=== PATIENT | female | born 1965 | race Caucasian/White ===

== ENCOUNTER 2017-06-07 14:49 | Emergency (ER) | payer OTHER ==
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
[2017-06-07 16:38] VITALS: BP 152/79; PULSE 86; RESP 17; TEMP 97.2
== END 2017-06-07 17:21 | disposition home or self-care (01) ==
LOC: EC 14:49
DX: S22.079A Unspecified fracture of T9-T10 vertebra, initial encounter for closed fracture (principal); S93.402A Sprain of unspecified ligament of left ankle, initial encounter; S80.01XA Contusion of right knee, initial encounter; Z98.890 Other specified postprocedural states; Z87.891 Personal history of nicotine dependence; Z79.899 Other long term (current) drug therapy; Z91.018 Allergy to other foods; Z91.040 Latex allergy status; Z91.013 Allergy to seafood; Z91.011 Allergy to milk products; V89.2XXA Person injured in unspecified motor-vehicle accident, traffic, initial encounter; Y92.410 Unspecified street and highway as the place of occurrence of the external cause
CPT/HCPCS: 71020; 72072; 99284

== ENCOUNTER 2017-06-10 07:52 | Emergency (ER) | payer OTHER ==
[2017-06-10 08:01] VITALS: RESP 18
[2017-06-10] MEDS ORDERED: MELOXICAM 7.5 MG TAB PO STA (08:24)
--- NOTE | 2017-06-10 09:02 | XR ---
Cervical spine HISTORY: Trauma and pain 5 views of the cervical spine submitted on 7 images There is spondylosis, loss of disc height at C5-6. Cervical vertebral bodies show preserved height an d alignment. Prevertebral soft tissues are normal. Bone mineralization within normal limits. No signi ficant foraminal encroachment. IMPRESSION: Degenerative disc disease. No acute fracture or subluxation.
--- NOTE | 2017-06-10 09:08 | XR ---
Left shoulder HISTORY: Left shoulder pain 3 views of the left shoulder There is hypertrophic change of the acromioclavicular joint. Calcifications in the greater tuberosity could be indicative of calcific tendinitis. Bone mineralization is mildly reduced, I question permea tive pattern, lucency following the left humerus proximally. Alignment is maintained. Left lung apex as visualized is normal. No acute fracture or dislocation evident. IMPRESSION: No acute fracture. Lucent appearance of the humerus is indeterminate, consider bone scan, shoulder MRI, metastatic disease, myeloma not excluded. Report relayed to Chinyere telephonically at the time of interpretation.
--- NOTE | 2017-06-10 09:12 | XR ---
AP pelvis HISTORY: Trauma and pain Single frontal view pelvis, no comparisons There are punched-out lucent appearing foci within the proximal lower extremities, pelvis. Alignment and joint spaces maintained. IMPRESSION: No acute fracture or dislocation. Correlate for possible metastatic disease, multiple mye katy.
[2017-06-10 10:14] LABS: Basophils # (A) 0.1 k/uL (0-0.2); Basophils % (A) 1 %; CH 29.8; CHCM 33.5; Eosinophils # (A) 0.1 k/uL (0-0.7); Eosinophils % (A) 1 %; HCT 43.8 % (34.0-46.0); HDW 2.38; HGB 14.3 gm/dL (11.4-16.0); Luc % (Auto) 1; Lymphocytes # (A) 2.2 k/uL (1.0-4.8); Lymphocytes % (A) 20 %; MCH 29.2 pg (25.0-35.0); MCHC 32.7 g/dL (31.0-37.0); MCV 89.3 fL (80.0-100.0); Monocytes # (A) 0.6 k/uL (0-1.0); Monocytes % (A) 5 %; Neutrophils # (A) 8.3 k/uL (1.3-7.7); Neutrophils % (A) 73 %; RDW 14.5 % (11.5-15.5); WBC 11.4 k/uL (3.8-10.6); WBC (Perox) 11.37
[2017-06-10 10:27] LABS: Prothrombin Time 10.2 sec (9.0-12.0)
[2017-06-10 10:29] LABS: ALT 36 U/L (9-52); AST 35 U/L (14-36); Alkaline Phosphatase 234 U/L (38-126); Anion Gap 13 mmol/L; Blood Urea Nitrogen 18 mg/dL (7-17); Calcium 10.6 mg/dL (8.4-10.2); Carbon Dioxide 24 mmol/L (22-30); Chloride 103 mmol/L (98-107); Glucose 94 mg/dL (74-99); Non-African American GFR(MDRD) >60 (>60 ml/min/1.73 sqM); Phosphorus 5.1 mg/dL (2.5-4.5); Sodium 140 mmol/L (137-145); Total Bilirubin 0.6 mg/dL (0.2-1.3); Total Protein 7.2 g/dL (6.3-8.2)
[2017-06-10 10:33] LABS: Partial Thromboplastin Time 22.4 sec (22.0-30.0)
[2017-06-10 10:40] LABS: Potassium 4.2 mmol/L (3.5-5.1)
[2017-06-10] MEDS ORDERED: ACET/COD 300 MG/30 MG STARTER PACK 6 TAB BTL PO STA (11:09)
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
[2017-06-10 11:30] VITALS: BP 134/70; PULSE 83; TEMP 97
== END 2017-06-10 11:30 | disposition home or self-care (01) ==
LOC: EC 07:52
DX: S40.012A Contusion of left shoulder, initial encounter (principal); M89.8X8 Other specified disorders of bone, other site; R74.8 Abnormal levels of other serum enzymes; R79.89 Other specified abnormal findings of blood chemistry; M54.2 Cervicalgia; M25.551 Pain in right hip; M25.552 Pain in left hip; Z87.891 Personal history of nicotine dependence; Z79.899 Other long term (current) drug therapy; Z91.011 Allergy to milk products; Z91.013 Allergy to seafood; Z91.018 Allergy to other foods; Z91.040 Latex allergy status; V43.53XA Car driver injured in collision with pick-up truck in traffic accident, initial encounter; Y92.410 Unspecified street and highway as the place of occurrence of the external cause
CPT/HCPCS: 36415; 72050; 72170; 80053; 83605; 84100; 85025; 85610; 85730; 99284

== ENCOUNTER → 2017-06-21 | Outpatient (CLI) | payer OTHER ==
--- NOTE | 2017-06-21 13:25 | MM ---
Reason for exam: clinical finding. Last mammogram was performed 10 years and 1 month ago. Physical Findings: Nurse Summary: 3cm nodule in the right breast at 12 o'clock (nurses mj). [facility] Diagnostic Mammo w CAD FAHEEM Bilateral CC and MLO view(s) were taken. ML, spot compression CC, and spot compression MLO view(s) were taken of the left breast. Prior study comparison: May 18, 2007, bilateral [place] screening mammogram, performed at [facility]. The breast tissue is heterogeneously dense. This may lower the sensitivity of mammography. Spiculated mass 3.8 x 3.3 x 3.7cm with pleomorphic calcifications in the right breast at 12 o'clock. Additional spiculated mass in the right axilla measures 2 x 1.5cm. Asymmetric density upper outer quadrant left breast improves with spot imaging. Ultrasound recommended. These results were verbally communicated with the patient and result sheet given to the patient on 06/21/17. ASSESSMENT: Incomplete: need additional imaging evaluation, BI-RAD 0 RECOMMENDATION: Ultrasound of both breasts.
--- NOTE | 2017-06-21 13:36 | USB ---
Reason for exam: additional evaluation requested from abnormal screening. US Breast Limited BILAT Technologist: Denisse Noriega Right breast ultrasound includes all four quadrants, the retroareolar region and axilla. Finding demonstrates a 2.9 x 3.1 x 2.5cm oval, irregular, hypoechoic lesion at 12 o'clock for which a biopsy is recommended, a 1.9 x 1.1 x 1.7cm irregular, taller than wide, hypoechoic, vascular lesion at the axillary tail for which a biopsy is recommended and a 0.8 x 0.5 x 0.4cm questionable lymph node at the axillary tail. Left breast ultrasound demonstrates so solid or cystic masses in the upper outer quadrant. These results were verbally communicated with the patient and result sheet given to the patient on 06/21/17. ASSESSMENT: Highly suggestive of malignancy, BI-RAD 5 - Right RECOMMENDATION: Ultrasound core biopsy of the right breast. (right breast x 2) Manage patient on a clinical basis. Called Dr. Hope with mammographic findings. Biopsy scheduled for 06/24/17 at 11:30. PRELIMINARY REPORT CALLED AND FAXED TO DR. HOPE ON 06/21/17. Follow-up diagnostic mammogram of the left breast in 6 months.
== END | disposition home or self-care (01) ==
LOC: RADMAMWWP 09:58
PROVIDERS: ATTEND Internal Medicine Hematology & Oncology
DX: R92.8 Other abnormal and inconclusive findings on diagnostic imaging of breast (principal); N63.0 Unspecified lump in unspecified breast
CPT/HCPCS: 76642; G0204

== ENCOUNTER → 2017-06-22 | Outpatient (CLI) | payer OTHER ==
--- NOTE | 2017-06-22 23:23 | MR ---
EXAMINATION TYPE: MR thoracic spine wo/w con DATE OF EXAM: 06/22/2017 COMPARISON: NONE HISTORY: Back Pain / Cancer of Unknown Primary CONTRAST: Standard multiplanar, multisequence MRI departmental protocol utilizing 7.5 mL intravenous Gadavist g adolinium contrast. FINDINGS: On the T1-weighted images there is decreased signal in numerous thoracic vertebral bodies i n a patchy distribution. There is a 25% compression deformity of T10. Abnormal decreased signal also extends into the pedicles of T10 and T11. There is T7 low signal extending into the pedicles. There i s slight decreased signal in T4 vertebra and a small area of T5. The other vertebra show smaller patc hy areas of abnormal decreased signal. The contrast images show numerous areas of pathologic enhancement. This extends into the pedicles. Th is is most notable at T10 T11 T7 T-3. There is no spinal stenosis. Thoracic spinal cord has normal signal pattern. There is no paraspinal m ass. IMPRESSION: Mild compression fracture of T10. Patchy abnormal decreased signal in multiple vertebral bodies with pathologic enhancement pattern including the pedicles that is consistent with malignancy.
== END | disposition home or self-care (01) ==
LOC: RADMRIMAIN 07:30
PROVIDERS: ATTEND Internal Medicine Hematology & Oncology
DX: S22.079A Unspecified fracture of T9-T10 vertebra, initial encounter for closed fracture (principal); C80.0 Disseminated malignant neoplasm, unspecified
CPT/HCPCS: 72157; A9581

== ENCOUNTER → 2017-07-12 | Outpatient (CLI) | payer OTHER | END | disposition home or self-care (01) | LOC: LABWHC1 13:31 | PROVIDERS: ATTEND Radiology Radiation Oncology | DX: O02.81 Inappropriate change in quantitative human chorionic gonadotropin (hCG) in early pregnancy (principal); Z3A.00 Weeks of gestation of pregnancy not specified | CPT/HCPCS: 36415; 84702 ==

== ENCOUNTER 2017-07-23 11:35 | Inpatient (IN) | payer OTHER ==
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
[2017-07-23] MEDS ORDERED: ONDANSETRON 4 MG/2 ML VIAL IVP STA (13:55)
[2017-07-23] MEDS ORDERED: HYDROmorphone 1 MG/ML 1 ML SYRINGE IVP STA (13:55)
--- NOTE | 2017-07-23 14:02 | XR ---
EXAMINATION TYPE: XR Hip RT and AP Pelvis DATE OF EXAM: 07/23/2017 COMPARISON: 06/10/2017 HISTORY: Hip pain TECHNIQUE: A single AP view of the pelvis is obtained. Two views of the right hip are obtained. FINDINGS: There is an acute fracture of the right femoral neck with significant impaction. There is no dislocation. Pelvic ring is intact. CONCLUSION: Acute fracture right femoral neck.
--- NOTE | 2017-07-23 14:03 | XR ---
EXAMINATION TYPE: XR knee limited RT DATE OF EXAM: 07/23/2017 COMPARISON: NONE HISTORY: Pain TECHNIQUE: 2 views FINDINGS: I see no fracture nor dislocation. There is probably subcutaneous edema. There is narrowing of the lateral joint space. IMPRESSION: Osteoarthritis in the lateral joint space. No fracture seen.
--- NOTE | 2017-07-23 14:07 | XR ---
EXAMINATION TYPE: XR lumbar spine 2 or 3V DATE OF EXAM: 07/23/2017 COMPARISON: 07/16/2017 HISTORY: Pain TECHNIQUE: 4 views FINDINGS: The vertebra have fairly normal alignment. There is slight narrowing of disc spaces. There is loss of height of L5 L3 L1 T10 related to multiple pathologic compression fractures. IMPRESSION: Multiple mild compression fractures without change compared to CT scan of 07/16/2017. Mot tled lucency in the bony structures consistent with metastatic disease.
--- NOTE | 2017-07-23 14:08 | XR ---
EXAMINATION TYPE: XR ankle limited RT DATE OF EXAM: 07/23/2017 COMPARISON: NONE HISTORY: Pain TECHNIQUE: 2 views FINDINGS: There are large plantar and Achilles calcaneal spurs. Ankle mortise is anatomic. I see no f racture nor dislocation. There is soft tissue swelling of the forefoot. IMPRESSION: Calcaneal spurring. No fracture seen.
--- NOTE | 2017-07-23 14:10 | XR ---
EXAMINATION TYPE: XR chest 1V DATE OF EXAM: 07/23/2017 COMPARISON: 06/07/2017 HISTORY: Hip pain TECHNIQUE: Single frontal view of the chest is obtained. FINDINGS: There is no heart failure nor confluent pneumonic infiltrate. Costophrenic angles are judith r. IMPRESSION: No active cardiopulmonary disease. No adverse change compared to old exam.
[2017-07-23] MEDS ORDERED: NALOXONE 0.4 MG/ML 1 ML VIAL IV PRN (14:34)
[2017-07-23 14:36] LABS: Anisocytosis Slight; Basophils % (A) 0 %; Eosinophils # (A) 0.2 k/uL (0-0.7); Eosinophils % (A) 1 %; HCT 36.1 % (34.0-46.0); HGB 11.4 gm/dL (11.4-16.0); Lymphocytes # (A) 1.7 k/uL (1.0-4.8); Lymphocytes % (A) 14 %; MCH 28.8 pg (25.0-35.0); MCHC 31.5 g/dL (31.0-37.0); MCV 91.4 fL (80.0-100.0); Monocytes # (A) 0.6 k/uL (0-1.0); Monocytes % (A) 5 %; Neutrophils # (A) 9.4 k/uL (1.3-7.7); Neutrophils % (A) 78 %; Platelet Count 433 k/uL (150-450); RBC 3.95 m/uL (3.80-5.40); RDW 16.5 % (11.5-15.5); WBC 12.1 k/uL (3.8-10.6)
[2017-07-23 14:44] LABS: ALT 59 U/L (9-52); AST 33 U/L (14-36); Albumin 3.1 g/dL (3.5-5.0); Alkaline Phosphatase 329 U/L (38-126); Anion Gap 3 mmol/L; Blood Urea Nitrogen 14 mg/dL (7-17); Calcium 8.4 mg/dL (8.4-10.2); Carbon Dioxide 27 mmol/L (22-30); Chloride 109 mmol/L (98-107); Glucose 96 mg/dL (74-99); Potassium 4.3 mmol/L (3.5-5.1); Sodium 139 mmol/L (137-145); Total Bilirubin 0.8 mg/dL (0.2-1.3); Total Protein 5.5 g/dL (6.3-8.2)
[2017-07-23 15:00] LABS: Partial Thromboplastin Time 20.6 sec (22.0-30.0)
--- NOTE | 2017-07-23 15:00 | XR ---
EXAMINATION TYPE: XR femur RT DATE OF EXAM: 07/23/2017 COMPARISON: NONE HISTORY: Pain TECHNIQUE: 4 views FINDINGS: There is impacted subcutaneous fracture of the right femoral neck. There is no dislocation. Mid and distal femur are intact. There is some relative lucency of the femoral neck consistent with pathologic fracture. IMPRESSION: Acute fracture of femoral neck.
[2017-07-23] MEDS: HYDROmorphone 1 MG/ML 1 ML SYRINGE IVP PRN ×2 (16:53→20:28)
[2017-07-23 17:25] VITALS: BMI 27.5
[2017-07-23] MEDS ORDERED: HYDROcodone/APAP 5-325MG 1 EACH TAB PO PRN (18:59)
[2017-07-23] MEDS ORDERED: ALPRAZolam 0.25 MG TAB PO PRN (18:59)
[2017-07-23] MEDS ORDERED: ONDANSETRON 4 MG TAB PO PRN (19:00)
[2017-07-23] MEDS ORDERED: LORATADINE 10 MG TAB PO PRN (19:00)
[2017-07-23] MEDS ORDERED: SUMATRIPTAN NASAL PRN (19:00)
[2017-07-23] MEDS ORDERED: Acetaminophen-Codeine 300-30mg TAB PO PRN (19:00)
[2017-07-23] MEDS ORDERED: METHOCARBAMOL 500 MG TAB PO PRN (19:00)
[2017-07-23] MEDS ORDERED: TEMAZEPAM 15 MG CAP PO PRN (21:00)
[2017-07-23] MEDS: SENNOSIDES 8.6 MG TAB PO SCH (21:36)
[2017-07-23] MEDS: MORPHINE SULFATE ER 15 MG TABLET PO SCH (21:39)
[2017-07-23] MEDS: HEPARIN SODIUM,PORCINE 5,000 UNIT/ML 1 ML VIAL SQ SCH (21:39)
[2017-07-23] MEDS: DEXAMETHASONE 4 MG TAB PO SCH (21:39)
[2017-07-23] MEDS: CYCLOBENZAPRINE 5 MG TAB PO PRN (23:35)
[2017-07-23 23:53] LABS: Appearance,Urine Clear (Clear); Bacteria,Urine Rare /hpf; Bilirubin,Urine Negative (Negative); Blood,Urine Small (Negative); Color,Urine Light Yellow; Glucose,Urine (UA) Negative (Negative); Ketones,Urine Negative (Negative); Leukocyte Esterase,Urine Small (Negative); Mucus,Urine Moderate /hpf; Nitrite,Urine Negative (Negative); PH, Urine 6.5 (5.0-8.0); Protein,Urine Negative (Negative); RBC,Urine 13 /hpf (0-5); Squamous Epithelial Cell,Urine <1 /hpf (0-4); Urobilinogen,Urine <2.0 mg/dL (<2.0); WBC,Urine 11 /hpf (0-5)
[2017-07-24] MEDS: HYDROmorphone 1 MG/ML 1 ML SYRINGE IVP PRN ×5 (02:17→17:25)
[2017-07-24] MEDS: ONDANSETRON 4 MG/2 ML VIAL IVP PRN ×2 (05:48→14:23)
[2017-07-24 07:18] LABS: Basophils % (A) 0 %; Eosinophils % (A) 0 %; HCT 36.7 % (34.0-46.0); HGB 11.4 gm/dL (11.4-16.0); Lymphocytes # (A) 0.8 k/uL (1.0-4.8); Lymphocytes % (A) 8 %; MCHC 31.1 g/dL (31.0-37.0); MCV 93.2 fL (80.0-100.0); Mean Platelet Volume 6.7; Monocytes # (A) 0.3 k/uL (0-1.0); Monocytes % (A) 3 %; Neutrophils # (A) 9.4 k/uL (1.3-7.7); Neutrophils % (A) 89 %; Platelet Count 490 k/uL (150-450); RBC 3.94 m/uL (3.80-5.40); RDW 15.4 % (11.5-15.5); WBC 10.5 k/uL (3.8-10.6)
[2017-07-24] MEDS: MORPHINE SULFATE ER 15 MG TABLET PO SCH ×2 (07:20→20:36)
[2017-07-24] MEDS: TAMOXIFEN 10 MG TAB PO SCH (07:22)
[2017-07-24] MEDS: SENNOSIDES 8.6 MG TAB PO SCH ×2 (07:23→20:37)
[2017-07-24] MEDS: PANTOPRAZOLE 40 MG TABLET PO SCH (07:23)
[2017-07-24] MEDS: HEPARIN SODIUM,PORCINE 5,000 UNIT/ML 1 ML VIAL SQ SCH ×2 (07:23→20:37)
[2017-07-24] MEDS: MELOXICAM 7.5 MG TAB PO SCH (07:23)
[2017-07-24] MEDS: MAGNESIUM OXIDE 400 MG TAB PO SCH (07:23)
[2017-07-24] MEDS: MULTIVITAMINS, THERA 1 EACH TAB PO SCH (07:23)
[2017-07-24] MEDS: POTASSIUM CHLORIDE ORAL LIQUID 40 MEQ/30 ML CUP PO SCH (07:24)
[2017-07-24 07:31] LABS: ALT 50 U/L (9-52); AST 23 U/L (14-36); Albumin 3.1 g/dL (3.5-5.0); Alkaline Phosphatase 312 U/L (38-126); Anion Gap 6 mmol/L; Blood Urea Nitrogen 10 mg/dL (7-17); Calcium 8.7 mg/dL (8.4-10.2); Carbon Dioxide 27 mmol/L (22-30); Chloride 107 mmol/L (98-107); Glucose 131 mg/dL (74-99); Potassium 4.7 mmol/L (3.5-5.1); Sodium 140 mmol/L (137-145); Total Bilirubin 0.7 mg/dL (0.2-1.3); Total Protein 5.6 g/dL (6.3-8.2)
--- NOTE | 2017-07-24 07:50 | HP ---
HISTORY AND PHYSICAL DATE OF VISIT: 07/23/2017. REASON FOR ADMISSION: Right femoral neck fracture. HISTORY: Swati is a very pleasant, 51-year-old female, who carries a recent diagnosis of stage IV metastatic breast cancer with extensive metastasis to her to her spine. She had just as recently as 2 days ago been admitted to [facility] in [place] for treatment for her back. She is in currently being worked up for her metastatic breast cancer by Dr. Hope. There was also mention of a possibility for . This was as per Swati. She was scheduled to meet with [facility] specialist with regards to elevated levels that were concerning for potential . Earlier today, she felt as if her right leg gave out. She fell onto her right side and had immediate pain in her right hip. She was brought to [facility] via ambulance. Workup including x-rays revealed a displaced femoral neck fracture. She was admitted to my service. Swati has no complaints of pain other than right hip. MEDICAL HISTORY: Breast cancer with metastasis to the bone. SURGICAL HISTORY: Cholecystectomy. MEDICATIONS: Include potassium, dexamethasone, tamoxifen, [place] 10 mg and Ms Contin 15 mg. ALLERGIES: AVOCADO, IODINATED CONTRAST, LATEX, SHELLFISH, WHEAT, COCONUT AND LACTOSE. SOCIAL HISTORY: She is a former smoker. EXAM: Her T-max is 98.4, blood pressure 149/75, heart rate is 107, O2 saturation is 99% on room air. On physical exam, her right hip is flexed and externally rotated. She has no pain with palpation of the distal femur, knee, tibia, fibula, ankle or foot. She has intact flexion-extension, inversion, eversion of the right foot. She has intact flexion extension of all of her toes and she has intact lateral, medial, plantar and first dorsal web space sensation in the right foot. She has 2+ palpable posterior tibial pulse and brisk capillary refill in all of her toes. She has no pain with palpation and range of motion of all other long bones and joints with the exception of the right hip. X-RAYS: Views of the AP pelvis, right hip, as well as right femur reveals a significantly displaced femoral neck fracture. There is no evidence of any bony metastasis about the hip or right femur. LABORATORIES: White count 12.1, hemoglobin 11.4, platelets are 433, INR is 1.0. IMPRESSION: 1. Right femoral neck fracture. 2. History of stage IV metastatic breast cancer with metastasis to bone. RECOMMENDATIONS: I discussed the fracture as well as plan for care with Swati at the bedside today. All of this diagnosis has come rather quickly for a Swati. She has only recently been diagnosed with breast cancer with metastasis to the bone. According to Swati, she has very extensive metastasis to her spine. She has noted that she was recently admitted to [facility] 2 days ago. There is also this vague history of elevated levels and there was some concern for an active . Swati is very skeptical of that as she feels as if that is not possible; however, she was being worked up for that and had an upcoming appointment with [facility]. Given her metastatic breast cancer as well as the fact she is on dexamethasone, I feel that it would be more reasonable course to proceed with right hip hemiarthroplasty instead of attempting an open reduction internal fixation of her right hip. I did discuss this decision-making process with Swati. This will allow her to mobilize much quicker. I do feel given the significant displacement of the fracture as well as her medical comorbidities the ability to successfully heal a femoral neck fracture will be very low. My thought processes is that we can mobilize Swati much quicker and avoid any further comorbidities as much as possible with hemiarthroplasty. This will allow for earlier mobilization as well. The risks of the procedure were discussed with Swati in detail. I do believe that she will need workup tomorrow by the medical service and possibly the oncology service prior to surgery. She will need to be cleared for surgery by those services. I did discuss that she is at increased risk for DVT and possible pulmonary embolism and possible fatal pulmonary embolus as a result of her cancer diagnosis. She is also at a slightly increased risk of infection given that she is currently on dexamethasone as well. Further risks include risk of bleeding, infection, damage to blood vessels or nerves, and periprosthetic fracture. There is also a potential risk for instability in the hip in the future which could require revision operation. All of Swati's questions with regards to the risks of procedure were answered to her satisfaction. She does understand the postoperative recovery as well. All of her questions were answered to her satisfaction. We will tentatively plan to proceed with right hip hemiarthroplasty when she is cleared by the medical and service. Likely this will take place the day after tomorrow on July 25 first thing in the morning. MMODL / IJN: [id number] /
--- NOTE | 2017-07-24 09:43 | P.PN ---
Subjective Progress Note Date: 07/24/17 Principal diagnosis: Right hip fracture Patient was admitted yesterday after a fall resulted in a right displaced femoral neck fracture. Dr. Crawford has seen the patient and is recommended proceeding with a right hip hemiarthroplasty. The patient also has multiple medical issues including history of breast cancer and metastasis to his spine. She is currently undergoing treatment. Dr. Hope and Dr. Cline have been consulted for preoperative clearance. She also states that she had a history of elevated hCG where repeat labs of the urine and blood were performed as well as a transvaginal ultrasound. The transvaginal ultrasound was done June 2017 and appeared to be negative for . She also states that last time she had intercourse was in February 2017 and had a menstrual cycle in April 2017. She has right hip pain this morning as expected but denies any other new complaints. She denies calf pain, fever, chills, chest pain or shortness of breath.. Objective - Vital Signs Vital signs: Vital Signs Temp 98.2 F 07/24/17 07:00 Pulse 122 H 07/24/17 07:00 Resp 16 07/24/17 07:00 BP 144/93 07/24/17 07:00 Pulse Ox 97 07/24/17 07:00 Intake & Output 07/23/17 07/24/17 07/24/17 18:59 06:59 18:59 Intake Total 610 Output Total 700 1900 Balance -700 -1290 Weight 75 kg Intake: IV 10 saline flush 10 Oral 600 Output: Urine 700 1900 Uretheral (Arias) 700 Other: Voiding Method Indwelling Catheter Indwelling Catheter # Bowel Movements 3 - Exam Inspection of the right lower extremity shows a shortened externally rotated leg. There is some ecchymoses at the right knee. There is no wounds or open lacerations. There is no erythema. Motor status is grossly intact as well as sensation to light touch throughout the right lower extremity. Calf is soft and nontender. 2+ dorsalis pedis pulse and less than 2 second capillary refill is present. - Constitutional General appearance: Present: no acute distress - Psychiatric Psychiatric: Present: A&O x's 3, appropriate affect, intact judgment & insight - Labs CBC & Chem 7: 07/24/17 06:19 07/24/17 06:19 Labs: Abnormal Lab Results - Last 24 Hours (Table) 07/23/17 07/23/17 07/23/17 Range/Units 14:25 14:25 14:25 WBC 12.1 H (3.8-10.6) k/uL RDW 16.5 H (11.5-15.5) % Plt Count (150-450) k/uL Neutrophils # 9.4 H (1.3-7.7) k/uL Lymphocytes # (1.0-4.8) k/uL APTT 20.6 L (22.0-30.0) sec Chloride 109 H (98-107) mmol/L Glucose (74-99) mg/dL ALT 59 H (9-52) U/L Alkaline Phosphatase 329 H (38-126) U/L Total Protein 5.5 L (6.3-8.2) g/dL Albumin 3.1 L (3.5-5.0) g/dL Urine Blood (Negative) Ur Leukocyte Esterase (Negative) Urine RBC (0-5) /hpf Urine WBC (0-5) /hpf Urine WBC Clumps (None) /hpf Urine Bacteria (None) /hpf Urine Mucus (None) /hpf 07/23/17 07/24/17 07/24/17 Range/Units 23:40 06:19 06:19 WBC (3.8-10.6) k/uL RDW (11.5-15.5) % Plt Count 490 H (150-450) k/uL Neutrophils # 9.4 H (1.3-7.7) k/uL Lymphocytes # 0.8 L (1.0-4.8) k/uL APTT (22.0-30.0) sec Chloride (98-107) mmol/L Glucose 131 H (74-99) mg/dL ALT (9-52) U/L Alkaline Phosphatase 312 H (38-126) U/L Total Protein 5.6 L (6.3-8.2) g/dL Albumin 3.1 L (3.5-5.0) g/dL Urine Blood Small H (Negative) Ur Leukocyte Esterase Small H (Negative) Urine RBC 13 H (0-5) /hpf Urine WBC 11 H (0-5) /hpf Urine WBC Clumps Rare H (None) /hpf Urine Bacteria Rare H (None) /hpf Urine Mucus Moderate H (None) /hpf Assessment and Plan (1) Closed right hip fracture Narrative/Plan: She has been placed nothing by mouth after midnight. Procedure and consent for right hip hemiarthroplasty has been ordered with plans for tentatively proceeding tomorrow 07/25/2017. I also ordered IV antibiotics due to urinary tract infection findings on her UA. Preoperative clearance is pending per Dr. Cline and Dr. Hope. Continue with pain management, DVT prophylaxis and medical management in the interim. Current Visit: Yes Status: Acute Priority: Medium Code(s): S72.001A - FRACTURE OF UNSP PART OF NECK OF RIGHT FEMUR, INIT SNOMED Code(s): 025715922 Time with Patient: Less than 30
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
[2017-07-24] MEDS: CYCLOBENZAPRINE 5 MG TAB PO PRN (10:58)
[2017-07-24] MEDS: cefTRIAXone IN SWFI 1,000 MG/10 ML SYRINGE IVP SCH (10:59)
[2017-07-24] MEDS ORDERED: FUROSEMIDE 10 MG/ML 2 ML VIAL IV ONE (12:00)
[2017-07-24] MEDS: DEXAMETHASONE 4 MG TAB PO SCH (20:36)
[2017-07-25] MEDS: HYDROmorphone 1 MG/ML 1 ML SYRINGE IVP PRN ×4 (00:17→17:30)
[2017-07-25 06:36] LABS: Anisocytosis Slight; Basophils % (A) 0 %; Eosinophils % (A) 0 %; HCT 34.3 % (34.0-46.0); HGB 10.7 gm/dL (11.4-16.0); Lymphocytes % (A) 11 %; MCH 29.6 pg (25.0-35.0); MCHC 31.1 g/dL (31.0-37.0); MCV 95.1 fL (80.0-100.0); Mean Platelet Volume 7.2; Monocytes # (A) 0.3 k/uL (0-1.0); Monocytes % (A) 3 %; Neutrophils # (A) 7.8 k/uL (1.3-7.7); Neutrophils % (A) 85 %; Platelet Count 429 k/uL (150-450); RBC 3.61 m/uL (3.80-5.40); RDW 16.6 % (11.5-15.5); WBC 9.2 k/uL (3.8-10.6)
[2017-07-25 06:50] LABS: Anion Gap 5 mmol/L; Blood Urea Nitrogen 12 mg/dL (7-17); Calcium 8.8 mg/dL (8.4-10.2); Carbon Dioxide 25 mmol/L (22-30); Chloride 107 mmol/L (98-107); Glucose 123 mg/dL (74-99); Potassium 4.9 mmol/L (3.5-5.1); Sodium 137 mmol/L (137-145)
[2017-07-25] MEDS: MELOXICAM 7.5 MG TAB PO SCH (07:40)
[2017-07-25] MEDS: HEPARIN SODIUM,PORCINE 5,000 UNIT/ML 1 ML VIAL SQ SCH ×3 (07:40→23:21)
[2017-07-25] MEDS: POTASSIUM CHLORIDE ORAL LIQUID 40 MEQ/30 ML CUP PO SCH (07:40)
[2017-07-25] MEDS: PANTOPRAZOLE 40 MG TABLET PO SCH (07:41)
[2017-07-25] MEDS: MORPHINE SULFATE ER 15 MG TABLET PO SCH ×2 (07:41→20:59)
[2017-07-25] MEDS: TAMOXIFEN 10 MG TAB PO SCH (07:42)
[2017-07-25] MEDS: MAGNESIUM OXIDE 400 MG TAB PO SCH (07:42)
[2017-07-25] MEDS: SENNOSIDES 8.6 MG TAB PO SCH ×4 (07:42→21:00)
[2017-07-25] MEDS: cefTRIAXone IN SWFI 1,000 MG/10 ML SYRINGE IVP SCH (07:42)
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
--- NOTE | 2017-07-25 10:39 | P.PN ---
Subjective Progress Note Date: 07/25/17 Principal diagnosis: Right hip fracture Patient was admitted after a fall resulted in a right displaced femoral neck fracture. Dr. Crawford has seen the patient and has recommended proceeding with a right hip hemiarthroplasty. The patient also has multiple medical issues including history of breast cancer and metastasis to her spine. She is currently undergoing treatment. Dr. Hope and Dr. Cline have been consulted for preoperative clearance. She also states that she had a history of elevated hCG where repeat labs of the urine and blood were performed as well as a transvaginal ultrasound. The transvaginal ultrasound was done June 2017 and appeared to be negative for . She also states that last time she had intercourse was in February 2017 and had a menstrual cycle in April 2017. Additionally there was concern for cord compression syndrome where she had an MRI performed at [facility] recently on her cervical, thoracic and lumbar spine. There were all negative for cord compression or significant canal stenosis. Surgery that was plan for this morning has been postponed due to elevated cardiac enzymes yesterday. She is awaiting cardiology clearance. Tentatively plan to proceed with surgical intervention, Tuesday, 07/26. She has right hip pain this morning as expected but denies any other new complaints. She denies any loss of bowel or bladder control. She denies saddle anesthesia. She denies any new or worsening radicular symptoms of the upper or lower extremities. She denies calf pain, fever, chills, chest pain or shortness of breath.. Objective - Vital Signs Vital signs: Vital Signs Temp 98.1 F 07/25/17 07:00 Pulse 86 07/25/17 07:00 Resp 20 07/25/17 07:00 BP 131/79 07/25/17 07:00 Pulse Ox 97 07/25/17 07:00 Intake & Output 07/24/17 07/25/17 07/25/17 18:59 06:59 18:59 Intake Total 30 250 Output Total 1950 Balance 30 -1700 Weight 75 kg Intake: IV 30 10 saline flush 30 10 Oral 240 Output: Urine 1950 Uretheral (Arias) 1950 Other: Voiding Method Indwelling Catheter Indwelling Catheter - Exam Inspection of the right lower extremity shows a shortened externally rotated leg. There is some ecchymoses at the right knee. There is no wounds or open lacerations. There is no erythema. Motor status is grossly intact as well as sensation to light touch throughout the right lower extremity. Calf is soft and nontender. 2+ dorsalis pedis pulse and less than 2 second capillary refill is present. Bilateral lower extremities are neurologically intact with motor and sensation L2 through S1 equal bilaterally. There is no clonus. There is negative Babinski. There is no hyperreflexia. - Constitutional General appearance: Present: no acute distress - Psychiatric Psychiatric: Present: A&O x's 3, appropriate affect, intact judgment & insight - Labs CBC & Chem 7: 07/25/17 06:00 07/25/17 06:00 Labs: Abnormal Lab Results - Last 24 Hours (Table) 07/24/17 07/24/17 07/25/17 Range/Units 12:53 18:33 06:00 RBC 3.61 L (3.80-5.40) m/uL Hgb 10.7 L (11.4-16.0) gm/dL RDW 16.6 H (11.5-15.5) % Neutrophils # 7.8 H (1.3-7.7) k/uL Creatinine (0.52-1.04) mg/dL Glucose (74-99) mg/dL Troponin I 0.086 H* 0.089 H* (0.000-0.034) ng/mL 07/25/17 07/25/17 Range/Units 06:00 06:00 RBC (3.80-5.40) m/uL Hgb (11.4-16.0) gm/dL RDW (11.5-15.5) % Neutrophils # (1.3-7.7) k/uL Creatinine 0.51 L (0.52-1.04) mg/dL Glucose 123 H (74-99) mg/dL Troponin I 0.066 H* (0.000-0.034) ng/mL Assessment and Plan (1) Closed right hip fracture Narrative/Plan: Surgery was postponed this morning due to elevated cardiac enzymes yesterday. She is awaiting now cardiology clearance. She has been placed nothing by mouth after midnight tonight. Procedure and consent for right hip hemiarthroplasty has been ordered with plans for tentatively proceeding tomorrow afternoon, 07/26. Continue with pain management, DVT prophylaxis and medical management in the interim. Current Visit: Yes Status: Acute Priority: Medium Code(s): S72.001A - FRACTURE OF UNSP PART OF NECK OF RIGHT FEMUR, INIT SNOMED Code(s): 460807177 Time with Patient: Less than 30
--- NOTE | 2017-07-25 10:57 | PN ---
PROGRESS NOTE DATE OF SERVICE: 07/24/2017. INTERVAL HISTORY: This 51-year-old woman who was admitted after right hip fracture also had extensive metastatic malignancy. The patient also had apparent high HCG previously, but has been ruled out by negative ultrasound recently in the outpatient setting. The patient also had a indeterminate troponin. No chest pain. No palpitations. No fever. EXAM: Alert, oriented x3. Pulse 121, blood pressure 130/60, respirations 16, temperature 98.1, pulse ox 94% on room air. HEENT: Conjunctivae normal. NECK: No jugular venous distention. CARDIOVASCULAR: S1, S2. RESPIRATORY: Breath sounds diminished in the bases. A few scattered rhonchi. No crackles. ABDOMEN: Soft, nontender. LEGS: Status post right hip fracture. NERVOUS SYSTEM: No focal deficits. LABS: WBC 10.5, hemoglobin 11.4, troponin 0.86 and 0.89. Alk phos is 312. ASSESSMENT: 1. Acute right hip fracture, possibly pathologic fracture. 2. Breast cancer with metastasis. 3. History of migraine. 4. Chronic pain syndrome. 5. History of cholecystectomy. 6. Troponin 0.086 indeterminate. 7. Sinus tachycardia in EKG. 8. Increased WBC, improved. RECOMMENDATIONS AND DISCUSSION: This 51-year-old woman who presented with multiple complex medical issues, the patient currently medically stable. She will be cleared for surgery with some extra risk , but however, I would also recommend Cardiology evaluation also because of the abnormal EKG and indeterminate troponins also. Otherwise, await Dr. Hope's opinion as well. Prognosis guarded. Further recommendations to follow. MMODL / IJN: [id number] / KEYONNA
--- NOTE | 2017-07-25 11:57 | CONS ---
CONSULTATION Mrs. Valera is a 51-year-old female, who is seen for cardiac evaluation. This patient's medical records reviewed. We are requested to see the patient in consultation because of the mild rise in the troponin. This patient has a history of metastatic breast carcinoma and has been thoroughly investigated. The patient has a multiple metastasis to the bone. This patient had a fall and sustained a hip fracture. The patient did not pass out completely. The patient denies any prior cardiac history. The patient denies any history of angina or chest pain. There is no history of diabetes or hypertension. PAST MEDICAL HISTORY: Includes history of cholecystectomy, arthroscopic surgery, right knee and elbow surgery. SOCIAL HISTORY: Patient used to smoke, she quit in 2001. MEDICATIONS: The patient's current medications includes: 1. Rosewood. 2. Heparin. 3. Robaxin. 4. Restoril. 5. Protonix. 6. Xanax. 7. Rocephin. PHYSICAL EXAMINATION: At present reveals a 51-year-old female, who does not appear to be in any acute distress. The patient is he is afebrile. Blood pressure is 131/79 mmHg. The patient's heart rate varies between 90-120 per minute. HEENT examination is negative. NECK: Supple. There is no increase in jugular venous pressure. Both the carotid pulses are felt. There is no bruit. Chest is symmetrical. Heart the PMI is not felt. First and second heart sounds are normal. There is no evidence of any murmur. Lungs are clinically clear to auscultation and percussion. ABDOMEN: Soft. Liver and spleen are not enlarged. Bowel sounds are heard. Extremities peripheral pulses are 2+. EKG shows evidence of sinus tachycardia. Electrolytes are normal. Hemoglobin is 10.1, initial troponin was 0.089. Second troponin was 0.086 and the 3rd troponin is 0.066. FINAL IMPRESSION: 1. This patient is admitted with a right hip fracture. Patient has a known history of breast carcinoma with bone metastasis. 2. The patient has a mild rise in the troponin without any symptoms suggestive of angina. EKG does not show any ischemic changes. We will repeat the EKG and echocardiogram to rule out any wall motion abnormality. Overall picture is not suggestive of acute coronary syndrome. The rise in the troponin does not show any typical rise and fall and it is not suggestive of acute coronary syndrome. It could be secondary to supply and demand mismatch. 3. We will start the patient on a small dose of Lopressor 25 mg q.12h hourly in view of the bradycardia. If echocardiogram does not show any significant wall motion abnormality, one can proceed with the surgery. The patient does carry the risk of surgery. This was discussed with the patient and she wants to proceed with it. Thank you for the consultation. DENIA / SERAN: [id number] /
[2017-07-25] MEDS: MULTIVITAMINS, THERA 1 EACH TAB PO SCH (13:24)
[2017-07-25] MEDS: DEXAMETHASONE 4 MG TAB PO SCH (21:00)
[2017-07-25] MEDS: METOPROLOL TARTRATE 25 MG TAB PO SCH (21:24)
--- NOTE | 2017-07-26 06:46 | PN ---
PROGRESS NOTE DATE OF SERVICE: 07/25/2017 This 51-year-old woman who was admitted with right hip fracture also had significant history of metastatic malignancy also. Multiple consultants are following the patient closely including Dr. Hope, Orthopedic Surgery and Cardiology. Troponins were found to be indeterminate. The elevated level has been addressed by Dr. Hope. No chest pain or palpitation. No fever. PHYSICAL EXAM: On exam, alert and oriented x3. Pulse 109, blood pressure 146/93, respirations 20, temperature 98.2, pulse ox 98% on room air. HEENT: Conjunctivae normal. Neck: No jugular venous distention. CARDIOVASCULAR: S1 and S2 muffled. RESPIRATORY: Breath sounds diminished at the bases. A few scattered rhonchi. No crackles. ABDOMEN: Soft, nontender. No mass palpable. LEGS: Status post right hip fracture. NERVOUS SYSTEM: No focal deficits. LABS: WBC 9.2, hemoglobin 10.7. Troponin 0.0666. ASSESSMENT: 1. Acute right hip fracture, possibly pathologic fracture. 2. Breast cancer with metastasis. 3. History of migraine. 4. Chronic pain syndrome. 5. History of cholecystectomy. 6. Troponin 0.86 indeterminate. 7. Sinus tachycardia on EKG. 8. Increased WBC, improved. RECOMMENDATIONS AND DISCUSSION: Recommend to continue current medications. Continue symptomatic treatment. Otherwise, the patient is cleared for surgery with some extra risks. Otherwise, the patient is stable. As mentioned earlier, very unlikely as addressed by Dr. Hope. Continue to monitor. Prognosis guarded. Further recommendations to follow. MMODL / IJN: [id number] / MTDD
[2017-07-26 07:36] LABS: Anisocytosis Slight; Basophils % (A) 0 %; Eosinophils % (A) 0 %; HCT 36.5 % (34.0-46.0); HGB 11.2 gm/dL (11.4-16.0); Lymphocytes # (A) 1.2 k/uL (1.0-4.8); Lymphocytes % (A) 11 %; MCH 29.3 pg (25.0-35.0); MCHC 30.7 g/dL (31.0-37.0); MCV 95.3 fL (80.0-100.0); Mean Platelet Volume 7.1; Monocytes # (A) 0.3 k/uL (0-1.0); Monocytes % (A) 3 %; Neutrophils # (A) 8.7 k/uL (1.3-7.7); Neutrophils % (A) 84 %; Platelet Count 445 k/uL (150-450); RBC 3.83 m/uL (3.80-5.40); RDW 16.8 % (11.5-15.5); WBC 10.3 k/uL (3.8-10.6)
[2017-07-26 07:47] LABS: Anion Gap 7 mmol/L; Blood Urea Nitrogen 16 mg/dL (7-17); Calcium 8.6 mg/dL (8.4-10.2); Carbon Dioxide 26 mmol/L (22-30); Chloride 108 mmol/L (98-107); Glucose 133 mg/dL (74-99); Potassium 4.8 mmol/L (3.5-5.1); Sodium 141 mmol/L (137-145)
[2017-07-26] MEDS: HEPARIN SODIUM,PORCINE 5,000 UNIT/ML 1 ML VIAL SQ SCH ×2 (08:00→17:37)
[2017-07-26] MEDS: MAGNESIUM OXIDE 400 MG TAB PO SCH (08:55)
[2017-07-26] MEDS: SENNOSIDES 8.6 MG TAB PO SCH ×2 (08:55→21:14)
[2017-07-26] MEDS: PANTOPRAZOLE 40 MG TABLET PO SCH (08:55)
[2017-07-26] MEDS: POTASSIUM CHLORIDE ORAL LIQUID 40 MEQ/30 ML CUP PO SCH (08:55)
[2017-07-26] MEDS: MORPHINE SULFATE ER 15 MG TABLET PO SCH ×2 (09:06→21:10)
[2017-07-26] MEDS: cefTRIAXone IN SWFI 1,000 MG/10 ML SYRINGE IVP SCH (09:06)
[2017-07-26] MEDS: TAMOXIFEN 10 MG TAB PO SCH (09:08)
[2017-07-26] MEDS: METOPROLOL TARTRATE 25 MG TAB PO SCH ×2 (09:08→21:14)
[2017-07-26] MEDS: MELOXICAM 7.5 MG TAB PO SCH (09:08)
[2017-07-26] MEDS: MULTIVITAMINS, THERA 1 EACH TAB PO SCH (10:54)
[2017-07-26] MEDS ORDERED: LACTATED RINGERS 1,000 ML IV ONE (12:55)
[2017-07-26] MEDS: ONDANSETRON 4 MG/2 ML VIAL IVP PRN (13:09)
--- NOTE | 2017-07-26 13:16 | ECHOF ---
Referral Reason:Critical Troponins MEASUREMENTS -------- HEIGHT: 165.1 cm WEIGHT: 29.5 kg BP: 144/3 RVIDd: 2.7 cm (< 3.3) IVSd: 0.8 cm (0.6 - 1.1) LVIDd: 4.4 cm (3.9 - 5.3) LVPWd: 0.8 cm (0.6 - 1.1) IVSs: 1.1 cm LVIDs: 3.8 cm LVPWs: 0.7 cm Ao Diam: 3.4 cm (2.0 - 3.7) AV Cusp: 1.9 cm (1.5 - 2.6) LA Diam: 3.9 cm (2.7 - 3.8) MV EXCURSION: 20.130 mm (> 18.000) MV EF SLOPE: 135 mm/s (70 - 150) EPSS: 0.8 cm MV E Joey: 0.68 m/s MV DecT: 217 ms MV A Joey: 0.93 m/s MV E/A Ratio: 0.74 RAP: 5.00 mmHg RVSP: 23.43 mmHg FINDINGS -------- Sinus rhythm. This was a technically adequate study. LV size, wall thickness and systolic function are normal, with an EF greater than 55%. The left sapna tricular size is normal. The right ventricle is normal in size. The left atrial size is normal. The right atrial size is normal. The aortic valve is trileaflet, and appears structurally normal. No aortic stenosis or regurgitation. No mitral regurgitation. Mild tricuspid regurgitation present. There is no evidence of pulmonary hypertension. The right v entricular systolic pressure, as measured by Doppler, is 23.43mmHg. The aortic root size is normal. Echo free space represents a pericardial fat pad. CONCLUSIONS -------- 1. LV size, wall thickness and systolic function are normal, with an EF greater than 55%. 2. The left ventricular size is normal. 3. The aortic valve is trileaflet, and appears structurally normal. No aortic stenosis or regurgitati on. 4. No mitral regurgitation. 5. Mild tricuspid regurgitation present. 6. There is no evidence of pulmonary hypertension. 7. The right ventricular systolic pressure, as measured by Doppler, is 23.43mmHg. 8. The aortic root size is normal. 9. Echo free space represents a pericardial fat pad. NATURAL HISTORY COLLECTIONS CURATOR: Shiela Welch RDCS
[2017-07-26] MEDS: HYDROmorphone 0.5 MG/0.5 ML SYRINGE IVP ONE ×2 (14:15→16:21)
[2017-07-26] MEDS ORDERED: PROPOFOL 10 MG/ML 20 ML VIAL IV ONE (14:20)
[2017-07-26] MEDS ORDERED: HYDROmorphone (PF) 1 MG/ML ONE (14:20)
[2017-07-26] MEDS ORDERED: LIDOCAINE 1% INJ 10MG/ML (20 ML MDV) ONE (14:20)
[2017-07-26] MEDS ORDERED: ROCURONIUM BROMIDE 10 MG/ML 10 ML VIAL IV ONE (14:20)
[2017-07-26] MEDS ORDERED: SUCCINYLCHOLINE CHLORIDE 100 MG/5 ML SYR IV ONE (14:20)
[2017-07-26] MEDS ORDERED: fentaNYL (PF) 50 MCG/ML 2 ML AMP ONE (14:20)
[2017-07-26] MEDS ORDERED: SODIUM CHLORIDE 0.9% 100 ML with ceFAZolin 2,000 MG IV ONE ×2 (14:43)
[2017-07-26] MEDS ORDERED: ceFAZolin 1,000 MG in SODIUM CHLORIDE 0.9% 1,000 ML IRRIGATION ONE ×4 (14:56)
[2017-07-26] MEDS ORDERED: MAGNESIUM HYDROXIDE 2,400 MG/10 ML CUP PO PRN (16:05)
[2017-07-26] MEDS ORDERED: HYDROmorphone 1 MG/ML 1 ML SYRINGE IVP PRN ×3 (16:05)
[2017-07-26] MEDS ORDERED: HYDROmorphone 0.5 MG/0.5 ML SYRINGE IVP ONE ×2 (16:26→16:31)
--- NOTE | 2017-07-26 16:31 | PN ---
PROGRESS NOTE DATE OF SERVICE: 07/26/2017 This 51-year-old woman was admitted with right hip fracture is being slated for surgery today. No chest pain. No palpitations. No fever. A 2D echo with Doppler was done today which showed ejection fraction about 50 to 55%. No chest pain, no palpitation. EXAM: Alert and oriented x3. Pulse 68, blood pressure 130/81, respiration 18, temperature 98.4, pulse ox 97% on room air. HEENT: Conjunctivae normal. NECK: No jugular venous distention. CARDIOVASCULAR: S1, S2. RESPIRATORY: Breath sounds diminished in the bases. No rhonchi. ABDOMEN: Soft. LEGS: Status post fracture. NERVOUS SYSTEM: No focal deficits. LABS: WBC 10.2, hemoglobin 11.2. Troponins are noted. ASSESSMENT: 1. Acute right hip fracture. 2. Discuss with metastasis. 3. History of migraine. 4. Chronic pain syndrome. 5. History of cholecystectomy. 6. Troponin 0.86 indeterminate. 7. Sinus tachycardia on EKG. 8. Increased WBC, improved. RECOMMENDATIONS AND DISCUSSION: This 51-year-old woman who presented with multiple complex medical issues, will monitor the patient closely. Continue the current management and symptomatic treatment. Otherwise at this time we will closely monitor. Patient cleared for surgery with some extra risk. Continue to monitor. Further recommendations to follow. MMODL / IJN: [id number] /
--- NOTE | 2017-07-26 16:34 | XR ---
EXAMINATION TYPE: XR Hip Limited RT DATE OF EXAM: 07/26/2017 CLINICAL HISTORY: Postoperative evaluation TECHNIQUE: Single portable view of the right hip was submitted. FINDINGS: Noted are changes of total hip arthroplasty with femoral and acetabular components appearin g well seated. Alignment is anatomic. Postsurgical soft tissue changes are evident. IMPRESSION: Satisfactory postoperative alignment
[2017-07-26] MEDS: HYDROmorphone 1 MG/ML 1 ML SYRINGE IVP PRN (19:32)
[2017-07-26] MEDS: SENNOSIDES-DOCUSATE SODIUM 1 EACH TAB PO SCH (21:11)
[2017-07-26] MEDS: DEXAMETHASONE 4 MG TAB PO SCH (21:14)
[2017-07-26] MEDS: ceFAZolin IN SWFI 2 GM/20 ML SYRINGE IVP SCH (21:36)
[2017-07-27] MEDS: HEPARIN SODIUM,PORCINE 5,000 UNIT/ML 1 ML VIAL SQ SCH ×3 (00:20→17:29)
[2017-07-27] MEDS: HYDROmorphone 1 MG/ML 1 ML SYRINGE IVP PRN ×5 (01:33→21:00)
--- NOTE | 2017-07-27 07:16 | OP ---
OPERATIVE REPORT DATE OF PROCEDURE: 07/26/2017 PREOPERATIVE DIAGNOSIS: Right hip displaced femoral neck fracture. POSTOPERATIVE DIAGNOSIS: Right hip displaced femoral neck fracture. PROCEDURE: Right hip hemiarthroplasty. SURGEON: Gideon Crawford MD. WEAVER AXMINSTER: CRYSTAL Rodriguez. ANESTHESIA: General endotracheal. ESTIMATED BLOOD LOSS: 100 mL. DRAINS: None. COMPLICATIONS: None apparent. DISPOSITION: Postanesthesia care unit. INDICATIONS: Swati is a very pleasant, 51-year-old female. She has been recently diagnosed with stage IV metastatic breast cancer. She has significant metastasis to her spine. She initially presented to the hospital July 23, 2017. She did require a fairly extensive preoperative workup. She did have increased troponins. Cardiac clearance was obtained by Cardiology Service as well as preoperative clearance by the Medical Service. She has been cleared for surgery finally today and Swati would like to proceed. The risks of the procedure were discussed with her in detail. These risks include, but are not limited to, risk of infection, nerve damage, bleeding, pain and risk of deep vein thrombosis which could lead to fatal pulmonary embolism. Due to her underlying cancer diagnosis, we did discuss her slightly increased risk with deep vein thrombosis. She is also currently on dexamethasone. There is also risk of further metastasis to bone which could require resulted in periprosthetic fracture in the future. All of Swati's questions with regards to the procedure at this time were answered to her satisfaction. An appropriate informed consent was obtained. DESCRIPTION OF THE PROCEDURE: Patient identified in preoperative holding area. Surgical sites marked by both the patient and myself. She is given 2 g of Ancef IV for prophylactic purposes. She was then transferred to the operative suite. She was placed supine on the operative table. General anesthetic was then administered dosed per the anesthesia without apparent complication. She was then placed in the left lateral decubitus position well-padded in preparation for surgery. Great care was taken to pad her legs as well as a well placed axillary role was done as well. Right lower extremity was then prepped and draped in usual sterile fashion. Standard surgical pause undertaken to ensure that we were operating on the correct site, and that appropriate preoperative antibiotics have been given. All staff in the room were in agreement and we proceeded. The outlines of the greater trochanter were then marked with a surgical pen. The planned 10-12 cm incision starting in line with the tip of the greater trochanter and the shaft of the femur was then marked with a surgical pen. The incision was then made with a 10 blade scalpel. Dissection was carried down sharply to the tensor fascia. Hemostasis was achieved with electrocautery. The tensor fascia was then incised in line with the incision. This exposed the underlying trochanteric bursa. The Charnley retractor was then placed. The raphe between the anterior 1/3 and middle third of the gluteus medius muscle tendon was identified. This raphe was then incised with electrocautery. I then performed a hardened-type anterolateral approach to the hip. The anterior abductors as well as the anterior capsule was taken off in a sleeve anteriorly. The fracture was then identified. I utilized the template to lizbet for a freshened femoral neck cut. The femoral neck was then cut with the reciprocating saw. I then removed the [place] femoral head. I utilized a corkscrew to remove the [place] si[place] femoral head. The acetabular cartilage was in good condition. The [place] si[place] femoral head was measured at a 42 mm. A 42 mm trial head was then placed in the acetabulum. There were was a good suction fit in the acetabulum. I then proceeded with preparation of the proximal femur. The leg was very carefully flexed and externally rotated. This gave me good exposure to the proximal femur. The proximal femur was entered with a drip box tender. There was no evidence of any pathologic bone in the proximal femur near the area of the placement of the femoral stem. I then entered the femoral canal with a starting reamer. I then utilized a lateralize to lateralize as much as possible. I then started reaming with a 7 mm reamer. She had a very small canal. I started to get chatter with the 7 mm reamer. I then utilized an 8 mm reamer and had a good chatter at that point. I then proceeded with broaching. I started with a size 7 broach. It was anteverted approximately 10 to 15 degrees and then increased up to a size 8 broach also anteverted 10 to 15 degrees. The 8 broach had an excellent press fit. I then placed a -3 neck and 42 trial head. The hip was reduced. It was very stable throughout a full range of motion. The leg lengths were equal. There was minimal shuck. I decided to proceed with a press fit size 8 Bi-Metric collared stem, a -3 neck and a 42 head. The wound was thoroughly irrigated. A sterile saline solution with antibiotic added via pulse lavage. I then proceeded to impact the stem. It was impacted approximately 10 to 15 degrees of anteversion. It had a very good press fit. I then impacted the -3 neck and 42 monopolar head onto the stem. The hip was again carefully reduced. Again it was taken through a full range of motion and the leg lengths were approximately equal. At this point, no further work was deemed necessary. Again the hip was thoroughly irrigated with sterile saline solution via pulse lavage. The hip abductors and anterior hip capsule were repaired to the greater trochanter with transosseous #5 Ethibond suture. The raphe between the anterior 1/3 and middle 1/3 of the gluteus medius was repaired with 0 Vicryl interrupted suture. The tensor fascia was then closed with a running #2 Quill suture. The subcutaneous tissues were closed with 2-0 Vicryl interrupted suture and the skin was closed with a running 3-0 Quill suture. Dermabond was applied to the incision. Sterile compressive dressings were applied. The patient was placed into a hip abduction brace. All sponge and needle counts were deemed correct prior to closure. The patient tolerated the procedure without apparent complication. She was transferred to the recovery room in stable conditions. MMODL / IJN: [id number] /
[2017-07-27] MEDS: ceFAZolin IN SWFI 2 GM/20 ML SYRINGE IVP SCH (07:19)
[2017-07-27 07:21] LABS: Basophils # (A) 0.1 k/uL (0-0.2); Basophils % (A) 1 %; Eosinophils % (A) 0 %; HCT 34.7 % (34.0-46.0); HGB 10.7 gm/dL (11.4-16.0); Lymphocytes # (A) 1.2 k/uL (1.0-4.8); Lymphocytes % (A) 11 %; MCH 29.5 pg (25.0-35.0); MCHC 30.8 g/dL (31.0-37.0); MCV 95.8 fL (80.0-100.0); Mean Platelet Volume 6.7; Monocytes # (A) 0.6 k/uL (0-1.0); Monocytes % (A) 5 %; Neutrophils # (A) 9.2 k/uL (1.3-7.7); Neutrophils % (A) 82 %; Platelet Count 442 k/uL (150-450); RBC 3.62 m/uL (3.80-5.40); RDW 15.5 % (11.5-15.5); WBC 11.2 k/uL (3.8-10.6)
[2017-07-27 07:42] LABS: Anion Gap 8 mmol/L; Blood Urea Nitrogen 13 mg/dL (7-17); Calcium 8.2 mg/dL (8.4-10.2); Carbon Dioxide 25 mmol/L (22-30); Chloride 104 mmol/L (98-107); Glucose 171 mg/dL (74-99); Potassium 4.6 mmol/L (3.5-5.1); Sodium 137 mmol/L (137-145)
[2017-07-27] MEDS: MELOXICAM 7.5 MG TAB PO SCH (08:16)
[2017-07-27] MEDS: POTASSIUM CHLORIDE ORAL LIQUID 40 MEQ/30 ML CUP PO SCH (08:16)
[2017-07-27] MEDS: PANTOPRAZOLE 40 MG TABLET PO SCH (08:17)
[2017-07-27] MEDS: METOPROLOL TARTRATE 25 MG TAB PO SCH ×2 (08:17→21:20)
[2017-07-27] MEDS: MAGNESIUM OXIDE 400 MG TAB PO SCH (08:17)
[2017-07-27] MEDS: TAMOXIFEN 10 MG TAB PO SCH (08:17)
[2017-07-27] MEDS: MULTIVITAMINS, THERA 1 EACH TAB PO SCH (08:18)
[2017-07-27] MEDS: cefTRIAXone IN SWFI 1,000 MG/10 ML SYRINGE IVP SCH (08:29)
[2017-07-27] MEDS: MORPHINE SULFATE ER 15 MG TABLET PO SCH ×2 (08:29→21:19)
[2017-07-27] MEDS: SENNOSIDES 8.6 MG TAB PO SCH ×2 (08:30→21:20)
--- NOTE | 2017-07-27 10:59 | P.PN ---
Subjective Progress Note Date: 07/27/17 Mrs. Valera is a pleasant 51-year-old female with past medical history significant for breast cancer with metastasis to the bone. She suffered a fall and hip fracture and had right hip hemiarthroplasty yesterday. We are seeing her today as a follow-up for initial consultation regarding elevated troponins. These were felt to be related to supply and demand mismatch not an acute coronary event. She continues to deny chest pain, shortness of breath, palpitations, dizziness or nausea/vomiting. She is tolerating beta sohail therapy that was initiated prior to surgery as well. Objective - Vital Signs Vital signs: Vital Signs Temp 98.2 F 07/27/17 07:00 Pulse 85 07/27/17 07:00 Resp 16 07/27/17 07:00 BP 108/72 07/27/17 07:00 Pulse Ox 97 07/27/17 07:00 Intake & Output 07/26/17 07/27/17 07/27/17 18:59 06:59 18:59 Intake Total 912 Output Total 1125 900 Balance -213 -900 Intake: IV 912 saline flush 10 Output: Urine 1025 900 Uretheral ([place]) 900 900 Estimated Blood Loss 100 Other: Voiding Method Indwelling Catheter Indwelling Catheter - Exam Blood pressure 108/72 with a heart rate of 85 afebrile GENERAL: Well-appearing, well-nourished and in no acute distress. NECK: Supple without JVD or thyromegaly. LUNGS: Breath sounds clear to auscultation bilaterally. Respiration equal and unlabored. No wheezes, rales or rhonchi. HEART: Regular rate and rhythm without murmurs, rubs or gallops. S1 and S2 heard. EXTREMITIES: Bilateral lower extremity non-pitting edema around the ankles. Normal range of motion. No clubbing or cyanosis. Peripheral pulses intact and strong. - Labs CBC & Chem 7: 07/27/17 07:03 07/27/17 07:03 Labs: Abnormal Lab Results - Last 24 Hours (Table) 07/27/17 07/27/17 Range/Units 07: 07:03 WBC 11.2 H (3.8-10.6) k/uL RBC 3.62 L (3.80-5.40) m/uL Hgb 10.7 L (11.4-16.0) gm/dL MCHC 30.8 L (31.0-37.0) g/dL Neutrophils # 9.2 H (1.3-7.7) k/uL Glucose 171 H (74-99) mg/dL Calcium 8.2 L (8.4-10.2) mg/dL Assessment and Plan Assessment: ASSESSMENT 1. Right hip fracture, s/p right hip hemiarthroplasty post-op day #1 2. Mild troponin elevation, secondary to supply-demand mismatch not an acute coronary event 3. Breast cancer with metastasis to bone. PLAN Continue metoprolol at ordered dose. No further cardiac workup needed at this time. We will see the patient as needed. Please feel free to call with further questions or concerns. Nurse Practitioner note has been reviewed, I agree with a documented findings and plan of care. Patient was seen and examined.
[2017-07-27 11:19] LABS: Appearance,Urine Clear (Clear); Bilirubin,Urine Negative (Negative); Blood,Urine Negative (Negative); Color,Urine Dark Yellow; Glucose,Urine (UA) Negative (Negative); Ketones,Urine Trace (Negative); Leukocyte Esterase,Urine Negative (Negative); Mucus,Urine Rare /hpf; Nitrite,Urine Negative (Negative); Protein,Urine 1+ (Negative); RBC,Urine 6 /hpf (0-5); Specific Gravity,Urine 1.031 (1.001-1.035); Squamous Epithelial Cell,Urine <1 /hpf (0-4); Urobilinogen,Urine <2.0 mg/dL (<2.0); WBC,Urine 2 /hpf (0-5)
--- NOTE | 2017-07-27 13:41 | P.PN ---
Subjective Progress Note Date: 07/27/17 Principal diagnosis: Right hip fracture Patient is seen at bedside this am. She is POD #1 from right hip hemiarthroplasty. Her pain is controlled. She denies any new or worsening radicular symptoms of the upper or lower extremities. She denies calf pain, fever, chills, chest pain or shortness of breath.. Objective - Vital Signs Vital signs: Vital Signs Temp 98.2 F 07/27/17 07:00 Pulse 85 07/27/17 07:00 Resp 16 07/27/17 07:00 BP 108/72 07/27/17 07:00 Pulse Ox 97 07/27/17 07:00 Intake & Output 07/26/17 07/27/17 07/27/17 18:59 06:59 18:59 Intake Total 912 Output Total 1125 900 Balance -213 -900 Intake: IV 912 saline flush 10 Output: Urine 1025 900 Uretheral ([place]) 900 900 Estimated Blood Loss 100 Other: Voiding Method Indwelling Catheter Indwelling Catheter - Exam Inspection of the right lower extremity shows a benign surgical wound. No active bleeding or drainage. Calf is soft and nontender. 2+ DP pulses and less than 2 sec cap refill present. NVI with motor and sensation. - Labs CBC & Chem 7: 07/27/17 07:03 07/27/17 07:03 Labs: Abnormal Lab Results - Last 24 Hours (Table) 07/27/17 07/27/17 07/27/17 Range/Units 07:03 07:03 11:00 WBC 11.2 H (3.8-10.6) k/uL RBC 3.62 L (3.80-5.40) m/uL Hgb 10.7 L (11.4-16.0) gm/dL MCHC 30.8 L (31.0-37.0) g/dL Neutrophils # 9.2 H (1.3-7.7) k/uL Glucose 171 H (74-99) mg/dL Calcium 8.2 L (8.4-10.2) mg/dL Urine Protein 1+ H (Negative) Urine Ketones Trace H (Negative) Urine RBC 6 H (0-5) /hpf Urine Mucus Rare H (None) /hpf Assessment and Plan (1) Closed right hip fracture Narrative/Plan: Continue with routine post op orthopedic protocol including pain management, PT , wound care, DVT prophylaxis and medical management. Current Visit: Yes Status: Acute Priority: Medium Code(s): S72.001A - FRACTURE OF UNSP PART OF NECK OF RIGHT FEMUR, INIT SNOMED Code(s): 850087232 Time with Patient: Less than 30
[2017-07-27] MEDS: HYDROcodone/APAP 7.5-325MG 1 EACH TAB PO PRN (17:33)
--- NOTE | 2017-07-27 19:02 | PN ---
PROGRESS NOTE DATE OF SERVICE: 07/27/2017. INTERVAL HISTORY: This is a 51-year-old woman who was admitted after right hip fracture, had undergone right hip hemiarthroplasty by Dr. Crawford. The patient improved significantly. No chest pain. No palpitations. No fever. PHYSICAL EXAM: Alert and oriented x2. Pulse is 85, blood pressure 108/57, respirations 16, temperature 98.4, pulse ox 97% on room air. HEENT: Normocephalic, atraumatic. NECK: Supple. CARDIOVASCULAR: S1 and S2 muffled. LUNGS: Breath sounds diminished at the bases. No rhonchi. No crackles. ABDOMEN: Soft. EXTREMITIES: No edema of the legs. Status post surgery. LYMPH: No nodes in the neck. NERVOUS SYSTEM: No focal deficits. LABS: WBC 11.2, hemoglobin 10.7. UA noted. ASSESSMENT: 1. Acute right hip fracture status post right hip hemiarthroplasty. 2. Breast cancer with metastasis. 3. History of migraines. 4. Chronic pain syndrome. 5. History of cholecystectomy. 6. Troponin 0.86, indeterminate. 7. Some sinus tachycardia on EKG. 8. Increased WBC, improved. RECOMMENDATIONS: Recommend to continue current management. Continue with DVT prophylaxis. Continue with pain medications. Continue to monitor. Continue the rest of the medications. Closely follow with Hematology/Oncology. Guarded prognosis because of multiple complex medical issues. Further recommendations to follow. MMODL / IJN: [id number] /
[2017-07-27] MEDS: SENNOSIDES-DOCUSATE SODIUM 1 EACH TAB PO SCH (21:19)
[2017-07-27] MEDS: DEXAMETHASONE 4 MG TAB PO SCH (21:20)
[2017-07-28] MEDS: HEPARIN SODIUM,PORCINE 5,000 UNIT/ML 1 ML VIAL SQ SCH ×4 (02:05→22:49)
[2017-07-28] MEDS: HYDROcodone/APAP 7.5-325MG 1 EACH TAB PO PRN ×2 (05:12→16:30)
[2017-07-28 08:16] LABS: Basophils # (A) 0.1 k/uL (0-0.2); Basophils % (A) 0 %; Eosinophils % (A) 0 %; HCT 32.8 % (34.0-46.0); HGB 10.2 gm/dL (11.4-16.0); Lymphocytes # (A) 1.3 k/uL (1.0-4.8); Lymphocytes % (A) 10 %; MCH 29.1 pg (25.0-35.0); MCV 93.9 fL (80.0-100.0); Monocytes # (A) 0.5 k/uL (0-1.0); Monocytes % (A) 4 %; Neutrophils # (A) 10.7 k/uL (1.3-7.7); Neutrophils % (A) 84 %; Platelet Count 391 k/uL (150-450); RBC 3.49 m/uL (3.80-5.40); RDW 15.5 % (11.5-15.5); WBC 12.8 k/uL (3.8-10.6)
[2017-07-28 08:37] LABS: Anion Gap 8 mmol/L; Blood Urea Nitrogen 17 mg/dL (7-17); Calcium 8.2 mg/dL (8.4-10.2); Carbon Dioxide 25 mmol/L (22-30); Chloride 104 mmol/L (98-107); Glucose 142 mg/dL (74-99); Potassium 4.7 mmol/L (3.5-5.1); Sodium 137 mmol/L (137-145)
[2017-07-28] MEDS: METOPROLOL TARTRATE 25 MG TAB PO SCH ×2 (10:48→21:49)
[2017-07-28] MEDS: MULTIVITAMINS, THERA 1 EACH TAB PO SCH (10:48)
[2017-07-28] MEDS: POTASSIUM CHLORIDE ORAL LIQUID 40 MEQ/30 ML CUP PO SCH (10:48)
[2017-07-28] MEDS: MORPHINE SULFATE ER 15 MG TABLET PO SCH ×2 (10:49→21:49)
[2017-07-28] MEDS: SENNOSIDES 8.6 MG TAB PO SCH ×2 (10:49→21:49)
[2017-07-28] MEDS: MAGNESIUM OXIDE 400 MG TAB PO SCH (10:49)
[2017-07-28] MEDS: MELOXICAM 7.5 MG TAB PO SCH (10:49)
[2017-07-28] MEDS: PANTOPRAZOLE 40 MG TABLET PO SCH (10:50)
[2017-07-28] MEDS: TAMOXIFEN 10 MG TAB PO SCH (10:50)
[2017-07-28] MEDS: cefTRIAXone IN SWFI 1,000 MG/10 ML SYRINGE IVP SCH (10:50)
[2017-07-28] MEDS: ONDANSETRON 4 MG/2 ML VIAL IVP PRN (16:47)
--- NOTE | 2017-07-28 21:48 | PN ---
PROGRESS NOTE DATE OF SERVICE: 07/28/2017. INTERVAL HISTORY: This 51-year-old woman who was admitted after hip fracture underwent right hip hemiarthroplasty. No chest pain. No palpitations. ECF rehab is being planned at this time. EXAM: Alert and oriented times three. Pulse 82, blood pressure 130/80, respirations 16, temperature 97.2, pulse ox 98% on room air. HEENT conjunctivae normal. NECK: No jugular venous distention. Cardiovascular: S1, S2 muffled. Respiratory: Breath sounds diminished in the bases. No rhonchi. No crackles. Abdomen soft. Legs: Status post surgery. Central nervous system: No focal deficits. LAB STUDIES: WBC 12.2, hemoglobin 10.2. ASSESSMENT: 1. Acute hip fracture status post right hip hemiarthroplasty. 2. Increased WBC possibly reactive. 3. Breast cancer with metastasis. 4. History of migraine. 5. Chronic pain syndrome. 6. History of cholecystectomy. 7. Troponin 0.8 indeterminate. 8. Sinus tachycardia on the EKG. 9. Increased WBC, improved. RECOMMENDATIONS AND DISCUSSION: I recommend to continue current management and symptomatic treatment. Continue the DVT prophylaxis. Continue the incentive spirometry. Continue with pain medications. Closely follow with Orthopedic surgery. Further recommendations to follow. MMODL / IJN: [id number] /
[2017-07-28] MEDS: DEXAMETHASONE 4 MG TAB PO SCH (21:49)
[2017-07-28] MEDS: SENNOSIDES-DOCUSATE SODIUM 1 EACH TAB PO SCH (21:50)
[2017-07-29] MEDS: ONDANSETRON 4 MG/2 ML VIAL IVP PRN (05:32)
[2017-07-29] MEDS: HYDROcodone/APAP 7.5-325MG 1 EACH TAB PO PRN ×3 (05:32→13:20)
[2017-07-29] MEDS ORDERED: HYDROmorphone 2 MG/ML 1 ML SYRINGE IVP PRN ×3 (09:01→09:02)
--- NOTE | 2017-07-29 09:38 | P.PN ---
Subjective Progress Note Date: 07/29/17 This is a 51-year-old female who is status post right hip hemiarthroplasty. This is postoperative day #2. Patient states her pain is well controlled and she has been up and out of bed to the commode or chair several times. Patient denies any new complaints today. Objective - Vital Signs Vital signs: Vital Signs Temp 97.5 F L 07/29/17 07:00 Pulse 81 07/29/17 07:00 Resp 18 07/29/17 07:00 BP 113/76 07/29/17 07:00 Pulse Ox 98 07/29/17 07:00 Intake & Output 07/28/17 07/29/17 07/29/17 18:59 06:59 18:59 Intake Total 310 1200 Balance 310 1200 Intake: IV 10 10 saline flush 10 10 Oral 300 1190 Other: Voiding Method Indwelling Catheter # Voids 1 # Bowel Movements 1 - Exam Vital signs are stable. Patient is in no acute distress and is alert and oriented 3. Calf is soft and nontender. Incision is clean, dry, and intact. Neurovascular status intact. Patient has full foot and ankle motion without pain or difficulty. 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 Continue hip precautions with abductor pillow Continue antocoagulation. Weightbearing as tolerated with a walker Daily dressing changes Likely discharge to rehab in the near future
[2017-07-29] MEDS: METOPROLOL TARTRATE 25 MG TAB PO SCH ×2 (10:17→21:41)
[2017-07-29] MEDS: HEPARIN SODIUM,PORCINE 5,000 UNIT/ML 1 ML VIAL SQ SCH ×3 (10:17→23:39)
[2017-07-29] MEDS: TAMOXIFEN 10 MG TAB PO SCH (10:17)
[2017-07-29] MEDS: MAGNESIUM OXIDE 400 MG TAB PO SCH (10:18)
[2017-07-29] MEDS: POTASSIUM CHLORIDE ORAL LIQUID 40 MEQ/30 ML CUP PO SCH (10:18)
[2017-07-29] MEDS: SENNOSIDES 8.6 MG TAB PO SCH ×2 (10:18→21:41)
[2017-07-29] MEDS: PANTOPRAZOLE 40 MG TABLET PO SCH (10:18)
[2017-07-29] MEDS: MELOXICAM 7.5 MG TAB PO SCH (10:19)
[2017-07-29] MEDS: MORPHINE SULFATE ER 15 MG TABLET PO SCH ×2 (10:28→21:40)
[2017-07-29] MEDS: cefTRIAXone IN SWFI 1,000 MG/10 ML SYRINGE IVP SCH (10:28)
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
[2017-07-29] MEDS: MULTIVITAMINS, THERA 1 EACH TAB PO SCH (13:11)
--- NOTE | 2017-07-29 17:35 | P.PN ---
Subjective Progress Note Date: 07/29/17 Principal diagnosis: right hip fracture, pathologic 2/2 breast cancer Swati Valera is a 51 year old Female with a history of recently diagnosed metastatic invasive ductal cancer of the right breast, ER/W[place]+ and Her2-. She was found to have widespread bony metastasis at the time of diagnosis. She initiated Tamoxifen and was planning to undergo palliative RT to painful metastases involving the left shoulder, T spine and hips. Her treatment was delayed secondary to a positive urine test, and subsequent hospital admission at [facility] in June. She now presents due to recent fall and right femoral neck fracture. She underwent a right hip hemiarthroplasty 07/26/17 , and is doing well post-op. Pathology revealed adenocarcinoma, stains are currently pending. She participated in PT/OT today. She was able to stand with a walker and sit in the chair for 4 hours. She does report persistent left shoulder pain, which is worse when she tries to get up from sitting or shift in bed. She also reports left hip pain which is more bothersome than the right. She says this is worse with weight bearing and moving in the bed. Her back pain she initially reported is not overly bothersome at this time, and she has seemed to benefit from using a back-brace. Objective - Vital Signs Vital signs: Vital Signs Temp 98 F 07/29/17 15:00 Pulse 78 07/29/17 15:00 Resp 18 07/29/17 15:00 BP 118/79 07/29/17 15:00 Pulse Ox 98 07/29/17 15:00 Intake & Output 07/28/17 07/29/17 07/29/17 18:59 06:59 18:59 Intake Total 310 1200 10 Balance 310 1200 10 Weight 75 kg Intake: IV 10 10 10 saline flush 10 10 10 Oral 300 1190 Other: Voiding Method Indwelling Catheter Bedside Commode # Voids 1 # Bowel Movements 1 - Constitutional General appearance: Present: no acute distress, obese - EENT Eyes: Present: EOMI, PERRLA ENT: Present: NA/AT - Neck Neck: Absent: lymphadenopathy - Respiratory Respiratory: bilateral: CTA - Cardiovascular Rhythm: regular - Gastrointestinal General gastrointestinal: Absent: tenderness - Integumentary Integumentary: Absent: calor, cellulitis - Neurologic Neurologic: Present: CNII-XII intact - Musculoskeletal Musculoskeletal: Present: strength equal bilaterally (right hip flexion limited 2/2 recent surgery. 5/5 strength bilateral ankle flex/ext and left knee 5/5. Bilateral UE WNL) - Psychiatric Psychiatric: Present: A&O x's 3, appropriate affect - Labs CBC & Chem 7: 07/28/17 07:56 07/28/17 07:56 Assessment and Plan Plan: 1. Right hip pathologic fracture: I explained to the patient we would likely recommend a short course of palliative radiotherapy to the hip to prevent recurrent bone disease from compromising her prosthesis. She had previously been planning on undergoing at minimum palliative radiotherapy for the left hip secondary to pain and difficulty weight-bearing. 2. Pain from bone metastases: The patient has improved pain control - currently using ER morphine 15 along with Hydrocodone 7.5 as needed. This is better than it was at home. She would benefit from further palliative radiation to the left shoulder and hips - both of which are still bothersome for her. We will attempt to coordinate this with her disposition plans. If she ends up going to [facility] we will coordinate care so that she can receive planned treatments. If she ends up going to [facility], their radiation department should be notified and she may initiate therapy there. Time with Patient: Greater than 30
--- NOTE | 2017-07-29 18:04 | PN ---
PROGRESS NOTE DATE OF SERVICE: 07/29/2017 This 51-year-old woman was admitted with acute right hip fracture, underwent right hip hemiarthroplasty. [facility] rehab in [facility] is being planned. No chest pain. No palpitations. No fever. EXAM: Alert and oriented x3. Pulse 78, blood pressure 118/79, respiration 18, temperature 98 degrees, pulse ox 98% room air. HEENT: Conjunctivae normal. CARDIOVASCULAR: S1, S2. RESPIRATORY: Breath sounds diminished in the bases. No rhonchi, no crackles. ABDOMEN: Soft, status post surgery. NERVOUS SYSTEM: No focal deficits. LAB STUDIES: WBC 12, hemoglobin 10.2. UA possibly urinary tract infection. UA noted. ASSESSMENT: 1. Acute right hip fracture, status post right hip hemiarthroplasty. 2. Increased WBC, possibly reactive. 3. Breast cancer with metastasis. 4. History of migraine. 5. Urinary tract infection unlikely. 6. Chronic pain syndrome. 7. History of cholecystectomy. 8. Troponin 0.8 indeterminate. 9. Sinus tachycardia in EKG. 10.Increased WBC, improved. RECOMMENDATIONS AND DISCUSSION: I recommend to continue current management and symptomatic treatment. Otherwise at this time, I would recommend continue with antibiotics and continue the rest of the medications. Otherwise, prognosis guarded. Further recommendations to follow. MMODL / IJN: [id number] /
[2017-07-29] MEDS: DEXAMETHASONE 4 MG TAB PO SCH (21:41)
[2017-07-29] MEDS: SENNOSIDES-DOCUSATE SODIUM 1 EACH TAB PO SCH (21:41)
[2017-07-30] MEDS: HYDROcodone/APAP 7.5-325MG 1 EACH TAB PO PRN ×3 (00:35→23:26)
[2017-07-30] MEDS: CYCLOBENZAPRINE 5 MG TAB PO PRN (02:32)
--- NOTE | 2017-07-30 09:19 | P.PN ---
Subjective Progress Note Date: 07/30/17 Principal diagnosis: Status post right hip hemiarthroplasty This is a 51 year-old female post right hip hemiarthroplasty. This is post-op day 4. The patient was evaluated at the bedside today. The patient denies nausea, vomiting, abdominal pain, shortness of breath, and chest pain this morning. She states her pain is controlled at this time but did have severe pain last night. The patient has been up with physical therapy. Objective - Vital Signs Vital signs: Vital Signs Temp 97.9 F 07/29/17 22:34 Pulse 93 07/29/17 22:34 Resp 17 07/29/17 22:34 BP 109/53 07/29/17 22:34 Pulse Ox 99 07/29/17 22:34 Intake & Output 07/29/17 07/30/17 07/30/17 18:59 06:59 18:59 Intake Total 10 10 Balance 10 10 Weight 75 kg Intake: IV 10 10 saline flush 10 10 Other: Voiding Method Bedside Commode Bedside Commode # Voids 3 # Bowel Movements 1 - Exam The patient does not appear in acute distress. Alert and orientated x3. Dressing is clean dry and intact. Incision appears fine with no erythema or active drainage. Calf is soft and nontender. Good foot and ankle motion without difficulty. Sensation and circulatory status is intact. 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 Continue pain control 2. Anticoagulation per internal medicine 3. Continue physical therapy and ambulation 4. Anticipate discharge to skilled rehab on Tuesday
[2017-07-30] MEDS: MORPHINE SULFATE ER 15 MG TABLET PO SCH ×2 (09:28→20:28)
[2017-07-30] MEDS: POTASSIUM CHLORIDE ORAL LIQUID 40 MEQ/30 ML CUP PO SCH (09:29)
[2017-07-30] MEDS: SENNOSIDES 8.6 MG TAB PO SCH ×2 (09:29→20:29)
[2017-07-30] MEDS: cefTRIAXone IN SWFI 1,000 MG/10 ML SYRINGE IVP SCH (09:29)
[2017-07-30] MEDS: MAGNESIUM OXIDE 400 MG TAB PO SCH (09:29)
[2017-07-30] MEDS: PANTOPRAZOLE 40 MG TABLET PO SCH (09:30)
[2017-07-30] MEDS: METOPROLOL TARTRATE 25 MG TAB PO SCH ×2 (09:30→20:29)
[2017-07-30] MEDS: MELOXICAM 7.5 MG TAB PO SCH (09:30)
[2017-07-30] MEDS: TAMOXIFEN 10 MG TAB PO SCH (09:31)
[2017-07-30] MEDS: HEPARIN SODIUM,PORCINE 5,000 UNIT/ML 1 ML VIAL SQ SCH ×2 (10:28→17:32)
[2017-07-30] MEDS ORDERED: FUROSEMIDE 40 MG TAB PO STA ×2 (11:01→11:02)
[2017-07-30 11:47] LABS: Anisocytosis Slight; HCT 32.5 % (34.0-46.0); HGB 9.9 gm/dL (11.4-16.0); Hypochromasia Moderate; MCH 29.3 pg (25.0-35.0); MCHC 30.5 g/dL (31.0-37.0); MCV 96.1 fL (80.0-100.0); Macrocytosis Slight; Mean Platelet Volume 7.6; Platelet Count 454 k/uL (150-450); RBC 3.39 m/uL (3.80-5.40); WBC 15.4 k/uL (3.8-10.6)
[2017-07-30 11:55] LABS: ALT 54 U/L (9-52); AST 31 U/L (14-36); Albumin 3.1 g/dL (3.5-5.0); Alkaline Phosphatase 315 U/L (38-126); Anion Gap 9 mmol/L; Blood Urea Nitrogen 11 mg/dL (7-17); Calcium 8.5 mg/dL (8.4-10.2); Carbon Dioxide 27 mmol/L (22-30); Chloride 103 mmol/L (98-107); Glucose 151 mg/dL (74-99); Sodium 139 mmol/L (137-145); Total Bilirubin 0.3 mg/dL (0.2-1.3); Total Protein 5.6 g/dL (6.3-8.2)
[2017-07-30] MEDS: MULTIVITAMINS, THERA 1 EACH TAB PO SCH (12:10)
[2017-07-30] MEDS: DEXAMETHASONE 4 MG TAB PO SCH (20:29)
[2017-07-30] MEDS: SENNOSIDES-DOCUSATE SODIUM 1 EACH TAB PO SCH (20:29)
[2017-07-30] MEDS: ONDANSETRON 4 MG/2 ML VIAL IVP PRN (20:38)
--- NOTE | 2017-07-30 21:08 | PN ---
PROGRESS NOTE DATE OF SERVICE: 07/30/2017 This 51-year-old woman was admitted for acute right hip fracture underwent right hip hemiarthroplasty. Patient also complaining of right knee pain also at this time. Patient also had breast cancer with METS as well. The patient was seen by multiple consultants including Orthopedic surgery and as well as Dr. Arenas from radiation therapy. A short course of palliative treatment to the right hip is recommended from radiation therapy point of view. Dr. Valenzuela is also evaluating the patient for possible transfer to inpatient rehab. No chest pain. No palpitations. No fever. PHYSICAL EXAM: Alert and oriented x3. Pulse is 101. Blood pressure 118/77, respiration 18, temperature is normal. Pulse ox 94% on room air. HEENT: Conjunctivae normal. Oral mucosa moist. Neck is no jugular venous distention. No carotid bruit. No lymph node enlargement. Cardiovascular S1-S2 muffled. Respiratory: Breath sounds diminished in the bases. No rhonchi and no crackles. ABDOMEN: Soft. Nontender. Legs status post right hip surgery. Nervous system: No focal deficits. LABS: WBC 15.5, hemoglobin 9.9. Labs are noted. ASSESSMENT: 1. Acute right hip fracture, possibly pathological status post right hip hemiarthroplasty. 2. Increased WBC possibly reactive. 3. History of breast cancer with metastasis. 4. History of migraine. 5. Urinary tract infection possibly. 6. Chronic pain syndrome. 7. History of cholecystectomy. 8. Troponin 0.8, indeterminate. 9. Sinus tachycardia on EKG. 10.Increased WBC. RECOMMENDATIONS AND DISCUSSION: I recommend to continue current medications. Continue with monitor. Symptomatic treatment. Otherwise at this time I recommend continue follow up with multiple consultants. Orthopedic surgery. PT/OT evaluation. Follow with Case Management, Dr. Valenzuela for possible rehab and follow up with Radiation/Oncology for possible radiation also. Prognosis guarded because of multiple complex medical issues. Further recommendations to follow. MMODL / IJN: [id number] /
[2017-07-31] MEDS: HEPARIN SODIUM,PORCINE 5,000 UNIT/ML 1 ML VIAL SQ SCH ×3 (00:55→16:32)
--- NOTE | 2017-07-31 09:13 | P.PN ---
Subjective Progress Note Date: 07/31/17 Principal diagnosis: Status post right hip hemiarthroplasty This is a 51 year-old female post right hip hemiarthroplasty. This is post-op day 5. The patient was evaluated at the bedside today. The patient denies nausea, vomiting, abdominal pain, shortness of breath, and chest pain this morning. She states her pain is controlled at this time. The patient has been up with physical therapy. Objective - Vital Signs Vital signs: Vital Signs Temp 97.7 F 07/31/17 07:00 Pulse 94 07/31/17 07:00 Resp 20 07/31/17 07:00 BP 132/78 07/31/17 07:00 Pulse Ox 100 07/31/17 07:00 Intake & Output 07/30/17 07/31/17 07/31/17 18:59 06:59 18:59 Intake Total 10 10 Balance 10 10 Intake: IV 10 10 saline flush 10 10 Other: Voiding Method Bedside Commode Bedside Commode # Voids 3 2 # Bowel Movements 1 - Exam The patient does not appear in acute distress. Alert and orientated x3. Dressing is clean dry and intact. Incision appears fine with no erythema or active drainage. Calf is soft and nontender. Good foot and ankle motion without difficulty. Sensation and circulatory status is intact. - Labs CBC & Chem 7: 07/30/17 11:35 07/30/17 11:35 Labs: Abnormal Lab Results - Last 24 Hours (Table) 07/30/17 07/30/17 Range/Units 11:35 11:35 WBC 15.4 H (3.8-10.6) k/uL RBC 3.39 L (3.80-5.40) m/uL Hgb 9.9 L (11.4-16.0) gm/dL Hct 32.5 L (34.0-46.0) % MCHC 30.5 L (31.0-37.0) g/dL RDW 17.0 H (11.5-15.5) % Plt Count 454 H (150-450) k/uL Creatinine 0.50 L (0.52-1.04) mg/dL Glucose 151 H (74-99) mg/dL ALT 54 H (9-52) U/L Alkaline Phosphatase 315 H (38-126) U/L Total Protein 5.6 L (6.3-8.2) g/dL Albumin 3.1 L (3.5-5.0) g/dL Assessment and Plan (1) Status post hip hemiarthroplasty Current Visit: Yes Status: Acute Code(s): Z96.649 - PRESENCE OF UNSPECIFIED ARTIFICIAL HIP JOINT SNOMED Code(s): 419298900 (2) Closed right hip fracture Current Visit: Yes Status: Acute Priority: Medium Code(s): S72.001A - FRACTURE OF UNSP PART OF NECK OF RIGHT FEMUR, INIT SNOMED Code(s): 263991413 (3) 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 Continue pain control 2. Anticoagulation per internal medicine 3. Continue physical therapy and ambulation 4. Anticipate discharge to skilled or inpatient rehab on Tuesday
[2017-07-31] MEDS: SENNOSIDES 8.6 MG TAB PO SCH ×2 (09:55→20:01)
[2017-07-31] MEDS: MORPHINE SULFATE ER 15 MG TABLET PO SCH ×2 (09:55→21:16)
[2017-07-31] MEDS: TAMOXIFEN 10 MG TAB PO SCH (09:55)
[2017-07-31] MEDS: MELOXICAM 7.5 MG TAB PO SCH (09:55)
[2017-07-31] MEDS: POTASSIUM CHLORIDE ORAL LIQUID 40 MEQ/30 ML CUP PO SCH (09:55)
[2017-07-31] MEDS: METOPROLOL TARTRATE 25 MG TAB PO SCH ×2 (09:56→20:01)
[2017-07-31] MEDS: PANTOPRAZOLE 40 MG TABLET PO SCH (09:56)
[2017-07-31] MEDS: MAGNESIUM OXIDE 400 MG TAB PO SCH (09:56)
[2017-07-31] MEDS: cefTRIAXone IN SWFI 1,000 MG/10 ML SYRINGE IVP SCH (09:56)
[2017-07-31 11:33] LABS: Anisocytosis Slight; Basophils % (A) 0 %; Eosinophils % (A) 0 %; HCT 33.6 % (34.0-46.0); HGB 10.3 gm/dL (11.4-16.0); Lymphocytes # (A) 1.8 k/uL (1.0-4.8); Lymphocytes % (A) 13 %; MCH 29.1 pg (25.0-35.0); MCHC 30.6 g/dL (31.0-37.0); MCV 95.2 fL (80.0-100.0); Mean Platelet Volume 6.7; Monocytes # (A) 0.6 k/uL (0-1.0); Monocytes % (A) 4 %; Neutrophils # (A) 11.3 k/uL (1.3-7.7); Neutrophils % (A) 81 %; Platelet Count 491 k/uL (150-450); RBC 3.53 m/uL (3.80-5.40); WBC 13.9 k/uL (3.8-10.6)
[2017-07-31 11:41] LABS: Anion Gap 11 mmol/L; Blood Urea Nitrogen 14 mg/dL (7-17); Calcium 8.1 mg/dL (8.4-10.2); Carbon Dioxide 25 mmol/L (22-30); Chloride 103 mmol/L (98-107); Glucose 165 mg/dL (74-99); Potassium 3.9 mmol/L (3.5-5.1); Sodium 139 mmol/L (137-145)
[2017-07-31] MEDS: HYDROcodone/APAP 7.5-325MG 1 EACH TAB PO PRN ×3 (13:33→19:57)
[2017-07-31] MEDS: MULTIVITAMINS, THERA 1 EACH TAB PO SCH (13:34)
--- NOTE | 2017-07-31 19:33 | PN ---
PROGRESS NOTE DATE OF SERVICE: 07/31/2017 INTERIM HISTORY: This 51-year-old woman who was admitted with right hip fracture had hip hemiarthroplasty. The PT, OT evaluating the patient closely patient. The patient also has been evaluated for radiation therapy at this time. No chest pain. No palpitations. No fever. EXAM: Alert and oriented x2. Pulse is 91, blood pressure 126/74, respiration 18, temperature 98.2, pulse ox 98% room air. HEENT: Conjunctivae normal. Neck: No jugular venous distention. Cardiovascular: S1, S2 muffled. Respiratory: Breath sounds diminished at the bases. No rhonchi and no crackles. Abdomen soft. Legs status surgery. Central nervous system: No focal deficits. LABS: WBC 13.2, hemoglobin is 10.3. Other labs noted./ ASSESSMENT: 1. Acute right hip fracture, possibly pathological status post right hip hemiarthroplasty. 2. Increased WBC possibly reactive. 3. History of breast cancer with metastases. 4. History of migraine. 5. Urinary tract infection possibly. 6. Chronic pain syndrome. 7. History of cholecystectomy. 8. Troponin 0.8, indeterminate. 9. Sinus tachycardia on EKG. 10.Increased WBC. RECOMMENDATIONS AND DISCUSSION: Recommend to continue current management and continue symptomatic treatment. Otherwise monitor closely. Continue the antibiotics. PT/OT evaluation. Guarded prognosis because of multiple complex medical issues. Further recommendations to follow. MMODL / IJN: [id number] /
[2017-07-31] MEDS: DEXAMETHASONE 4 MG TAB PO SCH (20:01)
[2017-07-31] MEDS: SENNOSIDES-DOCUSATE SODIUM 1 EACH TAB PO SCH (21:16)
[2017-08-01] MEDS: HYDROcodone/APAP 7.5-325MG 1 EACH TAB PO PRN ×3 (02:44→19:42)
[2017-08-01] MEDS: HEPARIN SODIUM,PORCINE 5,000 UNIT/ML 1 ML VIAL SQ SCH ×4 (02:44→23:06)
[2017-08-01 08:10] LABS: Anion Gap 7 mmol/L; Blood Urea Nitrogen 12 mg/dL (7-17); Calcium 8.3 mg/dL (8.4-10.2); Carbon Dioxide 28 mmol/L (22-30); Chloride 104 mmol/L (98-107); Glucose 116 mg/dL (74-99); Sodium 139 mmol/L (137-145)
[2017-08-01 08:44] LABS: Anisocytosis Slight; Basophils % (A) 0 %; Eosinophils % (A) 0 %; HCT 29.7 % (34.0-46.0); HGB 9.2 gm/dL (11.4-16.0); Lymphocytes # (A) 1.5 k/uL (1.0-4.8); Lymphocytes % (A) 12 %; MCH 29.4 pg (25.0-35.0); MCHC 30.9 g/dL (31.0-37.0); MCV 95.1 fL (80.0-100.0); Mean Platelet Volume 6.9; Monocytes # (A) 0.5 k/uL (0-1.0); Monocytes % (A) 4 %; Neutrophils # (A) 10.2 k/uL (1.3-7.7); Neutrophils % (A) 83 %; Platelet Count 477 k/uL (150-450); RBC 3.12 m/uL (3.80-5.40); RDW 16.1 % (11.5-15.5); WBC 12.3 k/uL (3.8-10.6)
[2017-08-01] MEDS: TAMOXIFEN 10 MG TAB PO SCH (09:00)
[2017-08-01] MEDS: POTASSIUM CHLORIDE ORAL LIQUID 40 MEQ/30 ML CUP PO SCH (09:01)
[2017-08-01] MEDS: MORPHINE SULFATE ER 15 MG TABLET PO SCH ×2 (09:02→23:05)
[2017-08-01] MEDS: SENNOSIDES 8.6 MG TAB PO SCH ×2 (09:02→23:06)
[2017-08-01] MEDS: cefTRIAXone IN SWFI 1,000 MG/10 ML SYRINGE IVP SCH (09:03)
[2017-08-01] MEDS: PANTOPRAZOLE 40 MG TABLET PO SCH (09:03)
[2017-08-01] MEDS: MAGNESIUM OXIDE 400 MG TAB PO SCH (09:03)
[2017-08-01] MEDS: MELOXICAM 7.5 MG TAB PO SCH (09:03)
[2017-08-01] MEDS: METOPROLOL TARTRATE 25 MG TAB PO SCH ×2 (09:03→23:06)
--- NOTE | 2017-08-01 09:03 | P.DS ---
Providers Date of admission: 07/23/17 15:40 Expected date of discharge: 08/01/17 Attending physician: Gideon Crawford Consults: 07/29/17 10:03 Consult Physician Stat Consulting Provider: Mayo Valenzuela Consult Reason/Comments: [facility] d/c. Do you want consulting provider notified?: Yes 07/23/17 14:34 Consult Physician Stat Consulting Provider: Viviane Hope Consult Reason/Comments: oncology- breast cancer with mets Do you want consulting provider notified?: Yes 07/24/17 08:26 Consult Physician Stat Consulting Provider: Mavis Cline Consult Reason/Comments: pre-op clearance Do you want consulting provider notified?: Yes 07/24/17 13:59 Consult Physician Stat Consulting Provider: Lane Ruvalcaba Consult Reason/Comments: Tropoinin 0.086 and tachycardia and clearance for surgery tomorrow Do you want consulting provider notified?: Yes Primary care physician: Juanito Parnell - Discharge Diagnosis(es) (1) Closed right hip fracture Patient was admitted through the ED on 07/23/18 after a fall resulted in a right hip fracture. She has multiple medical problems including Hx of Breast CA and mets to the spine. She was cleared for surgical intervention and desired to proceed with elective surgery after given informed consent. She underwent a right hip hemiarthroplasty on 07/26/17 which she tolerated well without complication. Postoperative hospital course has remained without complication. On day of discharge she is afebrile, vital signs stable, labs within acceptable ranges, tolerating by mouth meds and diet, voiding without difficulty, positive flatus, denies abdominal pain or calf pain, pain is controlled on oral pain medication and has no new complaints. Wound is benign, neurovascular status is intact, calf is soft and nontender, abdomen soft and nontender. Review of systems is negative for numbness, tingling, fever, chills , chest pain, shortness breath, nausea, vomiting, dizziness, headaches, slurred speech or othe Current Visit: Yes Status: Acute Priority: Medium Procedures: Right Hip hemiarthroplasty Patient Condition at Discharge: Good Plan - Discharge Summary Discharge Rx Participant: Yes New Discharge Prescriptions: No Action SUMAtriptan [Imitrex] 1 spray NASAL DAILY PRN PRN Reason: Migraine Headache EPINEPHrine (Auto Inject) [Epipen] 0.3 mg IM ONCE PRN PRN Reason: Anaphylaxis Cetirizine HCl [Zyrtec] 10 mg PO DAILY PRN PRN Reason: Allergy Symptoms Multivitamins, Thera [Multivitamin (formulary)] 1 tab PO DAILY Potassium 99 mg PO DAILY Methocarbamol [Robaxin] 1,000 mg PO TID PRN PRN Reason: Muscle Spasm Magnesium Oxide [Mag-Ox] 400 mg PO DAILY Omeprazole 40 mg PO DAILY Dexamethasone 4 mg PO HS Acetaminophen-Codeine 300-30mg [Tylenol #3] 1 tab PO Q4H PRN #20 tablet PRN Reason: pain Tamoxifen Citrate 20 mg PO DAILY Celecoxib [CeleBREX] 200 mg PO BID Sennosides [Senna] 8.6 mg PO BID Ondansetron HCl [Zofran] 8 mg PO Q8HR PRN PRN Reason: Nausea Morphine Sulfate ER [Ms Contin] 15 mg PO BID HYDROcodone/APAP 10-325MG [Mcfaddin 10-325] 1 tab PO Q4HR PRN PRN Reason: Pain Discharge Medication List Cetirizine HCl [Zyrtec] 10 mg PO DAILY PRN 07/04/15 [History] EPINEPHrine (Auto Inject) [Epipen] 0.3 mg IM ONCE PRN 07/04/15 [History] SUMAtriptan [Imitrex] 1 spray NASAL DAILY PRN 07/04/15 [History] Magnesium Oxide [Mag-Ox] 400 mg PO DAILY 06/07/17 [History] Methocarbamol [Robaxin] 1,000 mg PO TID PRN 06/07/17 [History] Multivitamins, Thera [Multivitamin (formulary)] 1 tab PO DAILY 06/07/17 [History ] Potassium 99 mg PO DAILY 06/07/17 [History] Dexamethasone 4 mg PO HS 06/24/17 [History] Omeprazole 40 mg PO DAILY 06/24/17 [History] Acetaminophen-Codeine 300-30mg [Tylenol #3] 1 tab PO Q4H PRN #20 tablet [Rx] Tamoxifen Citrate 20 mg PO DAILY 07/16/17 [History] Celecoxib [CeleBREX] 200 mg PO BID 07/23/17 [History] HYDROcodone/APAP 10-325MG [Mcfaddin 10-325] 1 tab PO Q4HR PRN 07/23/17 [History] Morphine Sulfate ER [Ms Contin] 15 mg PO BID 07/23/17 [History] Ondansetron HCl [Zofran] 8 mg PO Q8HR PRN 07/23/17 [History] Sennosides [Senna] 8.6 mg PO BID 07/23/17 [History] Follow up Appointment(s)/Referral(s): Juanito Parnell DO [Primary Care Provider] - 1-2 days Viviane Hope MD [STAFF PHYSICIAN] - 08/15/17 11:30 am
[2017-08-01] MEDS: MULTIVITAMINS, THERA 1 EACH TAB PO SCH (12:31)
[2017-08-01] MEDS: SENNOSIDES-DOCUSATE SODIUM 1 EACH TAB PO SCH (23:05)
[2017-08-01] MEDS: DEXAMETHASONE 4 MG TAB PO SCH (23:06)
[2017-08-02] MEDS: HYDROcodone/APAP 7.5-325MG 1 EACH TAB PO PRN ×3 (04:47→18:05)
[2017-08-02] MEDS: cefTRIAXone IN SWFI 1,000 MG/10 ML SYRINGE IVP SCH (08:06)
[2017-08-02] MEDS: PANTOPRAZOLE 40 MG TABLET PO SCH (08:11)
[2017-08-02] MEDS: MORPHINE SULFATE ER 15 MG TABLET PO SCH ×2 (08:11→20:57)
[2017-08-02] MEDS: SENNOSIDES 8.6 MG TAB PO SCH ×2 (08:11→20:58)
[2017-08-02] MEDS: POTASSIUM CHLORIDE ORAL LIQUID 40 MEQ/30 ML CUP PO SCH (08:11)
[2017-08-02] MEDS: METOPROLOL TARTRATE 25 MG TAB PO SCH ×2 (08:11→20:58)
[2017-08-02] MEDS: MAGNESIUM OXIDE 400 MG TAB PO SCH (08:11)
[2017-08-02] MEDS: HEPARIN SODIUM,PORCINE 5,000 UNIT/ML 1 ML VIAL SQ SCH ×3 (08:11→23:01)
[2017-08-02] MEDS: MELOXICAM 7.5 MG TAB PO SCH (08:12)
[2017-08-02] MEDS: TAMOXIFEN 10 MG TAB PO SCH (08:12)
--- NOTE | 2017-08-02 10:35 | PN ---
PROGRESS NOTE DATE OF SERVICE: 08/01/2017 This 51-year-old woman who was admitted with right hip fracture is being closely monitored. The possibility of rehabilitation is also being considered along with radiation. No chest pain. No palpitations. No fever. EXAM: Alert and oriented times three, pulse 84, blood pressure 120/80, respirations 16, temperature 97.6, pulse ox 94% on room air. HEENT: Conjunctivae normal. Neck: No jugular venous distention. Cardiovascular: S1, S2. Respiratory: Breath sounds diminished in the bases. Scattered rhonchi and crackles. Abdomen is soft, nontender. Nervous system: No focal deficits. Legs are no edema, no swelling. LABS: WBC 12.2, hemoglobin 9.2. ASSESSMENT: 1. Acute right hip fracture possibly pathological status post selective right hemiarthroplasty. 2. Increased WBC possibly reactive. 3. History of breast cancer with metastasis. 4. History of migraine. 5. Urinary tract infection possibly. 6. Chronic pain syndrome. 7. History of cholecystectomy. 8. Troponin 0.8 indeterminate. 9. Sinus tachycardia on the EKG. 10.Increased WBC. RECOMMENDATIONS AND DISCUSSION: Recommend to continue current medications, management and symptomatic treatment. Otherwise, at this time, monitor patient closely. Continue with current medications. Continue with discharge planning. Further recommendations to follow. MMODL / IJN: [id number] /
[2017-08-02] MEDS: MULTIVITAMINS, THERA 1 EACH TAB PO SCH (11:03)
--- NOTE | 2017-08-02 16:40 | PN ---
PROGRESS NOTE DATE OF SERVICE: 08/02/2017. INTERVAL HISTORY: This is a pleasant 51-year-old woman who was admitted after right hip fracture, also was receiving radiation therapy for pathological fracture. The patient slated with inpatient rehab in [facility] by Dr. Valenzuela. No chest pain. No palpitations. No fever. EXAM: Alert and oriented times three. Pulse 76. Blood pressure 105/56. Respirations 16. Temp is 98.8, pulse ox 98% on room air. HEENT: Conjunctivae normal. Neck is no jugular venous distention. Cardiovascular: S1, S2 muffled. Respirations: Breath sounds diminished in the bases. No rhonchi and No crackles. Abdomen is soft, nontender. Legs no edema. No swelling. Central nervous system: No focal deficits. LAB STUDIES: WBC 12.5, hemoglobin 10.2. ASSESSMENT: 1. Acute right hip fracture, possible pathology fracture, status post status right hip hemiarthroplasty. 2. Increased WBC possibly reactive. 3. History of breast cancer with metastases. 4. History of migraine. 5. Urinary tract infection possibly. 6. Chronic pain syndrome. 7. History of cholecystectomy. 8. Troponin 0.09 indeterminate. 9. Sinus tachycardia in the EKG. 10.Increased WBC. RECOMMENDATIONS AND DISCUSSION: Recommend to continue current medications, management and symptomatic treatment. Otherwise, at this time, I will recommend continue with current medications, possible rehab and radiation. Further recommendation to follow. MMODL / IJN: [id number] /
[2017-08-02] MEDS: DEXAMETHASONE 4 MG TAB PO SCH (20:58)
[2017-08-02] MEDS: SENNOSIDES-DOCUSATE SODIUM 1 EACH TAB PO SCH (21:00)
[2017-08-03] MEDS: HYDROcodone/APAP 7.5-325MG 1 EACH TAB PO PRN ×3 (03:56→23:08)
[2017-08-03] MEDS: MORPHINE SULFATE ER 15 MG TABLET PO SCH ×2 (10:18→21:52)
[2017-08-03] MEDS: TAMOXIFEN 10 MG TAB PO SCH (10:19)
[2017-08-03] MEDS: METOPROLOL TARTRATE 25 MG TAB PO SCH ×2 (10:19→21:53)
[2017-08-03] MEDS: MELOXICAM 7.5 MG TAB PO SCH (10:19)
[2017-08-03] MEDS: SENNOSIDES 8.6 MG TAB PO SCH ×2 (10:20→21:53)
[2017-08-03] MEDS: HEPARIN SODIUM,PORCINE 5,000 UNIT/ML 1 ML VIAL SQ SCH ×3 (10:20→23:09)
[2017-08-03] MEDS: PANTOPRAZOLE 40 MG TABLET PO SCH (10:20)
[2017-08-03] MEDS: POTASSIUM CHLORIDE ORAL LIQUID 40 MEQ/30 ML CUP PO SCH (10:20)
[2017-08-03] MEDS: MAGNESIUM OXIDE 400 MG TAB PO SCH (10:20)
[2017-08-03] MEDS: MULTIVITAMINS, THERA 1 EACH TAB PO SCH (12:37)
--- NOTE | 2017-08-03 15:49 | P.PN ---
Subjective Progress Note Date: 08/03/17 Principal diagnosis: Right hip fracture Patient is seen at bedside this am. She is s/p right hip hemiarthroplasty performed 07/26/17. Her pain is controlled. She is awaiting transfer to [facility]/ rehab. She denies any new or worsening radicular symptoms of the upper or lower extremities. She denies calf pain, fever, chills, chest pain or shortness of breath.. Objective - Vital Signs Vital signs: Vital Signs Temp 98.1 F 08/03/17 15:00 Pulse 84 08/03/17 15:00 Resp 16 08/03/17 15:00 BP 123/79 08/03/17 15:00 Pulse Ox 97 08/03/17 15:00 Intake & Output 08/02/17 08/03/17 08/03/17 18:59 06:59 18:59 Output Total 200 Balance -200 Weight 75 kg Output: Urine 200 Other: Voiding Method Toilet Bedside Commode # Voids 4 1 3 # Bowel Movements 1 - Exam Inspection of the right lower extremity shows a benign surgical wound. No active bleeding or drainage. Calf is soft and nontender. 2+ DP pulses and less than 2 sec cap refill present. NVI with motor and sensation. - Constitutional General appearance: Present: no acute distress - Psychiatric Psychiatric: Present: A&O x's 3, appropriate affect, intact judgment & insight - Labs CBC & Chem 7: 08/01/17 07:17 08/01/17 07:17 Assessment and Plan (1) Closed right hip fracture Narrative/Plan: Continue with routine post op orthopedic protocol including pain management, PT , wound care, DVT prophylaxis and medical management. Transfer to [facility]. Current Visit: Yes Status: Acute Priority: Medium Code(s): S72.001A - FRACTURE OF UNSP PART OF NECK OF RIGHT FEMUR, INIT SNOMED Code(s): 190251009 Time with Patient: Less than 30
[2017-08-03] MEDS: DEXAMETHASONE 4 MG TAB PO SCH (21:53)
[2017-08-03] MEDS: SENNOSIDES-DOCUSATE SODIUM 1 EACH TAB PO SCH (21:56)
[2017-08-04] MEDS: HYDROcodone/APAP 7.5-325MG 1 EACH TAB PO PRN ×3 (04:40→18:55)
[2017-08-04] MEDS: HEPARIN SODIUM,PORCINE 5,000 UNIT/ML 1 ML VIAL SQ SCH ×2 (09:48→17:35)
[2017-08-04] MEDS: MELOXICAM 7.5 MG TAB PO SCH (09:48)
[2017-08-04] MEDS: TAMOXIFEN 10 MG TAB PO SCH (09:50)
[2017-08-04] MEDS: POTASSIUM CHLORIDE ORAL LIQUID 40 MEQ/30 ML CUP PO SCH (09:51)
[2017-08-04] MEDS: PANTOPRAZOLE 40 MG TABLET PO SCH (09:51)
[2017-08-04] MEDS: MAGNESIUM OXIDE 400 MG TAB PO SCH (09:51)
[2017-08-04] MEDS: METOPROLOL TARTRATE 25 MG TAB PO SCH ×2 (09:51→21:11)
[2017-08-04] MEDS: SENNOSIDES 8.6 MG TAB PO SCH ×2 (09:51→21:11)
[2017-08-04] MEDS: MORPHINE SULFATE ER 15 MG TABLET PO SCH ×2 (09:56→21:10)
[2017-08-04] MEDS: MULTIVITAMINS, THERA 1 EACH TAB PO SCH (13:23)
--- NOTE | 2017-08-04 15:57 | P.PN ---
Subjective Progress Note Date: 08/03/17 progress note being dictated for Dr. Sagastume interval history: This a 51-year-old female admitted with right hip fracture, status post hip hemiarthroplasty. PT/OTdaily. Also receives radiation therapy. Good diet intake. No nausea or vomiting. Passing flatus and having bowel movements. Pain controlled. Denies lightheadedness dizziness or focal deficits. Denies chest pain, palpitations or increased shortness of breath. Afebrile. Objective - Vital Signs Vital signs: Vital Signs Temp 98.1 F 08/03/17 15:00 Pulse 84 08/03/17 15:00 Resp 16 08/03/17 15:00 BP 123/79 08/03/17 15:00 Pulse Ox 97 08/03/17 15:00 Intake & Output 08/03/17 08/03/17 08/04/17 06:59 18:59 06:59 Output Total 200 Balance -200 Weight 75 kg Output: Urine 200 Other: Voiding Method Toilet Bedside Commode # Voids 1 3 # Bowel Movements 1 - Exam PHYSICAL EXAM: VITAL SIGNS: [as above] GENERAL: sitting up in chair, no acute distress HEENT: Conjunctivae normal. eyes normal. oral mucosa moist NECK: No JVD. No thyroid enlargement. No LNs CARDIOVASCULAR: S1, S2 muffled. No murmur RESPIRATION: Breath sounds diminished in the bases. No rhonchi or crackles. No bronchial breathing. ABDOMEN: Soft, nontender . No guarding. no masses palpable. No ascites, No hepatosplenomegaly.Bowel sounds heard. LEGS: status post surgery PSYCHIATRY: Alert and oriented -3, mood and affect normal. NERVOUS SYSTEM: No focal deficits. - Labs CBC & Chem 7: 08/01/17 07:17 08/01/17 07:17 Assessment and Plan Assessment: 1. Acute right hip fracture, possibly pathological, status post right hip hemiarthroplasty 2. Leukocytosis, possibly reactive 3. History of breast cancer with metastasis, receiving radiation 4.possible acute UTI 5. Chronic pain syndrome 6. Troponin 0.8 indeterminate 7. Sinus tachycardia per EKG Plan: Continue on current medication regime ,monitoring and symptomatic treatment. Anticoagulation and pain management as per orthopedics. PT OT. Discharge planning in progress for her subacute rehab/inpatient rehab pending pre-CERT. Further recommendations to follow. The impression and plan of care has been dictated as directed. : I performed a history and examination of this patient, discussed the same with the dictator. I agree with the dictator's note ,documented as a scribe. Any additional findings or plans will be noted.
--- NOTE | 2017-08-04 15:59 | P.PN ---
Subjective Progress Note Date: 08/04/17 progress note being dictated for Dr. Sagastume interval history: This a 51-year-old female admitted with right hip fracture, status post hip hemiarthroplasty. PT/OTdaily. Also receives radiation therapy. Good diet intake. No nausea or vomiting. Passing flatus and having bowel movements. Pain controlled. Denies lightheadedness dizziness or focal deficits. Denies chest pain, palpitations or increased shortness of breath. Afebrile. 08/04/2017 no overnight events. Awaiting pre-CERT for inpatient/subacute rehab. Good diet intake no nausea vomiting. Positive bowel movement, no diarrhea. PT/OT. Denies lightheadedness dizziness or focal deficits. Denies chest pain, palpitations or shortness of breath. Afebrile.pain controlled. Objective - Vital Signs Vital signs: Vital Signs Temp 97.7 F 08/04/17 15:00 Pulse 93 08/04/17 15:00 Resp 18 08/04/17 15:00 BP 120/55 08/04/17 15:00 Pulse Ox 97 08/04/17 15:00 Intake & Output 08/03/17 08/04/17 08/04/17 18:59 06:59 18:59 Intake Total 250 855 Balance 250 855 Weight 75 kg Intake: Oral 250 855 Other: Voiding Method Toilet Toilet Bedside Commode Bedside Commode # Voids 3 1 # Bowel Movements 1 - Exam PHYSICAL EXAM: VITAL SIGNS: [as above] GENERAL: sitting up in chair, no acute distress HEENT: Conjunctivae normal. eyes normal. oral mucosa moist NECK: No JVD. No thyroid enlargement. No LNs CARDIOVASCULAR: S1, S2 muffled. No murmur RESPIRATION: Breath sounds diminished in the bases. No rhonchi or crackles ABDOMEN: Soft, nontender . No guarding. no masses palpable. Bowel sounds heard. LEGS: status post surgery PSYCHIATRY: Alert and oriented -3, mood and affect normal. NERVOUS SYSTEM: No focal deficits. - Labs CBC & Chem 7: 08/01/17 07:17 08/01/17 07:17 Assessment and Plan Assessment: 1. Acute right hip fracture, possibly pathological, status post right hip hemiarthroplasty 2. Leukocytosis, possibly reactive 3. History of breast cancer with metastasis, receiving radiation 4.possible acute UTI 5. Chronic pain syndrome 6. Troponin 0.8 indeterminate 7. Sinus tachycardia per EKG Plan: Continue on current medication regime ,monitoring and symptomatic treatment. aggressive pulmonary toileting. Anticoagulation and pain management as per orthopedics. PT OT. Discharge planning in progress for her subacute rehab/inpatient rehab pending pre-CERT. Further recommendations to follow. The impression and plan of care has been dictated as directed. : I performed a history and examination of this patient, discussed the same with the dictator. I agree with the dictator's note ,documented as a scribe. Any additional findings or plans will be noted.
--- NOTE | 2017-08-04 16:52 | PN ---
PROGRESS NOTE Swati is postoperative right hip hemiarthroplasty for a right pathologic femoral neck fracture. She is doing quite well. She has been ambulating with physical therapy utilizing a walker. She is resting at the bed when I saw her. She feels as if she is progressing well. She is currently awaiting placement to a subacute rehab facility. PHYSICAL EXAMINATION: On examination, her incision is healing very nicely. There is no drainage from the incision. There is no erythema or fluctuance noted about the incision, either. She has very minimal swelling in the thigh. She has no swelling distal to the knee. She has intact flexion-extension, inversion-eversion of her ankle. She has intact flexion- extension of the toes. She has intact medial, lateral, plantar and first dorsal webspace sensation on her foot and she has 2+ posterior tibial pulse and brisk capillary refill. IMPRESSION: Status post right hip hemiarthroplasty for a pathologic femoral neck fracture. RECOMMENDATION: Swati is doing quite well. We will have her continue with physical therapy. I encouraged her to use the walker at all times. She is currently awaiting placement to a subacute rehab facility. She is undergoing further radiation-type treatment for her metastatic breast cancer as per the oncology service as well. All of Swati's questions were answered to her satisfaction. MMODL / IJN: [id number] /
[2017-08-04] MEDS: DEXAMETHASONE 4 MG TAB PO SCH (21:11)
[2017-08-04] MEDS: SENNOSIDES-DOCUSATE SODIUM 1 EACH TAB PO SCH (21:11)
[2017-08-05] MEDS: HEPARIN SODIUM,PORCINE 5,000 UNIT/ML 1 ML VIAL SQ SCH ×4 (00:48→23:35)
[2017-08-05] MEDS: HYDROcodone/APAP 7.5-325MG 1 EACH TAB PO PRN ×3 (01:19→19:43)
[2017-08-05] MEDS: TAMOXIFEN 10 MG TAB PO SCH (08:38)
[2017-08-05] MEDS: MELOXICAM 7.5 MG TAB PO SCH (08:38)
[2017-08-05] MEDS: MORPHINE SULFATE ER 15 MG TABLET PO SCH ×2 (08:39→20:30)
[2017-08-05] MEDS: METOPROLOL TARTRATE 25 MG TAB PO SCH ×2 (08:40→20:30)
[2017-08-05] MEDS: PANTOPRAZOLE 40 MG TABLET PO SCH (08:40)
[2017-08-05] MEDS: MULTIVITAMINS, THERA 1 EACH TAB PO SCH (08:41)
[2017-08-05] MEDS: MAGNESIUM OXIDE 400 MG TAB PO SCH (08:41)
[2017-08-05] MEDS: SENNOSIDES 8.6 MG TAB PO SCH ×2 (08:41→20:30)
[2017-08-05] MEDS: POTASSIUM CHLORIDE ORAL LIQUID 40 MEQ/30 ML CUP PO SCH (08:41)
[2017-08-05] MEDS: CYCLOBENZAPRINE 5 MG TAB PO PRN (15:44)
[2017-08-05] MEDS ORDERED: HYDROmorphone 0.5 MG/0.5 ML SYRINGE IVP PRN ×2 (16:19)
--- NOTE | 2017-08-05 16:28 | P.PN ---
Subjective Progress Note Date: 08/05/17 progress note being dictated for Dr. Sagastume interval history: This a 51-year-old female admitted with right hip fracture, status post hip hemiarthroplasty. PT/OTdaily. Also receives radiation therapy. Good diet intake. No nausea or vomiting. Passing flatus and having bowel movements. Pain controlled. Denies lightheadedness dizziness or focal deficits. Denies chest pain, palpitations or increased shortness of breath. Afebrile. 08/04/2017 no overnight events. Awaiting pre-CERT for inpatient/subacute rehab. Good diet intake no nausea vomiting. Positive bowel movement, no diarrhea. PT/OT. Denies lightheadedness dizziness or focal deficits. Denies chest pain, palpitations or shortness of breath. Afebrile.pain controlled. 08/05/2017 no overnight events. PT/OT. Denies lightheadedness or focal deficits. Good diet intake. Positive bowel movement. Pain controlled. Afebrile. Objective - Vital Signs Vital signs: Vital Signs Temp 97.5 F L 08/05/17 07:00 Pulse 76 08/05/17 07:00 Resp 16 08/05/17 07:00 BP 115/53 08/05/17 07:00 Pulse Ox 99 08/05/17 07:00 Intake & Output 08/04/17 08/05/17 08/05/17 18:59 06:59 18:59 Intake Total 855 590 Balance 855 590 Weight 75 kg Intake: Oral 855 590 Other: Voiding Method Toilet Toilet Bedside Commode Bedside Commode # Voids 3 3 # Bowel Movements 1 - Exam PHYSICAL EXAM: VITAL SIGNS: [as above] GENERAL: sitting up in chair, no acute distress HEENT: Conjunctivae normal. eyes normal. oral mucosa moist NECK: No JVD. No thyroid enlargement. No LNs CARDIOVASCULAR: S1, S2 muffled. No murmur RESPIRATION: Bilateral bases diminished in the bases. No rhonchi or crackles, no wheezing ABDOMEN: Soft, nontender . No guarding. no masses palpable. Bowel sounds heard. LEGS: status post surgery PSYCHIATRY: Alert and oriented -3, mood and affect normal. NERVOUS SYSTEM: No focal deficits. - Labs CBC & Chem 7: 08/01/17 07:17 08/01/17 07:17 Assessment and Plan Assessment: 1. Acute right hip fracture, possibly pathological, status post right hip hemiarthroplasty 2. Leukocytosis, possibly reactive 3. History of breast cancer with metastasis, receiving radiation 4.possible acute UTI 5. Chronic pain syndrome 6. Troponin 0.8 indeterminate 7. Sinus tachycardia per EKG Plan: Continue on current medication regime ,monitoring and symptomatic treatment. aggressive pulmonary toileting. Anticoagulation and pain management as per orthopedics. PT OT. Discharge planning in progress for her subacute rehab/inpatient rehab pending pre-CERT. The impression and plan of care has been dictated as directed. : I performed a history and examination of this patient, discussed the same with the dictator. I agree with the dictator's note ,documented as a scribe. Any additional findings or plans will be noted.
[2017-08-05] MEDS: DEXAMETHASONE 4 MG TAB PO SCH (20:30)
[2017-08-05] MEDS: SENNOSIDES-DOCUSATE SODIUM 1 EACH TAB PO SCH (20:32)
[2017-08-06] MEDS: CYCLOBENZAPRINE 5 MG TAB PO PRN ×3 (02:40→19:09)
[2017-08-06] MEDS: HYDROcodone/APAP 7.5-325MG 1 EACH TAB PO PRN ×3 (05:29→23:56)
[2017-08-06 07:34] LABS: Anisocytosis Slight; Basophils % (A) 0 %; Eosinophils % (A) 0 %; HCT 28.1 % (34.0-46.0); HGB 8.6 gm/dL (11.4-16.0); Hypochromasia Slight; Lymphocytes # (A) 0.4 k/uL (1.0-4.8); Lymphocytes % (A) 5 %; MCH 29.1 pg (25.0-35.0); MCHC 30.5 g/dL (31.0-37.0); MCV 95.3 fL (80.0-100.0); Macrocytosis Slight; Monocytes # (A) 0.2 k/uL (0-1.0); Monocytes % (A) 2 %; Neutrophils # (A) 7.4 k/uL (1.3-7.7); Neutrophils % (A) 92 %; Platelet Count 469 k/uL (150-450); RBC 2.95 m/uL (3.80-5.40); RDW 17.9 % (11.5-15.5)
[2017-08-06] MEDS: TAMOXIFEN 10 MG TAB PO SCH (09:05)
[2017-08-06] MEDS: POTASSIUM CHLORIDE ORAL LIQUID 40 MEQ/30 ML CUP PO SCH (09:06)
[2017-08-06] MEDS: MORPHINE SULFATE ER 15 MG TABLET PO SCH ×2 (09:06→21:16)
[2017-08-06] MEDS: PANTOPRAZOLE 40 MG TABLET PO SCH (09:06)
[2017-08-06] MEDS: METOPROLOL TARTRATE 25 MG TAB PO SCH ×2 (09:07→21:16)
[2017-08-06] MEDS: MAGNESIUM OXIDE 400 MG TAB PO SCH (09:07)
[2017-08-06] MEDS: MELOXICAM 7.5 MG TAB PO SCH (09:07)
[2017-08-06] MEDS: HEPARIN SODIUM,PORCINE 5,000 UNIT/ML 1 ML VIAL SQ SCH ×3 (09:08→23:53)
--- NOTE | 2017-08-06 10:22 | P.PN ---
Subjective Progress Note Date: 08/06/17 This is a 51-year-old female who is status post right hip hemiarthroplasty. This is postoperative day #8. Patient states her pain is well controlled and she has been up and walking with a walker. Patient does complain of some mild leg spasms around the incision. Objective - Vital Signs Vital signs: Vital Signs Temp 97.1 F L 08/05/17 21:53 Pulse 95 08/06/17 07:00 Resp 18 08/06/17 07:00 BP 120/65 08/06/17 07:00 Pulse Ox 97 08/06/17 07:00 Intake & Output 08/05/17 08/06/17 08/06/17 18:59 06:59 18:59 Other: Voiding Method Toilet Bedside Commode # Voids 3 2 # Bowel Movements 1 - Exam Vital signs are stable. Patient is in no acute distress and is alert and oriented 3. Calf is soft and nontender to palpation. Incision is clean, dry, and intact. Neurovascular status intact. Patient has full foot and ankle motion without pain or difficulty. - Labs CBC & Chem 7: 08/06/17 06:46 08/01/17 07:17 Labs: Abnormal Lab Results - Last 24 Hours (Table) 08/06/17 Range/Units 06:46 RBC 2.95 L (3.80-5.40) m/uL Hgb 8.6 L (11.4-16.0) gm/dL Hct 28.1 L (34.0-46.0) % MCHC 30.5 L (31.0-37.0) g/dL RDW 17.9 H (11.5-15.5) % Plt Count 469 H (150-450) k/uL Lymphocytes # 0.4 L (1.0-4.8) k/uL Assessment and Plan (1) Closed right hip fracture Current Visit: Yes Status: Acute Priority: Medium Code(s): S72.001A - FRACTURE OF UNSP PART OF NECK OF RIGHT FEMUR, INIT SNOMED Code(s): 601064110 (2) Cord compression syndrome Current Visit: No Status: Acute Code(s): G95.20 - UNSPECIFIED CORD COMPRESSION SNOMED Code(s): 20517925 (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 Continue hip precautions with abductor pillow Continue antocoagulation. Weightbearing as tolerated with a walker Daily dressing changes Likely discharge to rehab in the near future
[2017-08-06] MEDS: SENNOSIDES 8.6 MG TAB PO SCH ×2 (12:03→21:16)
[2017-08-06] MEDS: MULTIVITAMINS, THERA 1 EACH TAB PO SCH (12:03)
--- NOTE | 2017-08-06 12:37 | P.PN ---
Subjective his a 51-year-old female admitted with right hip fracture, status post hip hemiarthroplasty. PT/OTdaily. Also receives radiation therapy. Good diet intake. No nausea or vomiting. Passing flatus and having bowel movements. Pain controlled. Denies lightheadedness dizziness or focal deficits. Denies chest pain, palpitations or increased shortness of breath. Afebrile. 08/04/2017 no overnight events. Awaiting pre-CERT for inpatient/subacute rehab. Good diet intake no nausea vomiting. Positive bowel movement, no diarrhea. PT/OT. Denies lightheadedness dizziness or focal deficits. Denies chest pain, palpitations or shortness of breath. Afebrile.pain controlled. 08/05/2017 no overnight events. PT/OT. Denies lightheadedness or focal deficits. Good diet intake. Positive bowel movement. Pain controlled. Afebrile. 08/06/2017 no overnight events patient is awaiting disposition to subacute rehabilitation. Objective - Vital Signs Vital signs: Vital Signs Temp 97.1 F L 08/05/17 21:53 Pulse 95 08/06/17 07:00 Resp 18 08/06/17 07:00 BP 120/65 08/06/17 07:00 Pulse Ox 97 08/06/17 07:00 Intake & Output 08/05/17 08/06/17 08/06/17 18:59 06:59 18:59 Other: Voiding Method Toilet Toilet Bedside Commode Bedside Commode # Voids 3 2 # Bowel Movements 1 - Exam PHYSICAL EXAM: GENERAL: sitting up in chair, no acute distress HEENT: Conjunctivae normal. eyes normal. oral mucosa moist NECK: No JVD. No thyroid enlargement. No LNs CARDIOVASCULAR: S1, S2 muffled. No murmur RESPIRATION: Bilateral bases diminished in the bases. No rhonchi or crackles, no wheezing ABDOMEN: Soft, nontender . No guarding. no masses palpable. Bowel sounds heard. LEGS: status post surgery PSYCHIATRY: Alert and oriented -3, mood and affect normal. NERVOUS SYSTEM: No focal deficits. - Labs CBC & Chem 7: 08/06/17 06:46 08/01/17 07:17 Labs: Abnormal Lab Results - Last 24 Hours (Table) 08/06/17 Range/Units 06:46 RBC 2.95 L (3.80-5.40) m/uL Hgb 8.6 L (11.4-16.0) gm/dL Hct 28.1 L (34.0-46.0) % MCHC 30.5 L (31.0-37.0) g/dL RDW 17.9 H (11.5-15.5) % Plt Count 469 H (150-450) k/uL Lymphocytes # 0.4 L (1.0-4.8) k/uL Assessment and Plan Plan: Assessment and Plan Assessment: 1. Acute right hip fracture, possibly pathological, status post right hip hemiarthroplasty 2. Leukocytosis, possibly reactive 3. History of breast cancer with metastasis, receiving radiation 4.possible acute UTI 5. Chronic pain syndrome 6. Troponin 0.8 indeterminate 7. Sinus tachycardia per EKG Plan: Continue on current medication regime ,monitoring and symptomatic treatment. aggressive pulmonary toileting. Anticoagulation and pain management as per orthopedics. PT OT. Discharge planning in progress for her subacute rehab/inpatient rehab pending pre-CERT.
[2017-08-06] MEDS: DEXAMETHASONE 4 MG TAB PO SCH (21:16)
[2017-08-06] MEDS: SENNOSIDES-DOCUSATE SODIUM 1 EACH TAB PO SCH (21:17)
[2017-08-07] MEDS: CYCLOBENZAPRINE 5 MG TAB PO PRN ×2 (03:56→17:05)
[2017-08-07] MEDS: HYDROcodone/APAP 7.5-325MG 1 EACH TAB PO PRN ×2 (06:19→12:57)
--- NOTE | 2017-08-07 07:42 | P.PN ---
Subjective Progress Note Date: 08/07/17 This is a 51-year-old female who is status post right hip hemiarthroplasty. This is postoperative day #9. Patient states her pain is under control, but she is still having some muscle spasms in the right thigh. Patient denies any new complaints today. Objective - Vital Signs Vital signs: Vital Signs Temp 97.5 F L 08/06/17 22:44 Pulse 83 08/06/17 22:44 Resp 18 08/06/17 22:44 BP 115/57 08/06/17 22:44 Pulse Ox 99 08/06/17 22:44 Intake & Output 08/06/17 08/07/17 08/07/17 18:59 06:59 18:59 Intake Total 1085 200 Balance 1085 200 Intake: Oral 1085 200 Other: Voiding Method Toilet Toilet Bedside Commode Bedside Commode # Voids 1 - Exam Vital signs are stable. Patient is in no acute distress and is alert and oriented 3. Calf is soft and nontender to palpation. Incision is clean, dry, and intact. Neurovascular status intact. Patient has full foot and ankle motion without pain or difficulty. - Labs CBC & Chem 7: 08/06/17 06:46 08/01/17 07:17 Labs: Abnormal Lab Results - Last 24 Hours (Table) 08/06/17 Range/Units 06:46 RBC 2.95 L (3.80-5.40) m/uL Hgb 8.6 L (11.4-16.0) gm/dL Hct 28.1 L (34.0-46.0) % MCHC 30.5 L (31.0-37.0) g/dL RDW 17.9 H (11.5-15.5) % Plt Count 469 H (150-450) k/uL Lymphocytes # 0.4 L (1.0-4.8) k/uL Assessment and Plan (1) Closed right hip fracture Current Visit: Yes Status: Acute Priority: Medium Code(s): S72.001A - FRACTURE OF UNSP PART OF NECK OF RIGHT FEMUR, INIT SNOMED Code(s): 839026484 (2) Cord compression syndrome Current Visit: No Status: Acute Code(s): G95.20 - UNSPECIFIED CORD COMPRESSION SNOMED Code(s): 63489356 (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 Continue hip precautions with abductor pillow Continue antocoagulation. Weightbearing as tolerated with a walker Daily dressing changes Likely discharge to rehab in the near future
[2017-08-07] MEDS: MORPHINE SULFATE ER 15 MG TABLET PO SCH ×2 (08:57→21:54)
[2017-08-07] MEDS: POTASSIUM CHLORIDE ORAL LIQUID 40 MEQ/30 ML CUP PO SCH (08:58)
[2017-08-07] MEDS: MELOXICAM 7.5 MG TAB PO SCH (08:59)
[2017-08-07] MEDS: TAMOXIFEN 10 MG TAB PO SCH (08:59)
[2017-08-07] MEDS: METOPROLOL TARTRATE 25 MG TAB PO SCH ×2 (08:59→21:54)
[2017-08-07] MEDS: SENNOSIDES 8.6 MG TAB PO SCH ×2 (09:00→21:55)
[2017-08-07] MEDS: MAGNESIUM OXIDE 400 MG TAB PO SCH (09:00)
[2017-08-07] MEDS: PANTOPRAZOLE 40 MG TABLET PO SCH (09:00)
[2017-08-07] MEDS: HEPARIN SODIUM,PORCINE 5,000 UNIT/ML 1 ML VIAL SQ SCH ×3 (09:00→23:40)
--- NOTE | 2017-08-07 11:51 | P.PN ---
Subjective his a 51-year-old female admitted with right hip fracture, status post hip hemiarthroplasty. PT/OTdaily. Also receives radiation therapy. Good diet intake. No nausea or vomiting. Passing flatus and having bowel movements. Pain controlled. Denies lightheadedness dizziness or focal deficits. Denies chest pain, palpitations or increased shortness of breath. Afebrile. 08/04/2017 no overnight events. Awaiting pre-CERT for inpatient/subacute rehab. Good diet intake no nausea vomiting. Positive bowel movement, no diarrhea. PT/OT. Denies lightheadedness dizziness or focal deficits. Denies chest pain, palpitations or shortness of breath. Afebrile.pain controlled. 08/05/2017 no overnight events. PT/OT. Denies lightheadedness or focal deficits. Good diet intake. Positive bowel movement. Pain controlled. Afebrile. 08/06/2017 no overnight events patient is awaiting disposition to subacute rehabilitation. 08/07/2017 patient is clinically doing well awaiting to go to rehabilitation Objective - Vital Signs Vital signs: Vital Signs Temp 98.0 F 08/07/17 07:00 Pulse 81 08/07/17 07:00 Resp 18 08/07/17 07:00 BP 126/85 08/07/17 07:00 Pulse Ox 99 08/07/17 07:00 Intake & Output 08/06/17 08/07/17 08/07/17 18:59 06:59 18:59 Intake Total 1085 200 Balance 1085 200 Intake: Oral 1085 200 Other: Voiding Method Toilet Toilet Toilet Bedside Commode Bedside Commode Bedside Commode # Voids 1 - Exam PHYSICAL EXAM: GENERAL: sitting up in chair, no acute distress HEENT: Conjunctivae normal. eyes normal. oral mucosa moist NECK: No JVD. No thyroid enlargement. No LNs CARDIOVASCULAR: S1, S2 muffled. No murmur RESPIRATION: Bilateral bases diminished in the bases. No rhonchi or crackles, no wheezing ABDOMEN: Soft, nontender . No guarding. no masses palpable. Bowel sounds heard. LEGS: status post surgery PSYCHIATRY: Alert and oriented -3, mood and affect normal. NERVOUS SYSTEM: No focal deficits. - Labs CBC & Chem 7: 08/06/17 06:46 08/01/17 07:17 Assessment and Plan Plan: Assessment and Plan Assessment: 1. Acute right hip fracture, possibly pathological, status post right hip hemiarthroplasty 2. Leukocytosis, possibly reactive 3. History of breast cancer with metastasis, receiving radiation 4.possible acute UTI 5. Chronic pain syndrome 6. Troponin 0.8 indeterminate 7. Sinus tachycardia per EKG Plan: Continue on current medication regime ,monitoring and symptomatic treatment. aggressive pulmonary toileting. Anticoagulation and pain management as per orthopedics. PT OT. Discharge planning in progress for her subacute rehab/inpatient rehab pending pre-CERT.
[2017-08-07] MEDS: MULTIVITAMINS, THERA 1 EACH TAB PO SCH (12:58)
[2017-08-07] MEDS: SENNOSIDES-DOCUSATE SODIUM 1 EACH TAB PO SCH (21:54)
[2017-08-07] MEDS: DEXAMETHASONE 4 MG TAB PO SCH (21:55)
[2017-08-08] MEDS: CYCLOBENZAPRINE 5 MG TAB PO PRN (05:49)
[2017-08-08] MEDS: TAMOXIFEN 10 MG TAB PO SCH (08:27)
[2017-08-08] MEDS: POTASSIUM CHLORIDE ORAL LIQUID 40 MEQ/30 ML CUP PO SCH (08:28)
[2017-08-08] MEDS: SENNOSIDES 8.6 MG TAB PO SCH ×2 (08:28→20:09)
[2017-08-08] MEDS: PANTOPRAZOLE 40 MG TABLET PO SCH (08:28)
[2017-08-08] MEDS: MORPHINE SULFATE ER 15 MG TABLET PO SCH ×2 (08:28→20:08)
[2017-08-08] MEDS: MELOXICAM 7.5 MG TAB PO SCH (08:29)
[2017-08-08] MEDS: METOPROLOL TARTRATE 25 MG TAB PO SCH ×2 (08:29→20:09)
[2017-08-08] MEDS: MAGNESIUM OXIDE 400 MG TAB PO SCH (08:29)
[2017-08-08] MEDS: HEPARIN SODIUM,PORCINE 5,000 UNIT/ML 1 ML VIAL SQ SCH ×3 (08:30→23:31)
--- NOTE | 2017-08-08 09:54 | P.PN ---
Subjective Progress Note Date: 08/08/17 Principal diagnosis: Right hip fracture Patient is seen at bedside this am. She is s/p right hip hemiarthroplasty performed 07/26/17. Her pain is controlled. She continues to await transfer to ECF/rehab. She denies any new or worsening radicular symptoms of the upper or lower extremities. She denies calf pain, fever, chills, chest pain or shortness of breath.. Objective - Vital Signs Vital signs: Vital Signs Temp 98.6 F 08/08/17 07:00 Pulse 72 08/08/17 07:00 Resp 16 08/08/17 07:00 BP 125/73 08/08/17 07:00 Pulse Ox 98 08/08/17 07:00 Intake & Output 08/07/17 08/08/17 08/08/17 18:59 06:59 18:59 Intake Total 1080 50 Balance 1080 50 Intake: Oral 1080 50 Other: Voiding Method Toilet Toilet Bedside Commode Bedside Commode # Voids 2 1 - Exam Inspection of the right lower extremity shows a benign surgical wound. No active bleeding or drainage. Calf is soft and nontender. 2+ DP pulses and less than 2 sec cap refill present. NVI with motor and sensation. - Constitutional General appearance: Present: no acute distress - Psychiatric Psychiatric: Present: A&O x's 3, appropriate affect, intact judgment & insight - Labs CBC & Chem 7: 08/06/17 06:46 08/01/17 07:17 Assessment and Plan (1) Closed right hip fracture Narrative/Plan: Continue with routine post op orthopedic protocol including pain management, PT , wound care, DVT prophylaxis and medical management. Transfer to ECF when approved and if ok with IM. . Current Visit: Yes Status: Acute Priority: Medium Code(s): S72.001A - FRACTURE OF UNSP PART OF NECK OF RIGHT FEMUR, INIT SNOMED Code(s): 824106574 Time with Patient: Less than 30
[2017-08-08] MEDS: HYDROcodone/APAP 7.5-325MG 1 EACH TAB PO PRN ×2 (11:14→18:05)
[2017-08-08] MEDS: MULTIVITAMINS, THERA 1 EACH TAB PO SCH (11:15)
[2017-08-08] MEDS: SENNOSIDES-DOCUSATE SODIUM 1 EACH TAB PO SCH (20:08)
[2017-08-08] MEDS: DEXAMETHASONE 4 MG TAB PO SCH (20:09)
[2017-08-09] MEDS: MORPHINE SULFATE ER 15 MG TABLET PO SCH (07:12)
[2017-08-09] MEDS: POTASSIUM CHLORIDE ORAL LIQUID 40 MEQ/30 ML CUP PO SCH (07:12)
[2017-08-09] MEDS: HEPARIN SODIUM,PORCINE 5,000 UNIT/ML 1 ML VIAL SQ SCH (07:13)
[2017-08-09] MEDS: METOPROLOL TARTRATE 25 MG TAB PO SCH (07:13)
[2017-08-09] MEDS: MELOXICAM 7.5 MG TAB PO SCH (07:13)
[2017-08-09] MEDS: PANTOPRAZOLE 40 MG TABLET PO SCH (07:13)
[2017-08-09] MEDS: SENNOSIDES 8.6 MG TAB PO SCH (07:14)
[2017-08-09] MEDS: TAMOXIFEN 10 MG TAB PO SCH (07:14)
[2017-08-09] MEDS: MAGNESIUM OXIDE 400 MG TAB PO SCH (07:14)
[2017-08-09 07:29] VITALS: RESP 17
[2017-08-09 07:48] VITALS: BP 129/82; PULSE 80; TEMP 98
[2017-08-09] MEDS: HYDROcodone/APAP 7.5-325MG 1 EACH TAB PO PRN (10:55)
[2017-08-09] MEDS: MULTIVITAMINS, THERA 1 EACH TAB PO SCH (10:56)
--- NOTE | 2017-08-09 11:08 | P.PN ---
Subjective Progress Note Date: 08/09/17 progress note being dictated for Dr. Sagastume interval history: This a 51-year-old female admitted with right hip fracture, status post hip hemiarthroplasty. PT/OTdaily. Also receives radiation therapy. Good diet intake. No nausea or vomiting. Passing flatus and having bowel movements. Pain controlled. Denies lightheadedness dizziness or focal deficits. Denies chest pain, palpitations or increased shortness of breath. Afebrile. 08/04/2017 no overnight events. Awaiting pre-CERT for inpatient/subacute rehab. Good diet intake no nausea vomiting. Positive bowel movement, no diarrhea. PT/OT. Denies lightheadedness dizziness or focal deficits. Denies chest pain, palpitations or shortness of breath. Afebrile.pain controlled. 08/05/2017 no overnight events. PT/OT. Denies lightheadedness or focal deficits. Good diet intake. Positive bowel movement. Pain controlled. Afebrile. 08/09/17 No overnight events.VSS. Clinically doing well. Awaiting Dc to [facility]. Objective - Vital Signs Vital signs: Vital Signs Temp 98 F 08/09/17 07:00 Pulse 80 08/09/17 07:00 Resp 17 08/09/17 07:23 BP 129/82 08/09/17 07:00 Pulse Ox 97 08/09/17 07:00 Intake & Output 08/08/17 08/09/17 08/09/17 18:59 06:59 18:59 Intake Total 1015 Balance 1015 Intake: Oral 1015 Other: Voiding Method Toilet Toilet Toilet Bedside Commode Bedside Commode Bedside Commode # Voids 2 1 1 - Exam PHYSICAL EXAM: VITAL SIGNS: [as above] GENERAL: sitting up in chair, no acute distress HEENT: Conjunctivae normal. eyes normal. oral mucosa moist NECK: No JVD. No thyroid enlargement. No LNs CARDIOVASCULAR: S1, S2 muffled. No murmur RESPIRATION: Bilateral bases diminished in the bases. No rhonchi or crackles, no wheezing ABDOMEN: Soft, nontender . No guarding. no masses palpable. Bowel sounds heard. LEGS: status post surgery PSYCHIATRY: Alert and oriented -3, mood and affect normal. NERVOUS SYSTEM: No focal deficits. - Labs CBC & Chem 7: 08/06/17 06:46 08/01/17 07:17 Assessment and Plan Assessment: 1. Acute right hip fracture, possibly pathological, status post right hip hemiarthroplasty 2. Leukocytosis, possibly reactive 3. History of breast cancer with metastasis, receiving radiation 4.possible acute UTI 5. Chronic pain syndrome 6. Troponin 0.8 indeterminate 7. Sinus tachycardia per EKG Plan: Continue on current medication regime ,monitoring. Maintain aggressive pulmonary toileting. Anticoagulation and pain management as per orthopedics. PT OT. Discharge planning in progress for her subacute rehab. The impression and plan of care has been dictated as directed. : I performed a history and examination of this patient, discussed the same with the dictator. I agree with the dictator's note ,documented as a scribe. Any additional findings or plans will be noted.
== END 2017-08-09 15:40 | DRG 470 ==
LOC: EC 11:35 → 5ONC 15:40
PROVIDERS: ADMIT Orthopaedic Surgery Sports Medicine; ATTEND Orthopaedic Surgery Sports Medicine
PROC: 0SRR0JA Replacement of Right Hip Joint, Femoral Surface with Synthetic Substitute, Uncemented, Open Approach (ICD-10-PCS; principal; 2017-07-26 08:30)
DX: M84.453A Pathological fracture, unspecified femur, initial encounter for fracture (principal); C79.51 Secondary malignant neoplasm of bone; G82.20 Paraplegia, unspecified; M48.55XA Collapsed vertebra, not elsewhere classified, thoracolumbar region, initial encounter for fracture; E66.9 Obesity, unspecified; N39.0 Urinary tract infection, site not specified; C50.911 Malignant neoplasm of unspecified site of right female breast; G89.4 Chronic pain syndrome; R00.0 Tachycardia, unspecified; W19.XXXA Unspecified fall, initial encounter; G89.3 Neoplasm related pain (acute) (chronic); Z17.0 Estrogen receptor positive status [ER+]; Z79.899 Other long term (current) drug therapy; Z87.891 Personal history of nicotine dependence; Z79.891 Long term (current) use of opiate analgesic; Z79.810 Long term (current) use of selective estrogen receptor modulators (SERMs); Z88.8 Allergy status to other drugs, medicaments and biological substances; Z91.041 Radiographic dye allergy status; Z91.040 Latex allergy status; Z91.011 Allergy to milk products
CPT/HCPCS: 36415; 51702; 71010; 72100; 73501; 73502; 80048; 80053; 81001; 84484; 85025; 85027; 85610; 85730; 88305; 88307; 88311; 88341; 88342; 93005; 93306; 96374; 96375; 99285

== ENCOUNTER 2017-08-29 13:28 | Emergency (ER) | payer OTHER ==
[2017-08-29 13:48] VITALS: BP 125/70; PULSE 91; RESP 20; TEMP 97.5
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
--- NOTE | 2017-08-29 15:06 | XR ---
EXAMINATION TYPE: XR shoulder complete LT DATE OF EXAM: 08/29/2017 COMPARISON: NONE HISTORY: Left shoulder pain TECHNIQUE: Three views are submitted. FINDINGS: The osseous structures are intact. There is no acute fracture or dislocation. Arthropathy of the AC joint. Is abnormal attenuation to the humeral head which can be seen with osteonecrosis or metastases correlate clinically. Could not exclude a destructive process. Deformity of the left lateral seventh rib suspicious for fracture and probable osseous metastases. Similar finding involving the fifth and sixth ribs. IMPRESSION: 1. Abnormal appearance of the humeral head most likely on the basis of metastases. Destructive proces s not excluded. There appears to be a fracture involving the posterior lateral left seventh rib which likely pathologic with adjacent bony lesion.
--- NOTE | 2017-08-29 15:08 | XR ---
EXAMINATION TYPE: XR Hip Bilateral and AP pelvis DATE OF EXAM: 08/29/2017 COMPARISON: NONE HISTORY: Pain TECHNIQUE: A single AP view of the pelvis is obtained. Two views of the right hip are obtained. FINDINGS: There is no acute fracture/dislocation evident in the pelvis. The overlying soft tissue a ppears unremarkable. Abnormal attenuation the bones is compatible with bony metastases. Seen diffusel y throughout all osseous structures. Two views of the hip show postsurgical changes. Sclerosis involving the right SI joint likely the bas is of arthritic change. Calcification pelvis likely vascular. IMPRESSION: 1. Diffuse osseous changes most typical of metastasis. 2. Postsurgical change involving the right hip. If there is high clinical suspicion correlate with CT scan.
[2017-08-29] MEDS ORDERED: ONDANSETRON 4 MG/2 ML VIAL IVP STA (16:10)
[2017-08-29] MEDS ORDERED: HYDROmorphone 4 MG/ML 1 ML SYRINGE IVP STA (16:10)
== END 2017-08-29 16:31 | disposition home or self-care (01) ==
LOC: EC 13:28
DX: S22.39XA Fracture of one rib, unspecified side, initial encounter for closed fracture (principal); M25.512 Pain in left shoulder; M25.551 Pain in right hip; M25.552 Pain in left hip; G89.29 Other chronic pain; Z87.891 Personal history of nicotine dependence; Z79.52 Long term (current) use of systemic steroids; Z79.899 Other long term (current) drug therapy; Z91.018 Allergy to other foods; Z91.041 Radiographic dye allergy status; Z91.040 Latex allergy status; Z91.013 Allergy to seafood; Z91.02 Food additives allergy status; Z85.3 Personal history of malignant neoplasm of breast; Z85.830 Personal history of malignant neoplasm of bone; Z92.3 Personal history of irradiation; W01.0XXA Fall on same level from slipping, tripping and stumbling without subsequent striking against object, initial encounter
CPT/HCPCS: 73030; 73521; 99283; 96374; 96375; J2405; J1170

== ENCOUNTER 2017-09-12 20:54 | Emergency (ER) | payer OTHER ==
[2017-09-12 21:18] VITALS: BP 139/60; PULSE 94; RESP 18; TEMP 97.4
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
--- NOTE | 2017-09-12 22:21 | US ---
EXAMINATION TYPE: US venous doppler duplex LE LT DATE OF EXAM: 09/12/2017 10:06 PM COMPARISON: NONE CLINICAL HISTORY: Pain. Left leg pain. SIDE PERFORMED: TECHNIQUE: The lower extremity deep venous system is examined utilizing real time linear array sonog bobbi with graded compression, doppler sonography and color-flow sonography. VESSELS IMAGED: External Iliac Vein (EIV) Common Femoral Vein Deep Femoral Vein Greater Saphenous Vein * Femoral Vein Popliteal Vein Small Saphenous Vein * Proximal Calf Veins (* superficial vessels) Left Leg: Positive for DVT Popliteal Vein. Positive DVT Left popliteal vein. IMPRESSION: No flow is seen in the popliteal vein consistent with acute deep venous thrombosis.
[2017-09-12] MEDS ORDERED: ENOXAPARIN 80 MG/0.8 ML SYRINGE SQ STA (22:30)
== END 2017-09-12 23:04 | disposition home or self-care (01) ==
LOC: EC 20:54
DX: I82.432 Acute embolism and thrombosis of left popliteal vein (principal); Z85.3 Personal history of malignant neoplasm of breast; Z85.830 Personal history of malignant neoplasm of bone; Z87.891 Personal history of nicotine dependence; Z79.899 Other long term (current) drug therapy; Z91.041 Radiographic dye allergy status; Z91.013 Allergy to seafood; Z91.040 Latex allergy status; Z91.018 Allergy to other foods; Z98.890 Other specified postprocedural states
CPT/HCPCS: 93971; 99283; 96372; J1650

== ENCOUNTER → 2017-12-15 | Outpatient (CLI) | payer OTHER ==
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
== END | disposition home or self-care (01) ==
LOC: RADXRYALE 11:36
PROVIDERS: ATTEND Physician Assistant Medical
DX: M79.605 Pain in left leg (principal)

== ENCOUNTER → 2018-01-23 | Outpatient (CLI) | payer OTHER ==
--- NOTE | 2018-01-23 15:56 | CT ---
EXAMINATION TYPE: CT ChestAbdPelvis wo con DATE OF EXAM: 01/23/2018 COMPARISON: NONE HISTORY: breast cancer metastasized to bone. CT DLP: 1248 mGycm. Automated Exposure Control for Dose Reduction was Utilized. TECHNIQUE: CT scan of the thorax, abdomen and pelvis is performed without IV contrast. FINDINGS: Suspect postop changes, posttreatment changes to the right breast, there is a nodular densi ty present extending to the level of the skin measuring 3 cm just superior to the right nipple, there is skin thickening present, right axillary node with a central metallic density measures 15 mm. LUNGS: Abnormal increased attenuation present in the right lower lobe, bandlike area extends from the right hilar region to the paraspinal location where the soft tissue measures approximately 1 cm x 3. 1 cm. No pleural or pericardial effusion. MEDIASTINUM: There are no greater than 1 cm hilar or mediastinal lymph nodes. No pericardial effusi on is seen. OTHER: No additional significant abnormality is seen. LIVER/GB: Patient is post cholecystectomy. No evident liver mass.. PANCREAS: Atrophic change is present.. SPLEEN: No significant abnormality is seen. ADRENALS: No significant abnormality is seen. KIDNEYS: No significant abnormality is seen. BOWEL: No significant abnormality is seen. GENITAL ORGANS: No gross abnormality seen. LYMPH NODES: No greater than 1cm abdominal or pelvic lymph nodes are appreciated. OSSEOUS STRUCTURES: Postop change noted to the left shoulder. Lytic lucency is present within the cor acoid process on the right, abnormal density is present throughout the skeleton compatible with patie nt's history metastasis. Suspect a nondisplaced fracture of the inferior pubic ramus on the left like ly pathologic. Postop change noted to the right hip. OTHER: No significant additional abnormality is seen. IMPRESSION: Extensive metastatic disease to bone, additional findings above.
== END | disposition home or self-care (01) ==
LOC: RADCTMAIN 14:57
PROVIDERS: ATTEND Internal Medicine Hematology & Oncology
DX: C79.51 Secondary malignant neoplasm of bone (principal); C50.811 Malignant neoplasm of overlapping sites of right female breast; Z91.040 Latex allergy status; Z91.013 Allergy to seafood; Z91.041 Radiographic dye allergy status
CPT/HCPCS: 71250; 74176

== ENCOUNTER 2018-02-10 10:27 | Emergency (ER) | payer OTHER ==
[2018-02-10 11:08] VITALS: RESP 18
[2018-02-10] MEDS ORDERED: KETOROLAC 60 MG/2 ML VIAL IM STA (11:12)
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
--- NOTE | 2018-02-10 11:54 | XR ---
EXAMINATION TYPE: XR knee complete RT DATE OF EXAM: 02/10/2018 CLINICAL HISTORY: Pain from fall injury. History of metastatic breast cancer to bone TECHNIQUE: Three views of the right knee are obtained. COMPARISON: Right femur x-ray 07/23/2017. FINDINGS: There is no acute fracture/dislocation evident in right knee. There is moderate tricompart ment joint space loss. Bone has lucent appearance with scattered sclerotic foci suspicious for metas tatic disease involvement. No significant spurring is seen. The overlying soft tissue appears unremar kable. IMPRESSION: There is no acute fracture or dislocation in the right knee.
--- NOTE | 2018-02-10 11:58 | XR ---
EXAMINATION TYPE: XR chest 2V DATE OF EXAM: 02/10/2018 COMPARISON: CT chest January 23, 2018 HISTORY: Known metastatic breast cancer to bone with pain after recent fall injury TECHNIQUE: Frontal and lateral views of the chest are obtained. FINDINGS: Lung volumes are redemonstrated. There is no focal air space opacity, pleural effusion, or pneumothorax seen. The cardiac silhouette size is within normal limits. Metallic hardware from left shoulder surgery is redemonstrated. There is mottled appearance to the bone consistent with known dif fuse metastatic disease. There are subacute or chronic fractures involving left mid lateral ribs rede monstrated. IMPRESSION: No acute cardiopulmonary process.
[2018-02-10] MEDS ORDERED: ONDANSETRON 4 MG/2 ML VIAL IM STA (12:16)
[2018-02-10 12:38] VITALS: BP 149/76; PULSE 91; TEMP 98
== END 2018-02-10 12:38 | disposition home or self-care (01) ==
LOC: EC 10:27
DX: S22.41XA Multiple fractures of ribs, right side, initial encounter for closed fracture (principal); S83.91XA Sprain of unspecified site of right knee, initial encounter; Z79.82 Long term (current) use of aspirin; Z79.899 Other long term (current) drug therapy; Z91.041 Radiographic dye allergy status; Z91.018 Allergy to other foods; Z91.013 Allergy to seafood; Z91.040 Latex allergy status; Z87.891 Personal history of nicotine dependence; Z85.830 Personal history of malignant neoplasm of bone; Z85.3 Personal history of malignant neoplasm of breast; Z87.81 Personal history of (healed) traumatic fracture; Z86.69 Personal history of other diseases of the nervous system and sense organs; Z98.890 Other specified postprocedural states; W07.XXXA Fall from chair, initial encounter; X50.1XXA Overexertion from prolonged static or awkward postures, initial encounter; Y92.89 Other specified places as the place of occurrence of the external cause
CPT/HCPCS: 73562; 71046; 99283; 96372 ×2; J2405; J1885

== ENCOUNTER → 2018-02-23 | Outpatient (CLI) | payer OTHER ==
[~2018-02-23] MED LIST: LEUPROLIDE ACET 11.25MG SYRGKIT IM NR; LEUPROLIDE ACET 11.25MG SYRGKIT IM ONE; MORPHINE SULFATE 4 MG/ML SYRINGE IVP ONE
[2018-02-23 14:06] VITALS: RESP 16
[2018-02-23 14:35] VITALS: TEMP 98.6
[2018-02-23 15:49] VITALS: BP 124/80; PULSE 88
== END | disposition home or self-care (01) ==
LOC: PROCWHC3 13:44
PROVIDERS: ATTEND Internal Medicine Hematology & Oncology
DX: G89.3 Neoplasm related pain (acute) (chronic) (principal); C50.811 Malignant neoplasm of overlapping sites of right female breast
CPT/HCPCS: 96375; 96402; J2270; J1950

== ENCOUNTER 2018-03-27 15:24 | Inpatient (IN) | payer OTHER ==
[2018-03-27] MEDS ORDERED: SODIUM CHLORIDE 0.9% 1,000 ML IV STA ×3 (16:22→18:40)
[2018-03-27 16:41] LABS: Anisocytosis Slight; Basophils % (A) 0 %; Eosinophils # (A) 0.1 k/uL (0-0.7); Eosinophils % (A) 2 %; HCT 34.2 % (34.0-46.0); HGB 10.6 gm/dL (11.4-16.0); Lymphocytes # (A) 0.4 k/uL (1.0-4.8); Lymphocytes % (A) 11 %; MCHC 30.9 g/dL (31.0-37.0); Macrocytosis Slight; Mean Platelet Volume 6.7; Monocytes # (A) 0.1 k/uL (0-1.0); Monocytes % (A) 3 %; Neutrophils # (A) 3.5 k/uL (1.3-7.7); Neutrophils % (A) 84 %; Platelet Count 344 k/uL (150-450); RBC 3.52 m/uL (3.80-5.40); RDW 18.1 % (11.5-15.5); WBC 4.2 k/uL (3.8-10.6)
[2018-03-27 16:48] LABS: INR 1.1 (<1.2); Partial Thromboplastin Time 27.5 sec (22.0-30.0); Prothrombin Time 10.4 sec (9.0-12.0)
--- NOTE | 2018-03-27 16:50 | ED ---
General Adult HPI - General Chief complaint: Weakness Stated complaint: trouble standing Time Seen by Provider: 03/27/18 16:18 Source: patient, RN notes reviewed, old records reviewed Mode of arrival: ambulatory Limitations: no limitations - History of Present Illness Initial comments: This is a 52-year-old female the ER for evaluation of weakness bilateral lower extremity weakness. Severe. Patient has bilateral leg pain and inability to ambulate. Patient has history of CA. Patient thinks she might have extensive metastasis. Patient's poor strain. Patient states she is he can transfer and move without difficulty. She has severe weakness both legs inability urinate and feels constipated. - Related Data Home Medications Medication Instructions Recorded Confirmed Cetirizine HCl [Zyrtec] 10 mg PO DAILY PRN 07/04/15 03/27/18 EPINEPHrine (Auto Inject) [Epipen] 0.3 mg IM ONCE PRN 07/04/15 03/27/18 Magnesium Oxide [Mag-Ox] 400 mg PO DAILY 06/07/17 03/27/18 Methocarbamol [Robaxin] 1,000 mg PO Q8H PRN 06/07/17 03/27/18 Dexamethasone 2 mg PO HS 06/24/17 03/27/18 Gabapentin [Neurontin] 100 mg PO BID 09/12/17 03/27/18 Tamoxifen Citrate 20 mg PO DAILY 09/12/17 03/27/18 Aspirin 325 mg PO DAILY 02/10/18 03/27/18 Calcium Carb/Vitamin D3/Vit K1 1 tab PO DAILY 02/10/18 03/27/18 [Citracal Soft Chew] Celecoxib [CeleBREX] 200 mg PO BID 02/10/18 03/27/18 Morphine Sulfate ER [Ms Contin] 30 mg PO Q8H 02/10/18 03/27/18 Multivitamins, Thera [Multivitamin 1 tab PO DAILY 02/10/18 03/27/18 (formulary)] Rivaroxaban [Xarelto] 20 mg PO HS 02/10/18 03/27/18 Sennosides-Docusate Sodium 1 tab PO DAILY 02/10/18 03/27/18 [Senokot-S] diphenhydrAMINE [Benadryl] 25 mg PO QID PRN 02/10/18 03/27/18 oxyCODONE-APAP 10-325MG [Percocet 1 tab PO Q4H PRN 03/27/18 03/27/18 10-325 mg] Allergies Allergy/AdvReac Type Severity Reaction Status Date / Time avocado Allergy Anaphylaxis Verified 03/27/18 17:01 Iodinated Contrast- Oral and Allergy Swelling Verified 03/27/18 17:01 IV Dye latex Allergy Rash/Hives/ Verified 03/27/18 17:01 swelling shellfish derived [Shellfish] Allergy Swelling Verified 03/27/18 17:01 wheat Allergy Swelling Verified 03/27/18 17:01 coconut AdvReac Nausea & Verified 03/27/18 17:01 Vomiting & Diarrhea artificial sweetener AdvReac Unknown Unknown Uncoded 03/27/18 15:41 Review of Systems ROS Statement: Those systems with pertinent positive or pertinent negative responses have been documented in the HPI. ROS Other: All systems not noted in ROS Statement are negative. Past Medical History Past Medical History: Cancer Additional Past Medical History / Comment(s): FX to HEAD of RADIUS 05/20/15, HX OF MIGRAINE, CHRONIC PAIN RT KNEE, Thoracic fracture 06/05/17, Sprained Left ankle & Left Shoulder, Bilateral Hip pain. breast CA with mets to bone History of Any Multi-Drug Resistant Organisms: None Reported Past Surgical History: Cholecystectomy, Orthopedic Surgery Additional Past Surgical History / Comment(s): SX RT KNEE 3-4, Right Radius repair Additional Past Anesthesia/Blood Transfusion Reaction / Comment(s): STATES TAKES A LONG TIME TO "GO TO SLEEP" Past Psychological History: No Psychological Hx Reported Smoking Status: Former smoker Past Alcohol Use History: None Reported Past Drug Use History: None Reported - Past Family History Mother Family Medical History: Unable to Obtain Additional Family Medical History / Comment(s): PT ADOPTED General Exam - General Exam Comments Initial Comments: Patient severely weak bilaterally legs Limitations: no limitations General appearance: alert, in no apparent distress Head exam: Present: atraumatic, normocephalic, normal inspection Eye exam: Present: normal appearance, PERRL, EOMI. Absent: scleral icterus, conjunctival injection, periorbital swelling ENT exam: Present: normal exam, mucous membranes moist Neck exam: Present: normal inspection. Absent: tenderness, meningismus, lymphadenopathy Respiratory exam: Present: normal lung sounds bilaterally. Absent: respiratory distress, wheezes, rales, rhonchi, stridor Cardiovascular Exam: Present: regular rate, normal rhythm, normal heart sounds. Absent: systolic murmur, diastolic murmur, rubs, gallop, clicks GI/Abdominal exam: Present: soft, normal bowel sounds. Absent: distended, tenderness, guarding, rebound, rigid Extremities exam: Present: normal inspection, full ROM, normal capillary refill. Absent: tenderness, pedal edema, joint swelling, calf tenderness Back exam: Present: normal inspection Neurological exam: Present: alert, oriented X3, CN II-XII intact Psychiatric exam: Present: normal affect, normal mood Skin exam: Present: warm, dry, intact, normal color. Absent: rash Course Vital Signs 03/27/18 03/27/18 15:37 17:56 Temperature 98.4 F Pulse Rate 120 H 113 H Respiratory 18 20 Rate Blood Pressure 115/70 139/87 O2 Sat by Pulse 97 99 Oximetry EKG Findings - EKG Comments: EKG Findings:: EKG shows sinus tachycardia rate 119, [place] 126, QRS 68, QTc 452 Medical Decision Making - Medical Decision Making 52 female the ER for evaluation presents today for evaluation regarding inability to ambulate inability urinate constipation. Patient significant spinal metastasis from breast CA. Patient be admitted for oncologic and pain control - Lab Data Result diagrams: 03/27/18 16:08 03/27/18 16:08 Lab Results 03/27/18 03/27/18 03/27/18 Range/Units 16:08 16:08 16:08 WBC 4.2 (3.8-10.6) k/uL RBC 3.52 L (3.80-5.40) m/uL Hgb 10.6 L (11.4-16.0) gm/dL Hct 34.2 (34.0-46.0) % MCV 97.0 (80.0-100.0) fL MCH 30.0 (25.0-35.0) pg MCHC 30.9 L (31.0-37.0) g/dL RDW 18.1 H (11.5-15.5) % Plt Count 344 (150-450) k/uL Neutrophils % 84 % Lymphocytes % 11 % Monocytes % 3 % Eosinophils % 2 % Basophils % 0 % Neutrophils # 3.5 (1.3-7.7) k/uL Lymphocytes # 0.4 L (1.0-4.8) k/uL Monocytes # 0.1 (0-1.0) k/uL Eosinophils # 0.1 (0-0.7) k/uL Basophils # 0.0 (0-0.2) k/uL Anisocytosis Slight Macrocytosis Slight PT (9.0-12.0) sec INR (<1.2) APTT (22.0-30.0) sec Sodium 139 (137-145) mmol/L Potassium 3.7 (3.5-5.1) mmol/L Chloride 107 (98-107) mmol/L Carbon Dioxide 23 (22-30) mmol/L Anion Gap 9 mmol/L BUN 6 L (7-17) mg/dL Creatinine 0.70 (0.52-1.04) mg/dL Est GFR (CKD-EPI)AfAm >90 (>60 ml/min/1.73 sqM) Est GFR (CKD-EPI)NonAf >90 (>60 ml/min/1.73 sqM) Glucose 116 H (74-99) mg/dL Plasma Lactic Acid Konstantin (0.7-2.0) mmol/L Calcium 8.9 (8.4-10.2) mg/dL Phosphorus 4.7 H (2.5-4.5) mg/dL Magnesium 2.0 (1.6-2.3) mg/dL Total Bilirubin 0.7 (0.2-1.3) mg/dL AST 41 H (14-36) U/L ALT 31 (9-52) U/L Alkaline Phosphatase 174 H (38-126) U/L Total Creatine Kinase 47 (30-135) U/L CK-MB (CK-2) <0.2 (0.0-2.4) ng/mL CK-MB (CK-2) Rel Index Troponin I <0.012 (0.000-0.034) ng/mL Total Protein 5.9 L (6.3-8.2) g/dL Albumin 3.2 L (3.5-5.0) g/dL TSH 1.970 (0.465-4.680) mIU/L 03/27/18 03/27/18 Range/Units 16:08 16:08 WBC (3.8-10.6) k/uL RBC (3.80-5.40) m/uL Hgb (11.4-16.0) gm/dL Hct (34.0-46.0) % MCV (80.0-100.0) fL MCH (25.0-35.0) pg MCHC (31.0-37.0) g/dL RDW (11.5-15.5) % Plt Count (150-450) k/uL Neutrophils % % Lymphocytes % % Monocytes % % Eosinophils % % Basophils % % Neutrophils # (1.3-7.7) k/uL Lymphocytes # (1.0-4.8) k/uL Monocytes # (0-1.0) k/uL Eosinophils # (0-0.7) k/uL Basophils # (0-0.2) k/uL Anisocytosis Macrocytosis PT 10.4 (9.0-12.0) sec INR 1.1 (<1.2) APTT 27.5 (22.0-30.0) sec Sodium (137-145) mmol/L Potassium (3.5-5.1) mmol/L Chloride (98-107) mmol/L Carbon Dioxide (22-30) mmol/L Anion Gap mmol/L BUN (7-17) mg/dL Creatinine (0.52-1.04) mg/dL Est GFR (CKD-EPI)AfAm (>60 ml/min/1.73 sqM) Est GFR (CKD-EPI)NonAf (>60 ml/min/1.73 sqM) Glucose (74-99) mg/dL Plasma Lactic Acid Konstantin 2.1 H* (0.7-2.0) mmol/L Calcium (8.4-10.2) mg/dL Phosphorus (2.5-4.5) mg/dL Magnesium (1.6-2.3) mg/dL Total Bilirubin (0.2-1.3) mg/dL AST (14-36) U/L ALT (9-52) U/L Alkaline Phosphatase (38-126) U/L Total Creatine Kinase (30-135) U/L CK-MB (CK-2) (0.0-2.4) ng/mL CK-MB (CK-2) Rel Index Troponin I (0.000-0.034) ng/mL Total Protein (6.3-8.2) g/dL Albumin (3.5-5.0) g/dL TSH (0.465-4.680) mIU/L - Radiology Data Radiology results: report reviewed (CT lumbosacral spine shows extensive metastatic disease), image reviewed Disposition Clinical Impression: Metastatic breast cancer, Cord compression syndrome, 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
[2018-03-27 17:04] LABS: ALT 31 U/L (9-52); AST 41 U/L (14-36); Albumin 3.2 g/dL (3.5-5.0); Alkaline Phosphatase 174 U/L (38-126); Anion Gap 9 mmol/L; Blood Urea Nitrogen 6 mg/dL (7-17); Calcium 8.9 mg/dL (8.4-10.2); Carbon Dioxide 23 mmol/L (22-30); Chloride 107 mmol/L (98-107); Creatine Kinase 47 U/L (30-135); Glucose 116 mg/dL (74-99); Phosphorus 4.7 mg/dL (2.5-4.5); Potassium 3.7 mmol/L (3.5-5.1); Sodium 139 mmol/L (137-145); Total Bilirubin 0.7 mg/dL (0.2-1.3); Total Protein 5.9 g/dL (6.3-8.2)
[2018-03-27 17:16] LABS: Creatine Kinase MB <0.2 ng/mL (0.0-2.4); Troponin I <0.012 ng/mL (0.000-0.034)
--- NOTE | 2018-03-27 17:16 | CT ---
EXAMINATION TYPE: CT sacrum wo con DATE OF EXAM: 03/27/2018 COMPARISON: 01/23/2018 HISTORY: History of cancer. difficulty standing CT DLP: 800.2 mGycm Automated exposure control for dose reduction was used. FINDINGS: There is patchy osteosclerosis throughout the visualized pelvic bones. This includes the sacrum and c occyx. Sacral and coccygeal segments have normal alignment. There is no evidence of displaced fractur e. There is 25% compression deformity of L5 vertebral body. Exam is limited slightly by motion. There is no evidence of a pelvic mass. IMPRESSION: EXTENSIVE OSSEOUS METASTATIC DISEASE. MILD COMPRESSION FRACTURE OF L5 WITHOUT CHANGE COMPARED TO OLD CT SCAN. NO ACUTE FRACTURE.
--- NOTE | 2018-03-27 17:19 | CT ---
EXAMINATION TYPE: CT lumbar spine wo con DATE OF EXAM: 03/27/2018 4:58 PM COMPARISON: HISTORY: History of cancer. difficulty standing CT DLP: 800.2 mGycm Automated exposure control for dose reduction was used. Unenhanced CT of the lumbar spine was performed. Bone and soft tissue window settings are submitted as well as coronal and sagittal reconstructions. There is extensive osteolytic and osteoblastic change in the lumbar and sacral vertebra. There is 25% compression deformity of L1 and 40% compression deformity of L5. There is 20% wedging of L3. There i s no evidence of spinal stenosis. There is also osteolytic and blastic change in the iliac bones. IMPRESSION: Multiple lumbar compression fractures. There is progression of L3 fracture compared to old exam. Ther e is mild progression of L1 fracture. Extensive osseous metastatic disease. No evidence of spinal wendy nosis.
--- NOTE | 2018-03-27 17:22 | XR ---
EXAMINATION TYPE: XR chest 2V DATE OF EXAM: 03/27/2018 COMPARISON: 02/10/2018 HISTORY: Chest pain TECHNIQUE: Frontal and lateral views of the chest are obtained. FINDINGS: Heart and mediastinum are normal. Lungs are clear. There is old healed left-sided rib frac tures. Costophrenic angles are clear. There are chest leads.. IMPRESSION: No active cardiopulmonary disease. No change.
[2018-03-27] MEDS ORDERED: diphenhydrAMINE 50 MG/ML 1 ML VIAL IVP PRN (18:27)
[2018-03-27] MEDS ORDERED: FAMOTIDINE 20 MG/2 ML VIAL IV STA (18:27)
[2018-03-27] MEDS ORDERED: MORPHINE SULFATE 4 MG/ML SYRINGE IVP STA (18:27)
[2018-03-27] MEDS ORDERED: diphenhydrAMINE 50 MG/ML 1 ML VIAL IVP STA (18:27)
[2018-03-27] MEDS ORDERED: SODIUM CHLORIDE 0.9% 1,000 ML IV ONE (18:27)
[2018-03-27] MEDS ORDERED: cefTRIAXone IN SWFI 2,000 MG/20 ML SYRINGE IVP STA (18:40)
[2018-03-27 19:21] LABS: Appearance,Urine Clear (Clear); Bilirubin,Urine Negative (Negative); Blood,Urine Small (Negative); Color,Urine Yellow; Glucose,Urine (UA) Negative (Negative); Hyaline Casts,Urine 6 /lpf (0-2); Ketones,Urine Negative (Negative); Leukocyte Esterase,Urine Negative (Negative); Mucus,Urine Occasional /hpf; Nitrite,Urine Negative (Negative); PH, Urine 5.5 (5.0-8.0); Protein,Urine Trace (Negative); RBC,Urine 3 /hpf (0-5); Specific Gravity,Urine 1.017 (1.001-1.035); Squamous Epithelial Cell,Urine <1 /hpf (0-4); WBC,Urine 1 /hpf (0-5)
[2018-03-27 19:29] VITALS: BMI 23.3
[2018-03-27] MEDS ORDERED: LORATADINE 10 MG TAB PO PRN (19:45)
[2018-03-27] MEDS ORDERED: METHOCARBAMOL 500 MG TAB PO PRN (19:45)
[2018-03-27] MEDS ORDERED: EPINEPHrine (PF) 1 MG/ML AMP IM PRN (19:45)
[2018-03-27] MEDS ORDERED: diphenhydrAMINE 25 MG CAP PO PRN (19:45)
[2018-03-27] MEDS: GABAPENTIN 100 MG CAP PO SCH (20:24)
[2018-03-27] MEDS: MORPHINE SULFATE ER 30 MG TABLET PO SCH (20:24)
[2018-03-27] MEDS ORDERED: DEXAMETHASONE 2 MG TAB PO SCH (21:00)
[2018-03-27] MEDS: MORPHINE SULFATE 4 MG/ML SYRINGE IVP PRN (23:26)
[2018-03-28] MEDS: oxyCODONE-APAP 10-325MG 1 EACH TAB PO PRN ×3 (00:11→20:57)
[2018-03-28] MEDS: KETOROLAC 30 MG/ML 1 ML VIAL IVP SCH ×2 (01:05→05:16)
[2018-03-28] MEDS ORDERED: TEMAZEPAM 15 MG CAP PO PRN (01:24)
[2018-03-28] MEDS: MORPHINE SULFATE ER 30 MG TABLET PO SCH ×3 (03:48→20:35)
[2018-03-28] MEDS: GABAPENTIN 100 MG CAP PO SCH ×2 (08:11→20:35)
[2018-03-28] MEDS: CALCIUM CARBONATE 500 MG CHEWABLE PO SCH (08:11)
[2018-03-28] MEDS: ASPIRIN 325 MG TAB PO SCH (08:11)
[2018-03-28] MEDS: MAGNESIUM OXIDE 400 MG TAB PO SCH (08:11)
[2018-03-28] MEDS: TAMOXIFEN 10 MG TAB PO SCH ×2 (08:11→10:36)
[2018-03-28] MEDS ORDERED: ENOXAPARIN 40 MG/0.4 ML SYRINGE SQ SCH (09:00)
[2018-03-28] MEDS ORDERED: MELOXICAM 7.5 MG TAB PO SCH (09:00)
[2018-03-28] MEDS ORDERED: SENNOSIDES-DOCUSATE SODIUM 1 EACH TAB PO SCH (09:00)
[2018-03-28] MEDS ORDERED: FAMOTIDINE 20 MG/2 ML VIAL IV SCH (09:00)
--- NOTE | 2018-03-28 11:38 | P.HPIM ---
History of Present Illness 52-year-old female came in because a of progressive weakness and able to transfer herself reveal she has been going on for last few days. Denied any loss of bowel or bladder continence denied any urinary retention denied any focal weakness. Patient was comparing of severe generalized weakness. Fatigue and lethargy patient is found to have extensive osseous gastritis including multiple compression fractures in the lumbar spine. Patient was started on Decadron patient is already receiving radiation therapy for her breast cancer which is metastatic. Patient's strength in bilateral upper and lower limbs is 4 +/5 and no other focal sensory deficits were appreciated. Patient is also getting an MRI of the lumbar spine. Patient is complaining of musculoskeletal chest pain probably metastatic disease to the rib cage although not evident on the chest x-ray. Patient denied dysuria denied any fever chills denied any cough runny nose. Review of Systems REVIEW OF SYSTEMS: CONSTITUTIONAL: As mentioned in HPI HEENT: No recent visual problems or hearing problems. Denied any sore throat. CARDIOVASCULAR: No chest pain, orthopnea, PND, no palpitations, no syncope. PULMONARY: No shortness of breath, no cough, no hemoptysis. Reproducible chest pain GASTROINTESTINAL: No diarrhea, no nausea, no vomiting, no abdominal pain. Normoactive bowel sounds. NEUROLOGICAL: No headaches, no weakness, no numbness. HEMATOLOGICAL: Denies any bleeding or petechiae. GENITOURINARY: Denies any burning micturition, frequency, or urgency. MUSCULOSKELETAL/RHEUMATOLOGICAL: Denies any joint pain, swelling, or any muscle pain. ENDOCRINE: Denies any polyuria or polydipsia. The rest of the 14-point review of systems is negative. Past Medical History Past Medical History: Cancer Additional Past Medical History / Comment(s): FX to HEAD of RADIUS 05/20/15, HX OF MIGRAINE, CHRONIC PAIN RT KNEE, Thoracic fracture 06/05/17, Sprained Left ankle & Left Shoulder, Bilateral Hip pain. breast CA with mets to bone History of Any Multi-Drug Resistant Organisms: None Reported Past Surgical History: Cholecystectomy, Orthopedic Surgery Additional Past Surgical History / Comment(s): SX RT KNEE 3-4, Right Radius repair Additional Past Anesthesia/Blood Transfusion Reaction / Comment(s): STATES TAKES A LONG TIME TO "GO TO SLEEP" Past Psychological History: No Psychological Hx Reported Smoking Status: Former smoker Past Alcohol Use History: None Reported Past Drug Use History: None Reported - Past Family History Mother Family Medical History: Unable to Obtain Additional Family Medical History / Comment(s): PT ADOPTED Medications and Allergies Home Medications Medication Instructions Recorded Confirmed Type Cetirizine HCl [Zyrtec] 10 mg PO DAILY PRN 07/04/15 03/27/18 History EPINEPHrine (Auto Inject) [Epipen] 0.3 mg IM ONCE PRN 07/04/15 03/27/18 History Magnesium Oxide [Mag-Ox] 400 mg PO DAILY 06/07/17 03/27/18 History Methocarbamol [Robaxin] 1,000 mg PO Q8H PRN 06/07/17 03/27/18 History Dexamethasone 2 mg PO HS 06/24/17 03/27/18 History Gabapentin [Neurontin] 100 mg PO BID 09/12/17 03/27/18 History Tamoxifen Citrate 20 mg PO DAILY 09/12/17 03/27/18 History Aspirin 325 mg PO DAILY 02/10/18 03/27/18 History Calcium Carb/Vitamin D3/Vit K1 1 tab PO DAILY 02/10/18 03/27/18 History [Citracal Soft Chew] Celecoxib [CeleBREX] 200 mg PO BID 02/10/18 03/27/18 History Morphine Sulfate ER [Ms Contin] 30 mg PO Q8H 02/10/18 03/27/18 History Multivitamins, Thera [Multivitamin 1 tab PO DAILY 02/10/18 03/27/18 History (formulary)] Rivaroxaban [Xarelto] 20 mg PO HS 02/10/18 03/27/18 History Sennosides-Docusate Sodium 1 tab PO DAILY 02/10/18 03/27/18 History [Senokot-S] diphenhydrAMINE [Benadryl] 25 mg PO QID PRN 02/10/18 03/27/18 History oxyCODONE-APAP 10-325MG [Percocet 1 tab PO Q4H PRN 03/27/18 03/27/18 History 10-325 mg] Allergies Allergy/AdvReac Type Severity Reaction Status Date / Time avocado Allergy Anaphylaxis Verified 03/27/18 17:01 Iodinated Contrast- Oral and Allergy Swelling Verified 03/27/18 17:01 IV Dye latex Allergy Rash/Hives/ Verified 03/27/18 17:01 swelling shellfish derived [Shellfish] Allergy Swelling Verified 03/27/18 17:01 wheat Allergy Swelling Verified 03/27/18 17:01 coconut AdvReac Nausea & Verified 03/27/18 17:01 Vomiting & Diarrhea artificial sweetener AdvReac Unknown Unknown Uncoded 03/27/18 15:41 Physical Exam Vitals: Vital Signs Temp Pulse Pulse Resp BP BP Pulse Ox 03/28/18 07:31 97.3 F L 102 H 14 102/66 98 03/27/18 21:00 98.8 F 123 H 17 113/66 98 03/27/18 19:36 98.8 F 111 H 17 140/74 100 03/27/18 18:55 117 H 18 151/94 96 03/27/18 17:56 113 H 20 139/87 99 03/27/18 15:37 98.4 F 120 H 18 115/70 97 Intake and Output 03/27/18 03/28/18 03/28/18 22:59 06:59 14:59 Intake Total 100 800 Output Total 1600 Balance 100 800 -1600 Intake: IV 100 800 Sodium Chloride 0.9% 1, 100 800 000 ml @ 100 mls/hr IV . Q10H ONE Rx#:[id number] Output: Urine 1600 Other: Voiding Method Indwelling Catheter Indwelling Catheter Weight 63.503 kg 63.503 kg PHYSICAL EXAMINATION: GENERAL: The patient is alert and oriented x3, not in any acute distress. Well developed, well nourished. As have generalized weakness HEENT: Pupils are round and equally reacting to light. EOMI. No scleral icterus. No conjunctival pallor. Normocephalic, atraumatic. No pharyngeal erythema. No thyromegaly. CARDIOVASCULAR: S1 and S2 present. No murmurs, rubs, or gallops. PULMONARY: Chest is clear to auscultation, no wheezing or crackles. Reproducible chest pain ABDOMEN: Soft, nontender, nondistended, normoactive bowel sounds. No palpable organomegaly. MUSCULOSKELETAL: No joint swelling or deformity. EXTREMITIES: No cyanosis, clubbing, or pedal edema. NEUROLOGICAL: Gross neurological examination did not reveal any focal deficits. 4+/5 strength in upper and lower extremities SKIN: No rashes. Results CBC & Chem 7: 03/27/18 16:08 03/27/18 16:08 Labs: Abnormal Lab Results - Last 24 Hours (Table) 03/27/18 03/27/18 03/27/18 Range/Units 16:08 16:08 16:08 RBC 3.52 L (3.80-5.40) m/uL Hgb 10.6 L (11.4-16.0) gm/dL MCHC 30.9 L (31.0-37.0) g/dL RDW 18.1 H (11.5-15.5) % Lymphocytes # 0.4 L (1.0-4.8) k/uL BUN 6 L (7-17) mg/dL Glucose 116 H (74-99) mg/dL Plasma Lactic Acid Konstantin 2.1 H* (0.7-2.0) mmol/L Phosphorus 4.7 H (2.5-4.5) mg/dL AST 41 H (14-36) U/L Alkaline Phosphatase 174 H (38-126) U/L Total Protein 5.9 L (6.3-8.2) g/dL Albumin 3.2 L (3.5-5.0) g/dL Urine Protein (Negative) Urine Blood (Negative) Hyaline Casts (0-2) /lpf Urine Mucus (None) /hpf 03/27/18 Range/Units 18:30 RBC (3.80-5.40) m/uL Hgb (11.4-16.0) gm/dL MCHC (31.0-37.0) g/dL RDW (11.5-15.5) % Lymphocytes # (1.0-4.8) k/uL BUN (7-17) mg/dL Glucose (74-99) mg/dL Plasma Lactic Acid Konstantin (0.7-2.0) mmol/L Phosphorus (2.5-4.5) mg/dL AST (14-36) U/L Alkaline Phosphatase (38-126) U/L Total Protein (6.3-8.2) g/dL Albumin (3.5-5.0) g/dL Urine Protein Trace H (Negative) Urine Blood Small H (Negative) Hyaline Casts 6 H (0-2) /lpf Urine Mucus Occasional H (None) /hpf Microbiology - Last 24 Hours (Table) 03/27/18 18:30 Urine Culture - Preliminary Urine,Catheterized Thrombosis Risk Factor Assmnt - Choose All That Apply Any of the Below Risk Factors Present?: Yes Each Factor Represents 1 point: Age 41-60 years, Medical pt on bed rest Each Risk Factor Represents 2 Points: Malignancy Thrombosis Risk Factor Assessment Total Risk Factor Score: 4 Thrombosis Risk Factor Assessment Level: Moderate Risk Assessment and Plan Plan: -Increasing weakness and lethargy: Secondary to cancer itself most probably. Patient has extensive osseous metastases including metastases to the lumbosacral spine although patient does not have any other symptoms of chronic compression, MRI is being obtained at this time, patient was started on Decadron. Oncology was consulted. -Asymptomatic bacteriuria will not require any antibiotics. -Metastatic breast cancer: Further management as per oncology -Chest pain and musculoskeletal in nature. -Patient is on anticoagulation probably is being continued as anticoagulation after her recent hip surgery for DVT prophylaxis
[2018-03-28] MEDS: PANTOPRAZOLE 40 MG TABLET PO SCH ×2 (12:23→18:00)
[2018-03-28] MEDS: DEXAMETHASONE SOD PHOSPHATE 4 MG/ML 1 ML VIAL IVP SCH ×3 (12:23→23:19)
[2018-03-28] MEDS: MULTIVITAMINS, THERA 1 EACH TAB PO SCH (13:31)
[2018-03-28] MEDS: RIVAROXABAN 20 MG TAB PO SCH (18:00)
[2018-03-28] MEDS: MORPHINE SULFATE 4 MG/ML SYRINGE IVP PRN ×2 (18:52→23:20)
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
--- NOTE | 2018-03-28 21:14 | MR ---
EXAMINATION TYPE: MR sacrum/coccyx wo con DATE OF EXAM: 03/28/2018 COMPARISON: CT 03/27/2018 HISTORY: concern cord compression TECHNIQUE: Standard multiplanar, multisequence MRI departmental protocol, utilizing intravenous Gadav ist 6.5 ml. FINDINGS: There is patient motion artifact on all sequences. Extensive osseous metastatic disease is evident with prominent heterogeneous T2 prolongation througho ut the visualized bone marrow. There is focal bone destruction of the mid sacrum posteriorly, centered just right of midline. This l esion measures approximately 2.5 cm mean diameter and is consistent with neoplasm, with correlate on axial CT table location to 225-243. On both the MR and CT the neoplastic mass is centered on the dors um of the sacrum, just right of midline, with an intraspinal component. Prominent metallic artifact emanates from the right hip prosthesis. IMPRESSION: 2.5 CM MEAN DIAMETER SOFT TISSUE MASS, CONSISTENT WITH OSSEOUS METASTATIC DEPOSIT INVOLVING THE MID S ACRUM POSTERIORLY JUST RIGHT OF MIDLINE.
[2018-03-29] MEDS: oxyCODONE-APAP 10-325MG 1 EACH TAB PO PRN ×2 (02:41→05:49)
[2018-03-29] MEDS: MORPHINE SULFATE ER 30 MG TABLET PO SCH ×3 (03:59→22:15)
[2018-03-29] MEDS: MORPHINE SULFATE 4 MG/ML SYRINGE IVP PRN ×3 (04:03→22:58)
[2018-03-29] MEDS: DEXAMETHASONE SOD PHOSPHATE 4 MG/ML 1 ML VIAL IVP SCH ×4 (05:51→23:00)
[2018-03-29] MEDS ORDERED: LORazepam 2 MG/ML INJ IV PRN (08:13)
[2018-03-29] MEDS: ASPIRIN 325 MG TAB PO SCH (08:30)
[2018-03-29] MEDS: SENNOSIDES-DOCUSATE SODIUM 1 EACH TAB PO SCH ×4 (08:30→22:18)
[2018-03-29] MEDS: MAGNESIUM OXIDE 400 MG TAB PO SCH (08:30)
[2018-03-29] MEDS: GABAPENTIN 100 MG CAP PO SCH ×2 (08:31→22:12)
[2018-03-29] MEDS: ANASTROZOLE 1 MG TAB PO SCH (08:31)
[2018-03-29] MEDS: PANTOPRAZOLE 40 MG TABLET PO SCH ×2 (08:31→17:16)
[2018-03-29 08:32] LABS: ALT 26 U/L (9-52); AST 27 U/L (14-36); Albumin 2.8 g/dL (3.5-5.0); Alkaline Phosphatase 138 U/L (38-126); Anion Gap 9 mmol/L; Blood Urea Nitrogen 12 mg/dL (7-17); Calcium 8.3 mg/dL (8.4-10.2); Carbon Dioxide 21 mmol/L (22-30); Chloride 110 mmol/L (98-107); Glucose 137 mg/dL (74-99); Potassium 4.4 mmol/L (3.5-5.1); Sodium 140 mmol/L (137-145); Total Bilirubin 0.2 mg/dL (0.2-1.3); Total Protein 5.3 g/dL (6.3-8.2)
[2018-03-29 08:41] LABS: Anisocytosis Slight; Basophils % (A) 0 %; Eosinophils % (A) 0 %; HCT 29.3 % (34.0-46.0); HGB 8.9 gm/dL (11.4-16.0); Hypochromasia Slight; Lymphocytes # (A) 0.2 k/uL (1.0-4.8); Lymphocytes % (A) 8 %; MCH 30.1 pg (25.0-35.0); MCHC 30.4 g/dL (31.0-37.0); MCV 99.1 fL (80.0-100.0); Macrocytosis Slight; Mean Platelet Volume 6.7; Monocytes # (A) 0.1 k/uL (0-1.0); Monocytes % (A) 3 %; Neutrophils # (A) 2.4 k/uL (1.3-7.7); Neutrophils % (A) 88 %; Platelet Count 331 k/uL (150-450); RBC 2.95 m/uL (3.80-5.40); RDW 17.9 % (11.5-15.5); WBC 2.8 k/uL (3.8-10.6)
[2018-03-29] MEDS: CALCIUM CARBONATE 500 MG CHEWABLE PO SCH (10:51)
[2018-03-29] MEDS: MULTIVITAMINS, THERA 1 EACH TAB PO SCH (12:24)
--- NOTE | 2018-03-29 15:46 | P.PN ---
Subjective 52-year-old female came in with progressive weakness of bilateral lower limbs and patient has significant the spinal metastasis upper breast cancer. Patient him come symptoms of weakness and intermittent with improved with Decadron patient underwent lumbosacral MRI which did not show any significant cord compression or cauda equina. Patient will undergo thoracic MRI today continue his steroids. Patient is complaining of sore throat secondary to acid reflux patient is already on Protonix twice a day which will be continued and patient was asked to elevate the head and. Patient almost has normal strength in bilateral lower limbs and upper limbs today. Patient will undergo radiation therapy as well Constitutional: Denied any fatigue denied any fever. Cardio vascular: denied any chest pain, palpitations Gastrointestinal denied any nausea vomiting Pulmonary: Denied any shortness of breath cough Neurologic denied any new focal deficits Objective - Vital Signs Vital signs: Vital Signs Temp 97.4 F L 03/29/18 12:48 Pulse 100 03/29/18 12:48 Resp 20 03/29/18 12:48 BP 125/69 03/29/18 12:48 Pulse Ox 96 03/29/18 12:48 Intake & Output 03/28/18 03/29/18 03/29/18 18:59 06:59 18:59 Intake Total 590 160 Output Total 1800 Balance -1800 590 160 Intake: IV 160 0.9 160 Oral 590 Output: Urine 1800 Uretheral (Arias) 200 Other: Voiding Method Bedside Commode Toilet Toilet Bedside Commode Bedside Commode # Voids 2 1 3 # Bowel Movements 1 - Exam PHYSICAL EXAMINATION: GENERAL: The patient is alert and oriented x3, not in any acute distress. Well developed, well nourished. As have generalized weakness HEENT: Pupils are round and equally reacting to light. EOMI. No scleral icterus. No conjunctival pallor. Normocephalic, atraumatic. No pharyngeal erythema. No thyromegaly. CARDIOVASCULAR: S1 and S2 present. No murmurs, rubs, or gallops. PULMONARY: Chest is clear to auscultation, no wheezing or crackles. Reproducible chest pain ABDOMEN: Soft, nontender, nondistended, normoactive bowel sounds. No palpable organomegaly. MUSCULOSKELETAL: No joint swelling or deformity. EXTREMITIES: No cyanosis, clubbing, or pedal edema. NEUROLOGICAL: Gross neurological examination did not reveal any focal deficits. 4+/5 strength in upper and lower extremities SKIN: No rashes. - Labs CBC & Chem 7: 03/29/18 07:39 03/29/18 07:39 Labs: Abnormal Lab Results - Last 24 Hours (Table) 03/29/18 03/29/18 Range/Units 07:39 07:39 WBC 2.8 L (3.8-10.6) k/uL RBC 2.95 L (3.80-5.40) m/uL Hgb 8.9 L (11.4-16.0) gm/dL Hct 29.3 L (34.0-46.0) % MCHC 30.4 L (31.0-37.0) g/dL RDW 17.9 H (11.5-15.5) % Lymphocytes # 0.2 L (1.0-4.8) k/uL Chloride 110 H (98-107) mmol/L Carbon Dioxide 21 L (22-30) mmol/L Glucose 137 H (74-99) mg/dL Calcium 8.3 L (8.4-10.2) mg/dL Alkaline Phosphatase 138 H (38-126) U/L Total Protein 5.3 L (6.3-8.2) g/dL Albumin 2.8 L (3.5-5.0) g/dL Microbiology - Last 24 Hours (Table) 03/27/18 18:30 Urine Culture - Final Urine,Catheterized 03/27/18 16:08 Blood Culture - Preliminary Blood No Growth after 24 hours Assessment and Plan Plan: -Increasing weakness and lethargy: Secondary to cancer itself most probably. Patient has extensive osseous metastases including metastases to the lumbosacral spine although patient does not have any other symptoms of chronic compression, MRI of lumbosacral spine did not show any significant can't compression patient the weakness and bilateral lower limbs significantly improved after Decadron which will be continued. Patient will undergo thoracic spine MRI today. Patient probably can be discharged tomorrow if there is no significant can't compression on thoracic MRI with oral Decadron and GI prophylaxis -Gastroesophageal reflux disease due to systemic steroids -Asymptomatic bacteriuria will not require any antibiotics. -Metastatic breast cancer: Further management as per oncology -Chest pain and musculoskeletal in nature. -Patient is on anticoagulation probably is being continued as anticoagulation after her recent hip surgery for DVT prophylaxis
--- NOTE | 2018-03-29 16:58 | MR ---
EXAMINATION TYPE: MR t2 spine survey wo con DATE OF EXAM: 03/29/2018 COMPARISON: None HISTORY: concern cord compression TECHNIQUE: Sagittal T2 weighted sequence of the entire spine is performed for survey. FINDINGS: Mild degenerative disc changes are noted throughout the visualized portions of the cervical and thora cic spine. Note is made of increased signal on T2-weighted sequences especially noted T5, T9, T12 magdy picious for metastatic disease. L1 compression deformity is present. Compression deformity at T10 is present and to a milder degree at T11. Dedicated images over the lumbar spine were obtained. There is degenerative disc change L4-5 L5-S1. C ompression deformity of L5 is present. Milder compression deformity of L3 is present. Axial images were obtained through the lower thoracic and through the lumbar spine. No cord contact i s evident. No significant spinal canal stenosis is evident. Significant retropulsion of compressed ve rtebral levels is not evident. Some mild posterior wall displacement at L1 is present without stenosi s or cord contact. IMPRESSION: 1. Mid to lower thoracic and lumbar spine compression deformities including T10, T11, L1, L3, L5. Sig nificant posterior wall displacement is not identified. Some mild posterior wall displacement is pres ent at L1 without cord contact. 2. Multilevel signal change within the thoracic and lumbar spine compatible with metastatic disease.
[2018-03-29] MEDS: RIVAROXABAN 20 MG TAB PO SCH (17:16)
--- NOTE | 2018-03-29 17:28 | P.PN ---
Subjective Progress Note Date: 03/29/18 Principal diagnosis: Metastatic Breast Cancer Strength improved on steroids, sitting on side of bed during evaulation Objective - Vital Signs Vital signs: Vital Signs Temp 97.4 F L 03/29/18 12:48 Pulse 100 03/29/18 12:48 Resp 20 03/29/18 12:48 BP 125/69 03/29/18 12:48 Pulse Ox 96 03/29/18 12:48 Intake & Output 03/28/18 03/29/18 03/29/18 18:59 06:59 18:59 Intake Total 590 160 Output Total 1800 Balance -1800 590 160 Intake: IV 160 0.9 160 Oral 590 Output: Urine 1800 Uretheral (Arias) 200 Other: Voiding Method Bedside Commode Toilet Toilet Bedside Commode Bedside Commode # Voids 2 1 3 # Bowel Movements 1 - Exam General - no acute distress, Head - NC, NT Neck - supple, Trachea Midline Mouth - No mucocytis or thrush, dry membranes Heart - Tachy, Regular rhythm Lungs - CTA bilaterally, No increased effort Abdomen - Soft, non-distended, non tender Skin - multiple scabbed areas to bilateral lower extremities, states from bugs from her dog ?fleas Extremities - Bilateral Upper Extremities good ROM and equal strength RLE 3/5, Decreased Sensation L2, L3 dermatone weaker flexion LLE 4/5, Sensation in tact Right Paresthesias over the Thoracic SPine Level to the Right and Lower left. Inability to transfer from bed to chair or ambulate without assistance is new. - Labs CBC & Chem 7: 03/29/18 07:39 03/29/18 07:39 Labs: Abnormal Lab Results - Last 24 Hours (Table) 03/29/18 03/29/18 Range/Units 07:39 07:39 WBC 2.8 L (3.8-10.6) k/uL RBC 2.95 L (3.80-5.40) m/uL Hgb 8.9 L (11.4-16.0) gm/dL Hct 29.3 L (34.0-46.0) % MCHC 30.4 L (31.0-37.0) g/dL RDW 17.9 H (11.5-15.5) % Lymphocytes # 0.2 L (1.0-4.8) k/uL Chloride 110 H (98-107) mmol/L Carbon Dioxide 21 L (22-30) mmol/L Glucose 137 H (74-99) mg/dL Calcium 8.3 L (8.4-10.2) mg/dL Alkaline Phosphatase 138 H (38-126) U/L Total Protein 5.3 L (6.3-8.2) g/dL Albumin 2.8 L (3.5-5.0) g/dL Microbiology - Last 24 Hours (Table) 03/27/18 18:30 Urine Culture - Final Urine,Catheterized 03/27/18 16:08 Blood Culture - Preliminary Blood No Growth after 24 hours Assessment and Plan Plan: Assessment and Recommendations. 1. Metastatic Breast Cancer - Leptomeningeal and diffuse bone mets - Known Pathological Fractures - COntinue on Arimidex and Ibrance at this time 2. Unilateral and Lower Extremity Weakness, New: - COncern for progression leading to cord compression - Dex 4mg po q6 with PPI Intiated - Stat MRI ordered, unable to tolerate lying flat, discussed with nursing and MRI and will order ativan 1mg IV prior to completion of test in am. (RN may repeat x1) - Depending on results of MRI, Radiation Oncology Consult versus transfer for Neurosurgery will be determined MRI sacrum reviewed, awaiting completion of MRI 3. HX: DVTs - Continue Xarelto.
[2018-03-30] MEDS: MORPHINE SULFATE ER 30 MG TABLET PO SCH ×2 (05:16→11:56)
[2018-03-30] MEDS: DEXAMETHASONE SOD PHOSPHATE 4 MG/ML 1 ML VIAL IVP SCH ×3 (05:18→17:42)
[2018-03-30] MEDS: ANASTROZOLE 1 MG TAB PO SCH (07:58)
[2018-03-30] MEDS: ASPIRIN 325 MG TAB PO SCH (07:58)
[2018-03-30] MEDS: PANTOPRAZOLE 40 MG TABLET PO SCH ×2 (08:00→17:41)
[2018-03-30] MEDS: CALCIUM CARBONATE 500 MG CHEWABLE PO SCH (08:00)
[2018-03-30] MEDS: MAGNESIUM OXIDE 400 MG TAB PO SCH (08:01)
[2018-03-30] MEDS: GABAPENTIN 100 MG CAP PO SCH (08:01)
[2018-03-30] MEDS: SENNOSIDES-DOCUSATE SODIUM 1 EACH TAB PO SCH ×3 (08:07→17:44)
[2018-03-30] MEDS: MULTIVITAMINS, THERA 1 EACH TAB PO SCH (11:57)
--- NOTE | 2018-03-30 16:37 | P.CNOR ---
History of Present Illness - [facility] Consult date: 03/30/18 Consult reason: back pain History of present illness: the patient is a 52-year-old femalewho is well-known to our practice with a history of metastatic breast cancer with multiple compression fractures in her thoracic and lumbar spine. The patient states that approximately 1-2 days ago she developed numbness from her chest down for a few minutes. She states that this happens occasionally at this time is worse. She states that lately she's been doing more around the house and she thinks that that aggravated her back. She states that she does frequently have to change her position from sitting and laying every 2 hours at home to prevent the numbness and tingling in her legs. She denies any recent falls. She uses a wheelchair at home and occasionally a walker. She denies any bowel or bladder incontinence. The patient states that she is having tingling at this time in her lower extremities. The patient was started on Decadron and she appears to be improving with her weakness and numbness. The patient has been evaluated by medical management and oncology. The patient will be discharged home today. Her pain is controlled at this time. The patient has been evaluated by a neurologist at [facility] in the past. She denies fever, chills, rigors, shortness breath, chest pain, and abdominal pain today. Review of Systems Constitutional: Denies chills, Denies fatigue, Denies fever Cardiovascular: Denies chest pain, Denies shortness of breath Respiratory: Denies cough Gastrointestinal: Reports constipation, Denies diarrhea, Denies nausea, Denies vomiting Genitourinary: Denies stress incontinence, Denies urge incontinence Musculoskeletal: Reports leg numbness/tingling Neurological: Reports numbness, Reports weakness Past Medical History Past Medical History: Cancer Additional Past Medical History / Comment(s): FX to HEAD of RADIUS 05/20/15, HX OF MIGRAINE, CHRONIC PAIN RT KNEE, Thoracic fracture 06/05/17, Sprained Left ankle & Left Shoulder, Bilateral Hip pain. breast CA with mets to bone History of Any Multi-Drug Resistant Organisms: None Reported Past Surgical History: Cholecystectomy, Orthopedic Surgery Additional Past Surgical History / Comment(s): SX RT KNEE 3-4, Right Radius repair Additional Past Anesthesia/Blood Transfusion Reaction / Comm: STATES TAKES A LONG TIME TO "GO TO SLEEP" Past Psychological History: No Psychological Hx Reported Smoking Status: Former smoker Past Alcohol Use History: None Reported Past Drug Use History: None Reported - Past Family History Mother Family Medical History: Unable to Obtain Additional Family Medical History / Comment(s): PT ADOPTED Medications and Allergies Home Medications Medication Instructions Recorded Confirmed Type Cetirizine HCl [Zyrtec] 10 mg PO DAILY PRN 07/04/15 03/27/18 History EPINEPHrine (Auto Inject) [Epipen] 0.3 mg IM ONCE PRN 07/04/15 03/27/18 History Magnesium Oxide [Mag-Ox] 400 mg PO DAILY 06/07/17 03/27/18 History Methocarbamol [Robaxin] 1,000 mg PO Q8H PRN 06/07/17 03/27/18 History Dexamethasone 2 mg PO HS 06/24/17 03/27/18 History Gabapentin [Neurontin] 100 mg PO BID 09/12/17 03/27/18 History Tamoxifen Citrate 20 mg PO DAILY 09/12/17 03/27/18 History Aspirin 325 mg PO DAILY 02/10/18 03/27/18 History Calcium Carb/Vitamin D3/Vit K1 1 tab PO DAILY 02/10/18 03/27/18 History [Citracal Soft Chew] Celecoxib [CeleBREX] 200 mg PO BID 02/10/18 03/27/18 History Morphine Sulfate ER [Ms Contin] 30 mg PO Q8H 02/10/18 03/27/18 History Multivitamins, Thera [Multivitamin 1 tab PO DAILY 02/10/18 03/27/18 History (formulary)] Rivaroxaban [Xarelto] 20 mg PO HS 02/10/18 03/27/18 History Sennosides-Docusate Sodium 1 tab PO DAILY 02/10/18 03/27/18 History [Senokot-S] diphenhydrAMINE [Benadryl] 25 mg PO QID PRN 02/10/18 03/27/18 History oxyCODONE-APAP 10-325MG [Percocet 1 tab PO Q4H PRN 03/27/18 03/27/18 History 10-325 mg] Pantoprazole [Protonix] 40 mg PO AC-BID #60 tablet. 03/30/18 Rx Allergies Allergy/AdvReac Type Severity Reaction Status Date / Time avocado Allergy Anaphylaxis Verified 03/27/18 17:01 Iodinated Contrast- Oral and Allergy Swelling Verified 03/27/18 17:01 IV Dye latex Allergy Rash/Hives/ Verified 03/27/18 17:01 swelling shellfish derived [Shellfish] Allergy Swelling Verified 03/27/18 17:01 wheat Allergy Swelling Verified 03/27/18 17:01 coconut AdvReac Nausea & Verified 03/27/18 17:01 Vomiting & Diarrhea artificial sweetener AdvReac Unknown Unknown Uncoded 03/27/18 15:41 Physical Examination The patient is a 52-year-old female who is in no acute distress. She is alert and oriented 3. Abdomen is soft and nontender. Chest has good excursion with deep inspiration. Exam of the back reveals no open wounds. There is mild paraspinal spasm over the thoracic and lumbar spine. She has sustained dorsiflexion and plantar flexion and EHL function with mild weakness bilaterally. She has good foot and ankle motion. Bilateral calves are soft and nontender. Neurological and circulatory status is intact. Results - Labs Labs: Microbiology - Last 24 Hours (Table) 03/27/18 16:08 Blood Culture - Preliminary Blood No Growth after 48 hours H & H 03/27/18 03/29/18 Range/Units 16:08 07:39 Hgb 10.6 L 8.9 L (11.4-16.0) gm/dL Hct 34.2 29.3 L (34.0-46.0) % Coagulation 03/27/18 Range/Units 16:08 INR 1.1 (<1.2) Result Diagrams: 03/29/18 07:39 03/29/18 07:39 - Diagnostic results Lumbar MRI with/without contrast: image reviewed (MRI of the cervical, thoracic and lumbar spine dated 03/29/2018 reveals mild to lower thoracic and lumbar spine compression deformities at T10, T11, L1, L3, and L5. Multilevel signal change throughout the thoracic and lumbar spine compatible with metastatic disease.) Assessment and Plan (1) Compression fracture Current Visit: Yes Status: Acute Code(s): CZC2323 - SNOMED Code(s): 775931045 (2) Metastatic breast cancer Current Visit: Yes Status: Acute Code(s): C50.919 - MALIGNANT NEOPLASM OF UNSP SITE OF UNSPECIFIED FEMALE BREAST SNOMED Code(s): 689162185 Plan: The clinical and MRI findings were discussed with the patient. The case was also discussed with Dr. Cheng. MRI from yesterday was compared to the latest MRI in our office, no acute changes noted. The patient has made significant improvement since admission and steroids. The patient will be discharged home today. The patient will follow-up with Dr. Cheng as previously scheduled, tomorrow, due to the patient's transportation. She is scheduled for radiation therapy to her thoracic and lumbar spine starting on Tuesday next week for pain control and to prevent further damage to the vertebral spine. We agree with this treatment and we'll follow patient closely in the office setting on an outpatient basis.
--- NOTE | 2018-03-30 17:14 | P.PN ---
Subjective Progress Note Date: 03/30/18 Principal diagnosis: Metastatic Breast Cancer Strength improved on steroids, She still feels she is weaker than her baseline last week. Reviewed MRIs, at this time hold off H transfer as no indication for neurosurgery, will need assessment from radiation Oncology. Objective - Vital Signs Vital signs: Vital Signs Temp 97.6 F 03/30/18 15:24 Pulse 101 H 03/30/18 15:24 Resp 16 03/30/18 15:24 BP 143/68 03/30/18 15:24 Pulse Ox 98 03/30/18 15:24 Intake & Output 03/29/18 03/30/18 03/30/18 18:59 06:59 18:59 Intake Total 160 800 160 Balance 160 800 160 Intake: IV 160 160 0.9 160 160 Oral 800 Other: Voiding Method Toilet Toilet Toilet Bedside Commode Bedside Commode Bedside Commode Diaper Diaper # Voids 2 2 3 - Exam General - no acute distress, Head - NC, NT Neck - supple, Trachea Midline Mouth - No mucocytis or thrush, dry membranes Heart - Tachy, Regular rhythm Lungs - CTA bilaterally, No increased effort Abdomen - Soft, non-distended, non tender Skin - multiple scabbed areas to bilateral lower extremities, states from bugs from her dog ?fleas Extremities - Bilateral Upper Extremities good ROM and equal strength RLE 3/5, Decreased Sensation L2, L3 dermatone weaker flexion LLE 4/5, Sensation in tact Right Paresthesias over the Thoracic SPine Level to the Right and Lower left. Inability to transfer from bed to chair or ambulate without assistance is new. - Labs CBC & Chem 7: 03/29/18 07:39 03/29/18 07:39 Labs: Microbiology - Last 24 Hours (Table) 03/27/18 16:08 Blood Culture - Preliminary Blood No Growth after 48 hours Assessment and Plan Plan: Assessment and Recommendations. 1. Metastatic Breast Cancer - Leptomeningeal and diffuse bone mets - Known Pathological Fractures - COntinue on Arimidex and Ibrance at this time 2. Unilateral and Lower Extremity Weakness, New: - COncern for progression leading to cord compression - Dex 4mg po q6 with PPI Intiated - Stat MRI ordered, unable to tolerate lying flat, discussed with nursing and MRI and will order ativan 1mg IV prior to completion of test in am. (RN may repeat x1) - Depending on results of MRI, Radiation Oncology Consult versus transfer for Neurosurgery will be determined MRI sacrum reviewed, awaiting completion of MRI 3. HX: DVTs - Continue Xarelto. Oncology Plan: 1. Patient will need to continue on Xarelto for hx DVTs 2. Patient will continue on Ibrance and Arimidex per schedule 3. She will Continue on Dexamethasone. Rx for 4mg po q8 hours sent to pharmacy and PPI has also been ordered 4. She will need evaluation by radiation oncology in the event she is discharged there is an appointment made for Tuesday, although Dr. Arenas will be here to evaluate patient 03/31/18 if not discharged 5. She has a follow-up with Dr. Hope on 04/17/18 Plan has been discussed in detail with patient along with results of MRI, all questions answered and understanding stated
[2018-03-30] MEDS: RIVAROXABAN 20 MG TAB PO SCH (17:41)
--- NOTE | 2018-03-30 18:37 | P.DS ---
Providers Date of admission: 03/27/18 18:27 Expected date of discharge: 03/30/18 Attending physician: Mavis Brantley Consults: 03/27/18 18:27 Consult Physician Routine Consulting Provider: Alonzo Oconnor Consult Reason/Comments: known Do you want consulting provider notified?: Yes 03/30/18 09:27 Consult Physician Urgent Consulting Provider: Miquel Arenas Consult Reason/Comments: spine nvolvement, room for radaition Do you want consulting provider notified?: Yes 03/30/18 11:32 Consult Physician Urgent Consulting Provider: Pacheco Cheng Consult Reason/Comments: back pain Do you want consulting provider notified?: Yes Primary care physician: [facility] Course: Final diagnoses -Increasing weakness and lethargy: Secondary to cancer itself most probably. Patient has extensive osseous metastases including metastases to the lumbosacral spine although patient does not have any other symptoms of chronic compression, MRI of lumbosacral spine did not show any significant cord compression .patient's weakness and bilateral lower limbs significantly improved after Decadron which will be continued. Patient underwentunderwent thoracic spine MRI reporting no cord contact evident ,no significant spinal canal stenosis; mild to lower thoracic and lumbar spine compression deformities including T10, T11, L1, L3, L5. Small mild posterior lateral displacement at L1 without cord contact. Multilevel signal change within the thoracic and lumbar spine compatible with metastatic disease. -Gastroesophageal reflux disease due to systemic steroids -Asymptomatic bacteriuria will not require any antibiotics. -Metastatic breast cancer: Further management as per oncology -Chest pain and musculoskeletal in nature. -Patient is on anticoagulation probably is being continued as anticoagulation after her recent hip surgery for DVT prophylaxis Hospital course:52-year-old female came in with progressive weakness of bilateral lower limbs and patient has significant the spinal metastasis upper breast cancer. Evaluated by orthopedic spine surgery, oncology.improved with Decadron. underwent lumbosacral MRI which did not show any significant cord compression or cauda equina. Patient underwentunderwent thoracic spine MRI reporting no cord contact evident ,no significant spinal canal stenosis; mild to lower thoracic and lumbar spine compression deformities including T10, T11, L1, L3, L5. Small mild posterior lateral displacement at L1 without cord contact. Multilevel signal change within the thoracic and lumbar spine compatible with metastatic disease. Scheduled to meet with oncology radiologist on Tuesday. Cleared by all consults for discharge. Patient is being discharged home in a stable condition with guarded prognosis. - Exam GENERAL: The patient is alert and oriented x3, not in any acute distress. CARDIOVASCULAR: S1 and S2 present. No murmurs, rubs, or gallops. PULMONARY: Chest is clear to auscultation, no wheezing or crackles. ABDOMEN: Soft, nontender, nondistended, normoactive bowel sounds. No palpable organomegaly. NEUROLOGICAL: Gross neurological examination did not reveal any focal deficits. 4+/5 strength in upper and lower extremities The impression and plan of care has been dictated as directed. : I performed a history and examination of this patient, discussed the same with the dictator. I agree with the dictator's note ,documented as a scribe. Any additional findings or plans will be noted. Time taken: 35 minutes Patient Condition at Discharge: Stable Plan - Discharge Summary New Discharge Prescriptions: New Pantoprazole [Protonix] 40 mg PO AC-BID #60 tablet. Dexamethasone 4 mg PO Q8HR #45 tablet Anastrozole [Arimidex] 1 mg PO DAILY tab Rivaroxaban [Xarelto] 20 mg PO W/SUPPER tab Temazepam [Restoril] 15 mg PO HS PRN cap PRN Reason: Insomnia Continue EPINEPHrine (Auto Inject) [Epipen] 0.3 mg IM ONCE PRN PRN Reason: Anaphylaxis Cetirizine HCl [Zyrtec] 10 mg PO DAILY PRN PRN Reason: Allergy Symptoms Methocarbamol [Robaxin] 1,000 mg PO Q8H PRN PRN Reason: Muscle Spasm Magnesium Oxide [Mag-Ox] 400 mg PO DAILY Tamoxifen Citrate 20 mg PO DAILY Gabapentin [Neurontin] 100 mg PO BID Aspirin 325 mg PO DAILY Morphine Sulfate ER [Ms Contin] 30 mg PO Q8H Multivitamins, Thera [Multivitamin (formulary)] 1 tab PO DAILY diphenhydrAMINE [Benadryl] 25 mg PO QID PRN PRN Reason: Allergy Symptoms Sennosides-Docusate Sodium [Senokot-S] 1 tab PO DAILY Rivaroxaban [Xarelto] 20 mg PO HS Calcium Carb/Vitamin D3/Vit K1 [Citracal Soft Chew] 1 tab PO DAILY Celecoxib [CeleBREX] 200 mg PO BID oxyCODONE-APAP 10-325MG [Percocet 10-325 mg] 1 tab PO Q4H PRN PRN Reason: Pain Discontinued Dexamethasone 2 mg PO HS Discharge Medication List Cetirizine HCl [Zyrtec] 10 mg PO DAILY PRN 07/04/15 [History] EPINEPHrine (Auto Inject) [Epipen] 0.3 mg IM ONCE PRN 07/04/15 [History] Magnesium Oxide [Mag-Ox] 400 mg PO DAILY 06/07/17 [History] Methocarbamol [Robaxin] 1,000 mg PO Q8H PRN 06/07/17 [History] Gabapentin [Neurontin] 100 mg PO BID 09/12/17 [History] Tamoxifen Citrate 20 mg PO DAILY 09/12/17 [History] Aspirin 325 mg PO DAILY 02/10/18 [History] Calcium Carb/Vitamin D3/Vit K1 [Citracal Soft Chew] 1 tab PO DAILY 02/10/18 [ History] Celecoxib [CeleBREX] 200 mg PO BID 02/10/18 [History] Morphine Sulfate ER [Ms Contin] 30 mg PO Q8H 02/10/18 [History] Multivitamins, Thera [Multivitamin (formulary)] 1 tab PO DAILY 02/10/18 [History ] Rivaroxaban [Xarelto] 20 mg PO HS 02/10/18 [History] Sennosides-Docusate Sodium [Senokot-S] 1 tab PO DAILY 02/10/18 [History] diphenhydrAMINE [Benadryl] 25 mg PO QID PRN 02/10/18 [History] oxyCODONE-APAP 10-325MG [Percocet 10-325 mg] 1 tab PO Q4H PRN 03/27/18 [History] Anastrozole [Arimidex] 1 mg PO DAILY tab 03/30/18 [Rx] Dexamethasone 4 mg PO Q8HR #45 tablet 03/30/18 [Rx] Pantoprazole [Protonix] 40 mg PO AC-BID #60 tablet. 03/30/18 [Rx] Rivaroxaban [Xarelto] 20 mg PO W/SUPPER tab 03/30/18 [Rx] Temazepam [Restoril] 15 mg PO HS PRN cap 03/30/18 [Rx] Follow up Appointment(s)/Referral(s): Pacheco Cheng DO [Doctor of Osteopathic Medicine] - 04/07/18 1:00 pm (Appt. is with CHERISE Carlos) [facility], [NON-STAFF] - 1 Week Miquel Arenas MD [STAFF PHYSICIAN] - 04/03/18 9:30 am Juanito Parnell DO [Primary Care Provider] - 3 Days (Patient prefers to make own appt. ) Viviane Hope MD [STAFF PHYSICIAN] - 04/17/18 2:30 pm Patient Instructions/Handouts: Dexamethasone (By mouth), Pantoprazole (By mouth ), Breast Cancer in Women (DC), Internal Radiation Therapy (DC), Bone Metastasis (DC) Activity/Diet/Wound Care/Special Instructions: Activity as tolerated.
[2018-03-30 21:43] VITALS: BP 155/100; PULSE 89; RESP 24; TEMP 97.5
== END 2018-03-30 22:00 | disposition home health service (06) | DRG 543 ==
LOC: EC 15:24 → 5MS5E 18:27
PROVIDERS: ADMIT Hospitalist; ATTEND Hospitalist
DX: C79.51 Secondary malignant neoplasm of bone (principal); M84.58XA Pathological fracture in neoplastic disease, other specified site, initial encounter for fracture; C50.911 Malignant neoplasm of unspecified site of right female breast; D64.9 Anemia, unspecified; G89.29 Other chronic pain; G43.909 Migraine, unspecified, not intractable, without status migrainosus; R07.89 Other chest pain; K29.70 Gastritis, unspecified, without bleeding; K59.00 Constipation, unspecified; T38.0X5A Adverse effect of glucocorticoids and synthetic analogues, initial encounter; M25.561 Pain in right knee; M25.551 Pain in right hip; M25.552 Pain in left hip; K21.9 Gastro-esophageal reflux disease without esophagitis; R82.71 Bacteriuria; Z79.82 Long term (current) use of aspirin; Z79.01 Long term (current) use of anticoagulants; Z79.811 Long term (current) use of aromatase inhibitors; Z79.1 Long term (current) use of non-steroidal anti-inflammatories (NSAID); Z79.891 Long term (current) use of opiate analgesic; Z79.52 Long term (current) use of systemic steroids; Z79.899 Other long term (current) drug therapy; Z90.49 Acquired absence of other specified parts of digestive tract; Z92.3 Personal history of irradiation; Z87.311 Personal history of (healed) other pathological fracture; Z17.0 Estrogen receptor positive status [ER+]; Z96.612 Presence of left artificial shoulder joint; Z87.891 Personal history of nicotine dependence; Z91.041 Radiographic dye allergy status; Z91.02 Food additives allergy status; Z91.040 Latex allergy status; Z91.013 Allergy to seafood; Z91.018 Allergy to other foods
CPT/HCPCS: 36415; 51702; 71046; 72131; 72192; 72195; 80053; 81001; 82550; 82553; 83605; 83735; 84100; 84443; 84484; 85025; 85610; 85730; 87040; 87086; 93005; 96361; 96374; 96375; 99285

== ENCOUNTER 2018-04-02 10:21 | Inpatient (IN) | payer OTHER ==
--- NOTE | 2018-04-02 11:22 | ED ---
Female Urogenital HPI - General Chief complaint: Urogenital Stated complaint: frequent urinination Time Seen by Provider: 04/02/18 10:56 Source: patient, RN notes reviewed, old records reviewed Mode of arrival: wheelchair Limitations: no limitations - History of Present Illness Initial comments: this patient's 52-year-old female with history of metastatic breast cancer with multiple compression fractures of her thoracic and lumbar spine presents emergency department today with chief complaint of dysuria. Patient reports that she's been having episode of polyuria and going to the bathroom every 30 minutes. Due to the severe pain in her back and spine sheet and had a difficult time with ambulating to get up to go to the bathroom. Patient reports that she is scheduled to have radiation treatments on her spine for the metastatic breast cancer tomorrow. Patient reports that she has had no saddle anesthesias. She reports that she did have a catheter while she was in the room hospital. She was discharged approximately 3 days ago for the lower back pain and lower extremity weakness. She has been improved after the steroids that were administered at that time. Patient states she is currently on her pain medication morphine, Percocet. Patient states that she is not had a dose of her pain meds since early this morning. - Related Data Home Medications Medication Instructions Recorded Confirmed Cetirizine HCl [Zyrtec] 10 mg PO DAILY PRN 07/04/15 03/27/18 EPINEPHrine (Auto Inject) [Epipen] 0.3 mg IM ONCE PRN 07/04/15 03/27/18 Magnesium Oxide [Mag-Ox] 400 mg PO DAILY 06/07/17 03/27/18 Methocarbamol [Robaxin] 1,000 mg PO Q8H PRN 06/07/17 03/27/18 Gabapentin [Neurontin] 100 mg PO BID 09/12/17 03/27/18 Tamoxifen Citrate 20 mg PO DAILY 09/12/17 03/27/18 Aspirin 325 mg PO DAILY 02/10/18 03/27/18 Calcium Carb/Vitamin D3/Vit K1 1 tab PO DAILY 02/10/18 03/27/18 [Citracal Soft Chew] Celecoxib [CeleBREX] 200 mg PO BID 02/10/18 03/27/18 Morphine Sulfate ER [Ms Contin] 30 mg PO Q8H 02/10/18 03/27/18 Multivitamins, Thera [Multivitamin 1 tab PO DAILY 02/10/18 03/27/18 (formulary)] Rivaroxaban [Xarelto] 20 mg PO HS 02/10/18 03/27/18 Sennosides-Docusate Sodium 1 tab PO DAILY 02/10/18 03/27/18 [Senokot-S] diphenhydrAMINE [Benadryl] 25 mg PO QID PRN 02/10/18 03/27/18 oxyCODONE-APAP 10-325MG [Percocet 1 tab PO Q4H PRN 03/27/18 03/27/18 10-325 mg] Previous Rx's Medication Instructions Recorded Anastrozole [Arimidex] 1 mg PO DAILY tab 03/30/18 Dexamethasone 4 mg PO Q8HR #45 tablet 03/30/18 Pantoprazole [Protonix] 40 mg PO AC-BID #60 tablet. 03/30/18 Rivaroxaban [Xarelto] 20 mg PO W/SUPPER tab 03/30/18 Temazepam [Restoril] 15 mg PO HS PRN cap 03/30/18 Allergies Allergy/AdvReac Type Severity Reaction Status Date / Time avocado Allergy Anaphylaxis Verified 04/02/18 10:47 Iodinated Contrast- Oral and Allergy Swelling Verified 04/02/18 10:47 IV Dye latex Allergy Rash/Hives/ Verified 04/02/18 10:47 swelling shellfish derived [Shellfish] Allergy Swelling Verified 04/02/18 10:47 wheat Allergy Swelling Verified 04/02/18 10:47 coconut AdvReac Nausea & Verified 04/02/18 10:47 Vomiting & Diarrhea artificial sweetener AdvReac Unknown Unknown Uncoded 04/02/18 10:47 Review of Systems ROS Statement: Those systems with pertinent positive or pertinent negative responses have been documented in the HPI. ROS Other: All systems not noted in ROS Statement are negative. Past Medical History Past Medical History: Cancer Additional Past Medical History / Comment(s): FX to HEAD of RADIUS 05/20/15, HX OF MIGRAINE, CHRONIC PAIN RT KNEE, Thoracic fracture 06/05/17, Sprained Left ankle & Left Shoulder, Bilateral Hip pain. breast CA with mets to bone History of Any Multi-Drug Resistant Organisms: None Reported Past Surgical History: Cholecystectomy, Orthopedic Surgery Additional Past Surgical History / Comment(s): SX RT KNEE 3-4, Right Radius repair Additional Past Anesthesia/Blood Transfusion Reaction / Comment(s): STATES TAKES A LONG TIME TO "GO TO SLEEP" Past Psychological History: No Psychological Hx Reported Smoking Status: Former smoker Past Alcohol Use History: None Reported Past Drug Use History: None Reported - Past Family History Mother Family Medical History: Unable to Obtain Additional Family Medical History / Comment(s): PT ADOPTED General Exam - General Exam Comments Initial Comments: this is a 52-year-old female. Patient is alert and oriented. Patient appears in mild to moderate discomfort. Limitations: no limitations General appearance: alert, in no apparent distress Head exam: Present: atraumatic, normocephalic, normal inspection ENT exam: Present: normal exam, mucous membranes moist Neck exam: Present: normal inspection. Absent: tenderness, meningismus, lymphadenopathy Respiratory exam: Present: normal lung sounds bilaterally. Absent: respiratory distress, wheezes, rales, rhonchi, stridor Cardiovascular Exam: Present: regular rate, normal rhythm, normal heart sounds. Absent: systolic murmur, diastolic murmur, rubs, gallop, clicks GI/Abdominal exam: Present: soft, normal bowel sounds. Absent: distended, tenderness, guarding, rebound, rigid Extremities exam: Present: normal inspection, full ROM, normal capillary refill. Absent: tenderness, pedal edema, joint swelling, calf tenderness Back exam: Present: normal inspection Neurological exam: Present: alert, oriented X3, CN II-XII intact, abnormal gait (Patient is very weak and unsteady gait.) Psychiatric exam: Present: normal affect, normal mood Skin exam: Present: warm, dry, intact, normal color. Absent: rash Course Vital Signs 04/02/18 04/02/18 04/02/18 10:45 11:30 12:44 Temperature 98.2 F 99.0 F Pulse Rate 112 H 98 112 H Respiratory 20 18 Rate Blood Pressure 120/72 165/70 O2 Sat by Pulse 98 98 Oximetry - Reevaluation(s) Reevaluation #1: 04/02/18 12:00 Patient is reevaluated this time informed that her urinalysis is normal. Patient is crying in pain. She states she just this week. It did take 2 people to assist her to use the bedside commode. Patient is concerned and go home and fall. She states she is too weak and unstable to return home. Her works all day and is unable to help care for her as well. Patient requests admission for management and possibility of placement to extended care facility. Medical Decision Making - Medical Decision Making 52-year-old female with metastatic breast cancer over her spine presents emergency Department with frequency of urination. At this time her urinalysis is negative for any infection. Patient states that she's having to get up every 30 minutes to the bathroom. Patient states she's had no episodes of incontinence. Patient reports she feels very weak and unstable. She is here with her . He states he is unable to care for her at home at this time due to her fragile state and weakness. Patient has no falls since her discharge. This time she states she is not stable to go home and needs higher level of care due to severe pain due to the metastases. Patient will be admitted this time under observation. Dr. Gunn discussed the case with the [facility] hospitalist. - Lab Data Result diagrams: 04/02/18 12:15 04/02/18 12:15 Lab Results 04/02/18 04/02/18 04/02/18 Range/Units 11:25 12:15 12:15 WBC 4.7 (3.8-10.6) k/uL RBC 3.64 L (3.80-5.40) m/uL Hgb 11.1 L (11.4-16.0) gm/dL Hct 35.8 (34.0-46.0) % MCV 98.2 (80.0-100.0) fL MCH 30.4 (25.0-35.0) pg MCHC 31.0 (31.0-37.0) g/dL RDW 18.9 H (11.5-15.5) % Plt Count 419 (150-450) k/uL Neutrophils % 76 % Lymphocytes % 14 % Monocytes % 5 % Eosinophils % 3 % Basophils % 1 % Neutrophils # 3.5 (1.3-7.7) k/uL Lymphocytes # 0.7 L (1.0-4.8) k/uL Monocytes # 0.2 (0-1.0) k/uL Eosinophils # 0.2 (0-0.7) k/uL Basophils # 0.0 (0-0.2) k/uL Anisocytosis Slight Macrocytosis Slight Sodium 141 (137-145) mmol/L Potassium 4.1 (3.5-5.1) mmol/L Chloride 107 (98-107) mmol/L Carbon Dioxide 27 (22-30) mmol/L Anion Gap 7 mmol/L BUN 10 (7-17) mg/dL Creatinine 0.67 (0.52-1.04) mg/dL Est GFR (CKD-EPI)AfAm >90 (>60 ml/min/1.73 sqM) Est GFR (CKD-EPI)NonAf >90 (>60 ml/min/1.73 sqM) Glucose 89 (74-99) mg/dL Calcium 8.8 (8.4-10.2) mg/dL Magnesium 2.2 (1.6-2.3) mg/dL Total Bilirubin 0.6 (0.2-1.3) mg/dL AST 47 H (14-36) U/L ALT 23 (9-52) U/L Alkaline Phosphatase 182 H (38-126) U/L Total Protein 6.6 (6.3-8.2) g/dL Albumin 3.4 L (3.5-5.0) g/dL Urine Color Light Yellow Urine Appearance Clear (Clear) Urine pH 6.0 (5.0-8.0) Ur Specific [place] 1.008 (1.001-1.035) Urine Protein Negative (Negative) Urine Glucose (UA) Negative (Negative) Urine Ketones Negative (Negative) Urine Blood Negative (Negative) Urine Nitrite Negative (Negative) Urine Bilirubin Negative (Negative) Urine Urobilinogen <2.0 (<2.0) mg/dL Ur Leukocyte Esterase Negative (Negative) 04/02/18 13:01 EKG shows sinus tachycardia, cannot really to forget and treatment. EKG noted. When she would've 111 beats were minute period. Intervals 122. She tenriism 68 ms. QT QTC 34/454 ms. No evidence of ST elevation or T-wave inversion. - Radiology Data Radiology results: report reviewed Disposition Clinical Impression: Metastatic breast cancer, Intractable pain, Impaired mobility and ADLs Disposition: ADMITTED IP TO THIS [facility] Condition: Stable Is patient prescribed a controlled substance at d/c from ED?: No Referrals: Juanito Parnell DO [Primary Care Provider] - 1-2 days Time of Disposition: 13:38
[2018-04-02] MEDS ORDERED: oxyCODONE-APAP 10-325MG 1 EACH TAB PO STA (11:23)
[2018-04-02 11:38] LABS: Appearance,Urine Clear (Clear); Bilirubin,Urine Negative (Negative); Blood,Urine Negative (Negative); Color,Urine Light Yellow; Glucose,Urine (UA) Negative (Negative); Ketones,Urine Negative (Negative); Leukocyte Esterase,Urine Negative (Negative); Nitrite,Urine Negative (Negative); Protein,Urine Negative (Negative); Specific Gravity,Urine 1.008 (1.001-1.035); Urobilinogen,Urine <2.0 mg/dL (<2.0)
[2018-04-02] MEDS ORDERED: SODIUM CHLORIDE 0.9% 1,000 ML IV ONE (12:01)
[2018-04-02 12:40] LABS: Anisocytosis Slight; Basophils % (A) 1 %; Eosinophils # (A) 0.2 k/uL (0-0.7); Eosinophils % (A) 3 %; HCT 35.8 % (34.0-46.0); HGB 11.1 gm/dL (11.4-16.0); Lymphocytes # (A) 0.7 k/uL (1.0-4.8); Lymphocytes % (A) 14 %; MCH 30.4 pg (25.0-35.0); MCV 98.2 fL (80.0-100.0); Macrocytosis Slight; Mean Platelet Volume 6.8; Monocytes # (A) 0.2 k/uL (0-1.0); Monocytes % (A) 5 %; Neutrophils # (A) 3.5 k/uL (1.3-7.7); Neutrophils % (A) 76 %; Platelet Count 419 k/uL (150-450); RBC 3.64 m/uL (3.80-5.40); RDW 18.9 % (11.5-15.5); WBC 4.7 k/uL (3.8-10.6)
[2018-04-02 13:05] LABS: Albumin 3.4 g/dL (3.5-5.0); Anion Gap 7 mmol/L; Calcium 8.8 mg/dL (8.4-10.2); Carbon Dioxide 27 mmol/L (22-30); Chloride 107 mmol/L (98-107); Glucose 89 mg/dL (74-99); Magnesium 2.2 mg/dL (1.6-2.3); Sodium 141 mmol/L (137-145); Total Bilirubin 0.6 mg/dL (0.2-1.3); Total Protein 6.6 g/dL (6.3-8.2)
[2018-04-02 13:06] LABS: ALT 23 U/L (9-52); AST 47 U/L (14-36); Alkaline Phosphatase 182 U/L (38-126); Blood Urea Nitrogen 10 mg/dL (7-17); Potassium 4.1 mmol/L (3.5-5.1)
[2018-04-02] MEDS ORDERED: NALOXONE 0.4 MG/ML 1 ML VIAL IV PRN (13:41)
[2018-04-02] MEDS ORDERED: IBUPROFEN 400 MG TAB PO PRN (13:41)
[2018-04-02] MEDS ORDERED: KETOROLAC 30 MG/ML 1 ML VIAL IVP PRN ×2 (13:41→18:18)
[2018-04-02] MEDS ORDERED: ACETAMINOPHEN TAB 325 MG TAB PO PRN (13:41)
[2018-04-02] MEDS ORDERED: ONDANSETRON 4 MG/2 ML VIAL IVP PRN (13:41)
[2018-04-02] MEDS ORDERED: EPINEPHrine 1 MG/ML 1 ML AMP IM PRN (14:22)
[2018-04-02] MEDS ORDERED: LORATADINE 10 MG TAB PO PRN (14:22)
[2018-04-02] MEDS ORDERED: METHOCARBAMOL 500 MG TAB PO PRN (14:22)
[2018-04-02] MEDS ORDERED: TEMAZEPAM 15 MG CAP PO PRN (14:22)
[2018-04-02 15:37] VITALS: BMI 22.9
--- NOTE | 2018-04-02 15:42 | XR ---
EXAMINATION TYPE: XR chest 1V portable DATE OF EXAM: 04/02/2018 CLINICAL HISTORY: Difficulty breathing and CHF progress study. History of metastatic breast cancer t o bones. TECHNIQUE: Single AP portable upright view of the chest is obtained. COMPARISON: Chest x-ray from 6 days earlier FINDINGS: There is chronic parenchymal change without suspicious new focal airspace opacity, pleural effusion, or pneumothorax seen bilaterally. Cardiac silhouette size is stable and upper limits of no rmal. The lung volumes are redemonstrated. Osseous structures are demineralized with scattered sclero tic foci consistent with known metastatic disease. Several old posterior posterior lateral left rib f ractures are seen. Metallic hardware from left shoulder surgery is partially imaged. IMPRESSION: Overall stable findings, chronic changes without acute pulmonary process
[2018-04-02] MEDS: SODIUM CHLORIDE 0.9% 1,000 ML IV SCH ×2 (15:45→22:00)
[2018-04-02] MEDS: MORPHINE SULFATE ER 15 MG TABLET PO SCH ×2 (15:49→21:57)
[2018-04-02] MEDS: PANTOPRAZOLE 40 MG TABLET PO SCH (15:50)
[2018-04-02] MEDS ORDERED: DEXAMETHASONE 4 MG TAB PO SCH (16:00)
[2018-04-02] MEDS ORDERED: ALPRAZolam 0.25 MG TAB PO PRN (18:17)
[2018-04-02] MEDS: DEXAMETHASONE SOD PHOSPHATE 4 MG/ML 1 ML VIAL IV SCH ×2 (18:45→23:54)
[2018-04-02] MEDS: RIVAROXABAN 20 MG TAB PO SCH (21:59)
[2018-04-02] MEDS: GABAPENTIN 100 MG CAP PO SCH (21:59)
--- NOTE | 2018-04-02 22:34 | HP ---
HISTORY AND PHYSICAL DATE OF SERVICE: 04/02/2018 CHIEF COMPLAINT: Bilateral leg weakness and severe pain. HISTORY OF PRESENT ILLNESS: This 52-year-old woman with a past medical history of multiple medical problems, metastatic breast cancer, history of fractured radius, history of migraine, history of DJD being followed by Dr. Parnell in the outpatient setting also receiving radiation therapy. The patient was recently admitted to [facility] with complaints of increased weakness and lethargy. Extensive MRI scans did not show any significant spinal cord compression. Extensive metastasis was noted. The patient responded to IV Decadron. The patient went home. The patient had progressive weakness. The patient unable to get up from bathroom toilet. The patient also had difficulty in urination. The patient also had significant pain. The patient has been apparently on the road for 11 or 12 hours a day. Because of the multiple difficulties, the patient came to [facility] and admitted to the hospital for further evaluation and treatment. There is no history of fever, rigors or chills. No history of headache, loss of consciousness, seizures. PAST MEDICAL HISTORY: History of breast cancer, history of migraine, history of chronic pain syndrome, cholecystectomy. MEDICATIONS: Prior to admission include home medications are: 1. Oxycodone 10 mg q.4h p.r.n. 2. Benadryl 25 mg q.i.d. p.r.n. 3. Restoril 15 mg q.h.s. p.r.n. 4. Tamoxifen 20 mg p.o. daily. 5. Senokot-S 1 tablet p.o. daily. 6. Xarelto 20 mg q.h.s. 7. Protonix 40 mg b.i.d. 8. Multivitamins one p.o. daily. 9. MS Contin 30 mg q.8 hours. 10.Robaxin 1000 mg q8h p.r.n. 11.Magnesium oxide 400 mg p.o. daily. 12.Neurontin 300 mg p.o. b.i.d. 13.EpiPen 0.3 mg p.r.n. 14.Dexamethasone 4 mg q.8h p.r.n. 15.Zyrtec 10 mg daily p.r.n. 16.Celebrex 200 mg p.o. b.i.d. 17.Citracal 1 p.o. daily. 18.Aspirin 320 mg p.o. daily. 19.Arimidex 1 mg p.o. daily. ALLERGIES: AVOCADO, IODINATED CONTRAST, LATEX, SHELLFISH, WHEAT, COCONUT, ARTIFICIAL SWEETENER. FAMILY HISTORY: Family history unable to obtain. The patient is adopted. SOCIAL HISTORY: Previous history of smoking. No history of current smoking or alcohol intake. REVIEW OF SYSTEMS: ENT: No diminished hearing or diminished vision. CARDIOVASCULAR: No angina or palpitations. RESPIRATORY: As mentioned earlier. GI: As mentioned earlier. as mentioned earlier. Central nervous system: As mentioned earlier. Allergy/Immunology: No asthma or hay fever. MUSCULOSKELETAL: As mentioned earlier. HEMATOLOGY/ONCOLOGY: As mentioned earlier. ENDOCRINE: No history of diabetes or hypothyroidism. CONSTITUTIONAL: As mentioned earlier. Dermatology: Negative. Rheumatology: Negative. Psychiatry: As mentioned earlier. PHYSICAL EXAM: GENERAL: Alert, oriented times three. VITAL SIGNS: Pulse 106, blood pressure 130/60, respirations 18, temperature 98.9, pulse ox 98% on room air. HEENT: Conjunctivae normal. Oral mucosa moist. NECK is no jugular venous distention. No carotid bruit. No lymph node enlargement. CARDIOVASCULAR: S1, S2 muffled. RESPIRATORY: Breath sounds diminished in the bases. No rhonchi. No crackles. ABDOMEN: Soft, nontender. No mass palpable. LEGS: No edema. No swelling. NERVOUS SYSTEM: Higher functions as mentioned earlier. Cranial nerves 2nd thru 12 grossly intact. Moves all 4 limbs. No nystagmus. No diplopia. Otherwise diffuse weakness upper limbs and significant lower limbs also present. Some pain also and movement also present. Reflexes increased. Plantars equivocal. Skin no ulcer. A few rashes present. Lymphatics: No lymph nodes palpable in the neck, axillae or groin. Joints: No active deforming arthropathy. LABORATORY DATA: WBC 4.7, hemoglobin 11.1. ASSESSMENT: 1. 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 2. Carcinoma of the breast with metastasis. 3. Diffuse skeletal involvement thoracic spine involvement and fracture of the lower thoracic and lumbar spine with compression deformities including T10, 11, L1, L3, L5. 4. History of cholecystectomy. 5. Anemia secondary to malignancy. 6. Increased alkaline phosphatase. 7. Gait dysfunction severe. RECOMMENDATIONS AND DISCUSSION: In this 52-year-old woman who presented with multiple complex medical issues, we will monitor the patient closely, continue the current medications, management and symptomatic treatment. I recommend intravenous steroids. I would also recommend PT/OT evaluation. I would also recommend continue consult Dr. Aldrich and Radiation Oncology that the patient has been recommended. Symptomatic treatment of the pain is being recommended. PT/OT evaluation. director professional services evaluation to evaluate the home situation. Possible ECF rehab is also recommended. Overall prognosis extremely guarded because of multiple complex medical issues. Further recommendations to follow. Copy of dictation is being forwarded to Dr. Parnell who is the primary care physician. MMODL / IJN: [id number] /
[2018-04-03] MEDS: DEXAMETHASONE SOD PHOSPHATE 4 MG/ML 1 ML VIAL IV SCH ×4 (06:23→23:41)
[2018-04-03] MEDS: MORPHINE SULFATE ER 15 MG TABLET PO SCH ×3 (06:23→23:39)
[2018-04-03 08:06] LABS: Anisocytosis Slight; Basophils % (A) 0 %; Eosinophils % (A) 1 %; HCT 28.6 % (34.0-46.0); Lymphocytes # (A) 0.3 k/uL (1.0-4.8); Lymphocytes % (A) 9 %; MCH 30.8 pg (25.0-35.0); MCV 96.2 fL (80.0-100.0); Macrocytosis Slight; Mean Platelet Volume 6.3; Monocytes # (A) 0.1 k/uL (0-1.0); Monocytes % (A) 2 %; Neutrophils # (A) 3.3 k/uL (1.3-7.7); Neutrophils % (A) 88 %; Platelet Count 406 k/uL (150-450); RBC 2.98 m/uL (3.80-5.40); RDW 18.6 % (11.5-15.5); WBC 3.8 k/uL (3.8-10.6)
[2018-04-03 08:10] LABS: Anion Gap 4 mmol/L; Blood Urea Nitrogen 12 mg/dL (7-17); Calcium 8.6 mg/dL (8.4-10.2); Carbon Dioxide 30 mmol/L (22-30); Chloride 105 mmol/L (98-107); Glucose 143 mg/dL (74-99); Potassium 4.3 mmol/L (3.5-5.1); Sodium 139 mmol/L (137-145)
[2018-04-03 08:12] LABS: HGB 9.2 gm/dL (11.4-16.0)
[2018-04-03] MEDS: GABAPENTIN 100 MG CAP PO SCH ×2 (08:57→22:15)
[2018-04-03] MEDS: ANASTROZOLE 1 MG TAB PO SCH (08:58)
[2018-04-03] MEDS: TAMOXIFEN 10 MG TAB PO SCH ×2 (08:58→09:08)
[2018-04-03] MEDS: ASPIRIN 325 MG TAB PO SCH (08:58)
[2018-04-03] MEDS: PANTOPRAZOLE 40 MG TABLET PO SCH ×2 (08:58→17:51)
[2018-04-03] MEDS: MAGNESIUM OXIDE 400 MG TAB PO SCH (08:59)
[2018-04-03] MEDS ORDERED: VITAMIN D3 PO SCH (09:00)
[2018-04-03] MEDS ORDERED: VIT K1 PO SCH (09:00)
[2018-04-03] MEDS ORDERED: PANTOPRAZOLE 40 MG/10 ML VIAL IV SCH (09:00)
[2018-04-03] MEDS ORDERED: CALCIUM CARB PO SCH (09:00)
[2018-04-03] MEDS: SENNOSIDES-DOCUSATE SODIUM 1 EACH TAB PO SCH (09:03)
[2018-04-03] MEDS: MORPHINE SULFATE 4 MG/ML SYRINGE IV PRN (10:02)
[2018-04-03] MEDS: MELOXICAM 7.5 MG TAB PO SCH (10:36)
[2018-04-03] MEDS: MULTIVITAMINS, THERA 1 EACH TAB PO SCH (13:10)
[2018-04-03] MEDS: diphenhydrAMINE 25 MG CAP PO PRN (13:13)
--- NOTE | 2018-04-03 16:50 | PN ---
PROGRESS NOTE DATE OF SERVICE: 04/03/2018 This 52-year-old woman with a past medical history of multiple medical problems including metastatic breast cancer, admitted with bilateral leg weakness and pain and back pain. The patient also receiving radiotherapy also. The patient is also on oral chemotherapy. Multiple consultants are following the patient closely. The recent MRI showed multiple abnormalities. PAST MEDICAL HISTORY: Reviewed. REVIEW OF SYSTEMS: CARDIOVASCULAR: No angina or palpitations. RESPIRATORY: As mentioned earlier. GI: No nausea or vomiting. no nausea or vomiting. Central nervous system: As mentioned earlier. CURRENT MEDICATIONS: Reviewed and include: 1. Tylenol 650 q.6h p.r.n. 2. Xanax 0.5 t.i.d. 3. Arimidex 1 mg. 4. Aspirin 320 mg daily. 5. Decadron 8 mg q.6h p.r.n. 6. Benadryl 25 mg q.i.d. 8. Neurontin 100 mg b.i.d. 9. Toradol 15 q.6 p.r.n. 10.Magnesium oxide. 11.Mobic. 12.Robaxin. 13.Morphine sulfate. 14.MS Contin. 15.Narcan. 16.Zofran. 17.Percocet p.r.n. 18.Xarelto. 19.Tamoxifen. 20.Restoril. PHYSICAL EXAM: Patient is alert, oriented x3. The pulse is 74, blood pressure 118/59, respiration 18, temperature 97.2, pulse ox 98% on room air. HEENT: Conjunctivae normal. Oral mucosa moist. Neck is no jugular venous distention. No carotid bruit. No lymph node enlargement. Cardiovascular: S1, S2 muffled. RESPIRATORY: Breath sounds diminished in the bases. Scattered rhonchi. No crackles. ABDOMEN: Soft, nontender. No mass palpable. Legs: No edema. No swelling. NERVOUS SYSTEM: Higher functions as mentioned earlier. Moves all 4 limbs. Mild diffuse weakness. Lymphatics: No lymph nodes palpable in the neck, axillae or groin. SKIN: No ulcer, rash or bleeding. Otherwise paraparesis also present. LABS: WBC 3.8, hemoglobin is 9.2. The CMP noted. ASSESSMENT: 1. 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 2. Gait dysfunction. 3. Severe back pain. Failure of outpatient treatment. 4. Carcinoma of the breast with metastasis. 5. Diffuse skeletal involvement of the lumbosacral spine with fractures of the lower thoracic lumbar spine compression deformities including T10, T11, L1, L3 and L5. 6. History of cholecystectomy. 7. Anemia secondary to malignancy. 8. Increased alkaline phosphatase. 9. Gait dysfunction severe. 10.FULL CODE. RECOMMENDATIONS AND DISCUSSION: In this 52-year-old woman who presented with multiple complex medical issues, we will monitor the patient closely, continue the current medications, management and pain medications. See orders for details. I would also recommend continued IV steroids, monitor blood sugars closely. Other than that, I would also recommend to continue to monitor. PT/OT evaluation, possible ECF rehab. Continue the radiation. Guarded prognosis. Further recommendations to follow. MMODL / IJN: [id number] / MTDD
[2018-04-03 17:28] LABS: Glucose,Whole Blood 209 mg/dL (75-99)
[2018-04-03] MEDS: INSULIN ASPART 100 UNIT/ML 1 ML 10 ML VIAL SQ SCH ×2 (17:51→22:15)
[2018-04-03] MEDS: SODIUM CHLORIDE 0.9% 1,000 ML IV SCH ×2 (18:20→22:18)
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
[2018-04-03 20:23] LABS: Glucose,Whole Blood 168 mg/dL (75-99)
[2018-04-03] MEDS: RIVAROXABAN 20 MG TAB PO SCH (22:15)
[2018-04-03 22:19] LABS: Hemoglobin A1C 5.9 % (4.0-6.0)
[2018-04-04] MEDS: MORPHINE SULFATE ER 15 MG TABLET PO SCH ×3 (06:21→23:45)
[2018-04-04] MEDS: SODIUM CHLORIDE 0.9% 1,000 ML IV SCH ×2 (06:22→15:17)
[2018-04-04] MEDS: DEXAMETHASONE SOD PHOSPHATE 4 MG/ML 1 ML VIAL IV SCH ×4 (07:03→23:46)
[2018-04-04 07:24] LABS: Glucose,Whole Blood 150 mg/dL (75-99)
[2018-04-04] MEDS: INSULIN ASPART 100 UNIT/ML 1 ML 10 ML VIAL SQ SCH ×4 (08:39→21:51)
[2018-04-04] MEDS: PANTOPRAZOLE 40 MG TABLET PO SCH ×2 (08:40→17:31)
[2018-04-04] MEDS: GABAPENTIN 100 MG CAP PO SCH ×2 (08:40→21:51)
[2018-04-04] MEDS: SENNOSIDES-DOCUSATE SODIUM 1 EACH TAB PO SCH (08:40)
[2018-04-04] MEDS: MAGNESIUM OXIDE 400 MG TAB PO SCH (08:40)
[2018-04-04] MEDS: ANASTROZOLE 1 MG TAB PO SCH (08:41)
[2018-04-04] MEDS: MELOXICAM 7.5 MG TAB PO SCH (08:41)
[2018-04-04] MEDS: ASPIRIN 325 MG TAB PO SCH (08:41)
[2018-04-04] MEDS: TAMOXIFEN 10 MG TAB PO SCH (08:41)
[2018-04-04 08:55] LABS: Anisocytosis Slight; Basophils % (A) 0 %; Eosinophils % (A) 0 %; HGB 9.3 gm/dL (11.4-16.0); Lymphocytes # (A) 0.3 k/uL (1.0-4.8); Lymphocytes % (A) 6 %; MCHC 30.9 g/dL (31.0-37.0); Macrocytosis Slight; Mean Platelet Volume 6.7; Monocytes # (A) 0.1 k/uL (0-1.0); Monocytes % (A) 3 %; Neutrophils # (A) 3.7 k/uL (1.3-7.7); Neutrophils % (A) 91 %; Platelet Count 445 k/uL (150-450); RDW 18.3 % (11.5-15.5); WBC 4.1 k/uL (3.8-10.6)
[2018-04-04 09:19] LABS: Anion Gap 6 mmol/L; Blood Urea Nitrogen 17 mg/dL (7-17); Calcium 8.6 mg/dL (8.4-10.2); Carbon Dioxide 30 mmol/L (22-30); Chloride 105 mmol/L (98-107); Glucose 132 mg/dL (74-99); Potassium 4.4 mmol/L (3.5-5.1); Sodium 141 mmol/L (137-145)
[2018-04-04 11:13] LABS: Glucose,Whole Blood 219 mg/dL (75-99)
[2018-04-04] MEDS: MORPHINE SULFATE 4 MG/ML SYRINGE IV PRN (13:01)
[2018-04-04] MEDS: MULTIVITAMINS, THERA 1 EACH TAB PO SCH (13:02)
--- NOTE | 2018-04-04 15:12 | PN ---
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 No chest pain. No palpitations. No fever. The patient is started on local radiation at this time. PHYSICAL EXAM: Alert and oriented x3, pulse 80, blood pressure 138/64, respiration 19, temperature 97.2, pulse ox 94% on room air. HEENT: Conjunctivae normal, oral mucosa moist. Neck is no jugular venous distention, no carotid bruit, no lymph node enlargement. CARDIOVASCULAR: S1, S2, muffled. RESPIRATORY SYSTEM: Breath sounds diminished at the bases. A few scattered rhonchi. No crackles. ABDOMEN: Soft, nontender. LEGS: No edema, no swelling. NERVOUS SYSTEM: No focal deficits. LABS: WBC is 4.2, hemoglobin is 9.3. ASSESSMENT: 1. 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 2. Gait dysfunction. 3. Severe back pain, failure of outpatient treatment. 4. Carcinoma of the breast with metastasis. 5. Diffuse skeletal involvement of the lumbosacral spine with fractures of the lower thoracic spine compressing deformity including T10, L1, L3, L5. 6. History of cholecystectomy. 7. Anemia secondary to malignancy. 8. Increased alkaline phosphatase. 9. Gait dysfunction. 10.FULL CODE. RECOMMENDATION: Continue with the current management. Continue with steroids, PT, OT evaluation, radiation. Otherwise, Orthopedics already evaluated the patient recently in the outpatient setting. Will closely follow with Hematology, Oncology, PT, OT evaluation. Prognosis guarded. Further recommendations to follow. MMODL / IJN: [id number] /
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
[2018-04-04] MEDS ORDERED: POLYETHYLENE GLYCOL 3350 17 GM POWD.PACK PO PRN (17:19)
--- NOTE | 2018-04-04 17:24 | P.PN ---
Subjective Progress Note Date: 04/04/18 Principal diagnosis: intractable pain from malignancy Pt seen in f/u, pain is better controlled today, she has started XRT. Denies nausea, MONICA, constipation or diarrhea. She is requiring assistive device to ambulate due to lower extremity weakness. Objective - Vital Signs Vital signs: Vital Signs Temp 97.5 F L 04/04/18 12:17 Pulse 86 04/04/18 12:17 Resp 19 04/04/18 12:17 BP 134/68 04/04/18 12:17 Pulse Ox 91 L 04/04/18 12:17 Intake & Output 04/03/18 04/04/18 04/04/18 18:59 06:59 18:59 Intake Total 600 590 Balance 600 590 Intake: Oral 600 590 Other: Voiding Method Bedside Commode Bedside Commode Bedside Commode # Voids 3 3 3 - Labs CBC & Chem 7: 04/04/18 08:40 04/04/18 08:40 Labs: Abnormal Lab Results - Last 24 Hours (Table) 04/03/18 04/03/18 04/04/18 Range/Units 17:26 20:22 07:20 RBC (3.80-5.40) m/uL Hgb (11.4-16.0) gm/dL Hct (34.0-46.0) % MCHC (31.0-37.0) g/dL RDW (11.5-15.5) % Lymphocytes # (1.0-4.8) k/uL Glucose (74-99) mg/dL POC Glucose (mg/dL) 209 H 168 H 150 H (75-99) mg/dL 04/04/18 04/04/18 04/04/18 Range/Units 08:40 08:40 11:12 RBC 3.10 L (3.80-5.40) m/uL Hgb 9.3 L (11.4-16.0) gm/dL Hct 30.0 L (34.0-46.0) % MCHC 30.9 L (31.0-37.0) g/dL RDW 18.3 H (11.5-15.5) % Lymphocytes # 0.3 L (1.0-4.8) k/uL Glucose 132 H (74-99) mg/dL POC Glucose (mg/dL) 219 H (75-99) mg/dL Microbiology - Last 24 Hours (Table) 04/02/18 11:25 Urine Culture - Final Urine,Voided Assessment and Plan (1) Impaired mobility and ADLs Narrative/Plan: Pt states plan is to go to rehab for a period of time after DC. She has most assistive devices she needs at home. If she needs others Case Mgmt explained to me that those assistive devices will be ordered for pt by the rehab facility. Current Visit: Yes Status: Acute Priority: High Code(s): Z74.09 - OTHER REDUCED MOBILITY SNOMED Code(s): 935037614 (2) Intractable pain Narrative/Plan: Cont steroids, plan for taper as pt completes XRT. Cont analgesics. Stool softeners sched/lax PRN prevention of narcotic induced constipation Current Visit: Yes Status: Acute Priority: High Code(s): R52 - PAIN, UNSPECIFIED SNOMED Code(s): 68897725 (3) Metastatic breast cancer Narrative/Plan: Pt will continue Ibrance and Arimidex Current Visit: Yes Status: Acute Priority: High Code(s): C50.919 - MALIGNANT NEOPLASM OF UNSP SITE OF UNSPECIFIED FEMALE BREAST SNOMED Code(s): 139504703
[2018-04-04 17:25] LABS: Glucose,Whole Blood 146 mg/dL (75-99)
[2018-04-04] MEDS: oxyCODONE-APAP 10-325MG 1 EACH TAB PO PRN (17:32)
[2018-04-04 20:26] LABS: Glucose,Whole Blood 133 mg/dL (75-99)
[2018-04-04] MEDS: RIVAROXABAN 20 MG TAB PO SCH (21:51)
[2018-04-05] MEDS: SODIUM CHLORIDE 0.9% 1,000 ML IV SCH ×3 (02:45→23:41)
[2018-04-05] MEDS: MORPHINE SULFATE ER 15 MG TABLET PO SCH ×3 (05:55→23:05)
[2018-04-05 07:27] LABS: Glucose,Whole Blood 125 mg/dL (75-99)
[2018-04-05] MEDS: INSULIN ASPART 100 UNIT/ML 1 ML 10 ML VIAL SQ SCH ×4 (07:52→23:45)
[2018-04-05 08:08] LABS: Anisocytosis Slight; Basophils % (A) 0 %; Eosinophils % (A) 0 %; HGB 10.2 gm/dL (11.4-16.0); Hypochromasia Slight; Lymphocytes # (A) 0.3 k/uL (1.0-4.8); Lymphocytes % (A) 5 %; MCH 29.9 pg (25.0-35.0); MCV 99.7 fL (80.0-100.0); Macrocytosis Moderate; Mean Platelet Volume 6.6; Monocytes # (A) 0.3 k/uL (0-1.0); Monocytes % (A) 5 %; Neutrophils % (A) 89 %; Platelet Count 487 k/uL (150-450); RBC 3.41 m/uL (3.80-5.40); RDW 18.5 % (11.5-15.5); WBC 5.5 k/uL (3.8-10.6)
[2018-04-05 08:49] LABS: Anion Gap 8 mmol/L; Blood Urea Nitrogen 22 mg/dL (7-17); Calcium 8.7 mg/dL (8.4-10.2); Carbon Dioxide 30 mmol/L (22-30); Chloride 103 mmol/L (98-107); Glucose 115 mg/dL (74-99); Potassium 4.3 mmol/L (3.5-5.1); Sodium 141 mmol/L (137-145)
[2018-04-05] MEDS: DEXAMETHASONE SOD PHOSPHATE 4 MG/ML 1 ML VIAL IV SCH ×4 (09:38→23:05)
[2018-04-05] MEDS: ASPIRIN 325 MG TAB PO SCH (09:39)
[2018-04-05] MEDS: PANTOPRAZOLE 40 MG TABLET PO SCH ×2 (09:39→17:50)
[2018-04-05] MEDS: MELOXICAM 7.5 MG TAB PO SCH (09:40)
[2018-04-05] MEDS: ANASTROZOLE 1 MG TAB PO SCH (09:41)
[2018-04-05] MEDS: GABAPENTIN 100 MG CAP PO SCH ×2 (09:42→23:05)
[2018-04-05] MEDS: MULTIVITAMINS, THERA 1 EACH TAB PO SCH (09:42)
[2018-04-05] MEDS: TAMOXIFEN 10 MG TAB PO SCH (09:42)
[2018-04-05] MEDS: BISACODYL 5 MG TABLET.DR PO SCH (09:48)
--- NOTE | 2018-04-05 11:15 | P.PN ---
Subjective Progress Note Date: 04/05/18 Principal diagnosis: intractable pain from malignancy Pt seen in f/u, she is tolerating XRT, her current analgesic regimen along with steroids is controlling pain. She has moderate/severe lower extremity weakness , requires assistive devices for minimal mobility. Objective - Vital Signs Vital signs: Vital Signs Temp 97.4 F L 04/05/18 05:00 Pulse 88 04/05/18 05:00 Resp 16 04/05/18 05:00 BP 127/82 04/05/18 05:00 Pulse Ox 97 04/05/18 05:00 Intake & Output 04/04/18 04/05/18 04/05/18 18:59 06:59 18:59 Other: Voiding Method Bedside Commode Bedside Commode # Voids 3 3 - Constitutional General appearance: Present: average body habitus, cooperative, no acute distress - EENT Eyes: Present: anicteric sclerae - Respiratory Respiratory: bilateral: CTA - Cardiovascular Rhythm: regular Heart sounds: normal: S1, S2 Abnormal Heart Sounds: Absent: systolic murmur, diastolic murmur, rub, S3 Gallop , S4 Gallop, click, other - Gastrointestinal General gastrointestinal: Present: normal bowel sounds, soft - Integumentary Integumentary Comment(s): severe flea bites, all over body, scabs noted - Neurologic Neurologic: Present: CNII-XII intact - Musculoskeletal Musculoskeletal: Present: generalized weakness - Psychiatric Psychiatric: Present: A&O x's 3, appropriate affect, intact judgment & insight - Labs CBC & Chem 7: 04/05/18 07:54 04/05/18 07:54 Labs: Abnormal Lab Results - Last 24 Hours (Table) 04/04/18 04/04/18 04/04/18 Range/Units 11:12 17:24 20:25 RBC (3.80-5.40) m/uL Hgb (11.4-16.0) gm/dL MCHC (31.0-37.0) g/dL RDW (11.5-15.5) % Plt Count (150-450) k/uL Lymphocytes # (1.0-4.8) k/uL BUN (7-17) mg/dL Glucose (74-99) mg/dL POC Glucose (mg/dL) 219 H 146 H 133 H (75-99) mg/dL 04/05/18 04/05/18 04/05/18 Range/Units 07:25 07:54 07:54 RBC 3.41 L (3.80-5.40) m/uL Hgb 10.2 L (11.4-16.0) gm/dL MCHC 30.0 L (31.0-37.0) g/dL RDW 18.5 H (11.5-15.5) % Plt Count 487 H (150-450) k/uL Lymphocytes # 0.3 L (1.0-4.8) k/uL BUN 22 H (7-17) mg/dL Glucose 115 H (74-99) mg/dL POC Glucose (mg/dL) 125 H (75-99) mg/dL Assessment and Plan (1) Impaired mobility and ADLs Narrative/Plan: Pt states plan is to go to rehab for a period of time after DC due to weakness and needs to learn how to use her assistive devices. Current Visit: Yes Status: Acute Priority: High Code(s): Z74.09 - OTHER REDUCED MOBILITY SNOMED Code(s): 432118378 (2) Intractable pain Narrative/Plan: Pain is from malignancy. Better controlled now. Pt needs to continue steroids and taper slowly, complete radiation Current Visit: Yes Status: Acute Priority: High Code(s): R52 - PAIN, UNSPECIFIED SNOMED Code(s): 42084422 (3) Metastatic breast cancer Narrative/Plan: Cont Ibrance and AI. Follow up with Primary Oncologist Dr. Hope Current Visit: Yes Status: Acute Priority: High Code(s): C50.919 - MALIGNANT NEOPLASM OF UNSP SITE OF UNSPECIFIED FEMALE BREAST SNOMED Code(s): 431426214
[2018-04-05 11:23] LABS: Glucose,Whole Blood 113 mg/dL (75-99)
[2018-04-05] MEDS: MAGNESIUM OXIDE 400 MG TAB PO SCH (12:17)
[2018-04-05] MEDS: oxyCODONE-APAP 10-325MG 1 EACH TAB PO PRN (12:21)
[2018-04-05] MEDS: HYDROCORTISONE 1% CREAM 30 GM TUBE TOPICAL PRN (16:14)
--- NOTE | 2018-04-05 16:52 | PN ---
PROGRESS NOTE DATE OF SERVICE: 04/05/2018. 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 Patient is receiving radiation therapy at this time. Hematology/Oncology as well as Radiation Oncology are following the patient closely. No chest pain. No palpitations. No fever. EXAM: Alert and oriented x3. Pulse 88, blood pressure 127/82, respirations 16, temperature 97.4, pulse ox 97% on room air. HEENT: Conjunctivae normal. Oral mucosa moist. NECK: No jugular venous distention. No carotid bruits. No lymph node enlargement. CARDIOVASCULAR: S1, S2 muffled. RESPIRATORY: Breath sounds diminished in the bases. No rhonchi. No crackles. ABDOMEN: Soft, nontender. LEGS: No edema. NERVOUS SYSTEM: Mild diffuse weakness. LABS: WBC 5.5, hemoglobin is 10.2. ASSESSMENT: 1. 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 2. Gait dysfunction. 3. Severe back pain with failure of outpatient treatment. 4. Carcinoma of the breast with metastasis. 5. Diffuse skeletal involvement of the lumbosacral spine with a fracture of the lower thoracic spine and compression deformity, including T10, L1, L3, L5. 6. History of cholecystectomy. 7. Anemia secondary to malignancy. 8. Increased alkaline phosphatase. 9. FULL CODE. RECOMMENDATIONS AND DISCUSSION: Recommend to continue current medical management and symptomatic treatment. Otherwise at this time, I recommend PT, OT evaluation, possible ECF rehab. We will also closely follow with Radiation Oncology. Further recommendations to follow. MMODL / IJN: [id number] /
[2018-04-05 17:17] LABS: Glucose,Whole Blood 151 mg/dL (75-99)
[2018-04-05 20:58] LABS: Glucose,Whole Blood 179 mg/dL (75-99)
[2018-04-05] MEDS: RIVAROXABAN 20 MG TAB PO SCH (23:05)
[2018-04-06] MEDS: MORPHINE SULFATE ER 15 MG TABLET PO SCH ×3 (05:49→23:34)
[2018-04-06] MEDS: DEXAMETHASONE SOD PHOSPHATE 4 MG/ML 1 ML VIAL IV SCH ×4 (05:51→23:35)
[2018-04-06] MEDS: SODIUM CHLORIDE 0.9% 1,000 ML IV SCH (05:52)
[2018-04-06 06:58] LABS: Glucose,Whole Blood 137 mg/dL (75-99)
[2018-04-06] MEDS: GABAPENTIN 100 MG CAP PO SCH ×2 (08:08→21:06)
[2018-04-06] MEDS: MELOXICAM 7.5 MG TAB PO SCH (08:08)
[2018-04-06] MEDS: BISACODYL 5 MG TABLET.DR PO SCH (08:08)
[2018-04-06] MEDS: ANASTROZOLE 1 MG TAB PO SCH (08:08)
[2018-04-06] MEDS: ASPIRIN 325 MG TAB PO SCH (08:08)
[2018-04-06] MEDS: oxyCODONE-APAP 10-325MG 1 EACH TAB PO PRN ×2 (08:09→19:30)
[2018-04-06] MEDS: TAMOXIFEN 10 MG TAB PO SCH (08:10)
[2018-04-06] MEDS: PANTOPRAZOLE 40 MG TABLET PO SCH ×2 (08:10→18:52)
[2018-04-06] MEDS: INSULIN ASPART 100 UNIT/ML 1 ML 10 ML VIAL SQ SCH ×4 (08:10→21:06)
[2018-04-06] MEDS: MAGNESIUM OXIDE 400 MG TAB PO SCH (08:11)
[2018-04-06 08:14] LABS: Anisocytosis Slight; Basophils % (A) 0 %; Eosinophils % (A) 0 %; HCT 30.9 % (34.0-46.0); HGB 9.7 gm/dL (11.4-16.0); Hypochromasia Slight; Lymphocytes # (A) 0.3 k/uL (1.0-4.8); Lymphocytes % (A) 6 %; MCH 30.7 pg (25.0-35.0); MCHC 31.4 g/dL (31.0-37.0); MCV 97.7 fL (80.0-100.0); Macrocytosis Slight; Mean Platelet Volume 6.6; Monocytes # (A) 0.2 k/uL (0-1.0); Monocytes % (A) 5 %; Neutrophils # (A) 4.1 k/uL (1.3-7.7); Neutrophils % (A) 88 %; Platelet Count 462 k/uL (150-450); RBC 3.16 m/uL (3.80-5.40); RDW 18.6 % (11.5-15.5); WBC 4.7 k/uL (3.8-10.6)
[2018-04-06 08:29] LABS: Anion Gap 6 mmol/L; Blood Urea Nitrogen 23 mg/dL (7-17); Calcium 8.3 mg/dL (8.4-10.2); Carbon Dioxide 29 mmol/L (22-30); Chloride 105 mmol/L (98-107); Glucose 120 mg/dL (74-99); Potassium 4.6 mmol/L (3.5-5.1); Sodium 140 mmol/L (137-145)
[2018-04-06 11:24] LABS: Glucose,Whole Blood 169 mg/dL (75-99)
[2018-04-06] MEDS: MULTIVITAMINS, THERA 1 EACH TAB PO SCH (13:17)
[2018-04-06] MEDS: THIAMINE 100 MG TAB PO SCH (13:40)
[2018-04-06] MEDS: FOLIC ACID 1 MG TAB PO SCH (13:40)
--- NOTE | 2018-04-06 15:02 | PN ---
PROGRESS NOTE DATE OF SERVICE: 04/06/2018 This 52-year-old woman was admitted with paraparesis and weakness, is being closely monitored. The weakness is improving at this time. The patient also receiving radiation for sacral metastasis. PT, OT evaluating the patient also. Patient had multiple skin lesions also noted. No chest pain. No palpitations. No fever. PHYSICAL EXAM: Alert and oriented x3. Pulse is 92, blood pressure 120/72, respiration 18, temperature 97.4, pulse ox 100% on room air. HEENT: Conjunctivae normal. Oral mucosa moist. Neck is no jugular venous distention. No carotid bruit. No lymph node enlargement. CARDIOVASCULAR SYSTEM: S1, S2, muffled. RESPIRATORY: Breath sounds diminished at the bases, no rhonchi, no crackles. ABDOMEN: Soft, nontender. LEGS: No edema, no swelling. NERVOUS SYSTEM: Mild diffuse weakness. LYMPHATICS: No lymph node enlargement in the neck or axillae. SKIN: Rash present as mentioned. LABS: WBC 4.6, hemoglobin is 9.7, glucose 120, calcium is 8.3. ASSESSMENT: 1. Paraparesis secondary to possible meningeal carcinomatosis or metastatic breast cancer possibly. 2. Gait dysfunction. 3. Severe back pain with failure of outpatient treatment. 4. Carcinoma of breast with metastasis, on radiation therapy. 5. Diffuse skeletal involvement of the lumbosacral spine with a fracture of the lower thoracic spine and compression deformities including T10, L1, L3, L5. 6. History of cholecystectomy. 7. Anemia, secondary to malignancy. 8. Increased alkaline phosphatase. 9. FULL CODE. RECOMMENDATION: Recommend to continue current medication and symptomatic. Continue with the radiation. Add Flexeril to the regimen. Continue the pain medications. Otherwise, I would also recommend close follow up and repeat labs and PT, OT evaluation. Continue with the Xarelto. Possible ECF rehab. Guarded prognosis. Further recommendations to follow. See orders for further details. MMODL / IJN: [id number] /
[2018-04-06 17:41] LABS: Glucose,Whole Blood 191 mg/dL (75-99)
--- NOTE | 2018-04-06 18:49 | P.PN ---
Subjective Progress Note Date: 04/06/18 Principal diagnosis: intractable pain from malignancy Pt pain is fairly well controlled, she has started radiation, she is having muscle cramps, she continues to have terrible itching from insect bites. No current fevers, nausea, MONICA, diarrhea or constipation. Objective - Vital Signs Vital signs: Vital Signs Temp 97.5 F L 04/06/18 05:00 Pulse 92 04/06/18 05:00 Resp 18 04/06/18 05:00 BP 125/72 04/06/18 05:00 Pulse Ox 100 04/06/18 05:00 Intake & Output 04/05/18 04/06/18 04/06/18 18:59 06:59 18:59 Intake Total 1820 Balance 1820 Weight 62.596 kg Intake: Oral 1820 Other: Voiding Method Bedside Commode Toilet Bedside Commode # Voids 4 2 # Bowel Movements 2 - Constitutional General appearance: Present: average body habitus, cooperative, mild distress - EENT Eyes: Present: anicteric sclerae - Respiratory Details: respirations even and unlabored - Cardiovascular Rhythm: regular - Gastrointestinal General gastrointestinal: Present: soft - Integumentary Integumentary Comment(s): multiple insect bites on body - Neurologic Neurologic: Present: CNII-XII intact - Musculoskeletal Musculoskeletal: Present: generalized weakness - Psychiatric Psychiatric: Present: A&O x's 3, appropriate affect, intact judgment & insight - Labs CBC & Chem 7: 04/06/18 07:33 04/06/18 07:33 Labs: Abnormal Lab Results - Last 24 Hours (Table) 04/05/18 04/06/18 04/06/18 Range/Units 20:56 06:57 07:33 RBC 3.16 L (3.80-5.40) m/uL Hgb 9.7 L (11.4-16.0) gm/dL Hct 30.9 L (34.0-46.0) % RDW 18.6 H (11.5-15.5) % Plt Count 462 H (150-450) k/uL Lymphocytes # 0.3 L (1.0-4.8) k/uL BUN (7-17) mg/dL Glucose (74-99) mg/dL POC Glucose (mg/dL) 179 H 137 H (75-99) mg/dL Calcium (8.4-10.2) mg/dL 04/06/18 04/06/18 04/06/18 Range/Units 07:33 11:22 17:40 RBC (3.80-5.40) m/uL Hgb (11.4-16.0) gm/dL Hct (34.0-46.0) % RDW (11.5-15.5) % Plt Count (150-450) k/uL Lymphocytes # (1.0-4.8) k/uL BUN 23 H (7-17) mg/dL Glucose 120 H (74-99) mg/dL POC Glucose (mg/dL) 169 H 191 H (75-99) mg/dL Calcium 8.3 L (8.4-10.2) mg/dL Assessment and Plan (1) Impaired mobility and ADLs Narrative/Plan: Pt states plan is to go to rehab for a period of time after DC due to weakness and needs to learn how to use her assistive devices. Current Visit: Yes Status: Acute Priority: High Code(s): Z74.09 - OTHER REDUCED MOBILITY SNOMED Code(s): 171373684 (2) Intractable pain Narrative/Plan: Pain is from malignancy. Continue steroids, taper slowly, pt has Rx for steroids at home. Complete radiation Current Visit: Yes Status: Acute Priority: High Code(s): R52 - PAIN, UNSPECIFIED SNOMED Code(s): 36880895 (3) Metastatic breast cancer Narrative/Plan: Hold Ibrance, cont AI while receiving radiation and dueing rehab. Follow up with Primary Oncologist Dr. Hope already scheduled Pt educated that her Ibrance is NOT to be refrigerated. Current Visit: Yes Status: Acute Priority: High Code(s): C50.919 - MALIGNANT NEOPLASM OF UNSP SITE OF UNSPECIFIED FEMALE BREAST SNOMED Code(s): 756270009
[2018-04-06 20:14] LABS: Glucose,Whole Blood 176 mg/dL (75-99)
[2018-04-06] MEDS: RIVAROXABAN 20 MG TAB PO SCH (21:06)
[2018-04-07] MEDS: oxyCODONE-APAP 10-325MG 1 EACH TAB PO PRN ×3 (02:28→21:21)
[2018-04-07] MEDS: DEXAMETHASONE SOD PHOSPHATE 4 MG/ML 1 ML VIAL IV SCH ×3 (06:31→18:07)
[2018-04-07] MEDS: MORPHINE SULFATE ER 15 MG TABLET PO SCH ×3 (06:32→23:00)
[2018-04-07 07:06] LABS: Glucose,Whole Blood 129 mg/dL (75-99)
[2018-04-07] MEDS: INSULIN ASPART 100 UNIT/ML 1 ML 10 ML VIAL SQ SCH ×4 (07:14→21:15)
[2018-04-07 07:46] LABS: Anion Gap 8 mmol/L; Blood Urea Nitrogen 26 mg/dL (7-17); Calcium 8.2 mg/dL (8.4-10.2); Carbon Dioxide 30 mmol/L (22-30); Chloride 102 mmol/L (98-107); Glucose 119 mg/dL (74-99); Potassium 4.6 mmol/L (3.5-5.1); Sodium 140 mmol/L (137-145)
[2018-04-07 07:58] LABS: Anisocytosis Slight; Basophils % (A) 0 %; Eosinophils % (A) 0 %; HCT 31.3 % (34.0-46.0); HGB 9.8 gm/dL (11.4-16.0); Hypochromasia Slight; Lymphocytes # (A) 0.2 k/uL (1.0-4.8); Lymphocytes % (A) 3 %; MCH 30.9 pg (25.0-35.0); MCHC 31.5 g/dL (31.0-37.0); Macrocytosis Slight; Mean Platelet Volume 7.3; Monocytes # (A) 0.4 k/uL (0-1.0); Monocytes % (A) 5 %; Neutrophils # (A) 6.2 k/uL (1.3-7.7); Neutrophils % (A) 91 %; Platelet Count 459 k/uL (150-450); RBC 3.19 m/uL (3.80-5.40); RDW 18.5 % (11.5-15.5); WBC 6.8 k/uL (3.8-10.6)
[2018-04-07] MEDS: ASPIRIN 325 MG TAB PO SCH (08:17)
[2018-04-07] MEDS: MELOXICAM 7.5 MG TAB PO SCH (08:17)
[2018-04-07] MEDS: MAGNESIUM OXIDE 400 MG TAB PO SCH (08:17)
[2018-04-07] MEDS: ANASTROZOLE 1 MG TAB PO SCH (08:18)
[2018-04-07] MEDS: GABAPENTIN 100 MG CAP PO SCH ×2 (08:18→21:15)
[2018-04-07] MEDS: BISACODYL 5 MG TABLET.DR PO SCH (08:18)
[2018-04-07] MEDS: TAMOXIFEN 10 MG TAB PO SCH (08:18)
[2018-04-07] MEDS: PANTOPRAZOLE 40 MG TABLET PO SCH ×2 (08:18→18:06)
[2018-04-07 11:05] LABS: Glucose,Whole Blood 185 mg/dL (75-99)
[2018-04-07] MEDS: THIAMINE 100 MG TAB PO SCH (12:00)
[2018-04-07] MEDS: FOLIC ACID 1 MG TAB PO SCH ×2 (12:00→14:19)
[2018-04-07] MEDS: MULTIVITAMINS, THERA 1 EACH TAB PO SCH (12:00)
[2018-04-07 17:12] LABS: Glucose,Whole Blood 190 mg/dL (75-99)
--- NOTE | 2018-04-07 18:18 | PN ---
PROGRESS NOTE DATE OF SERVICE: 04/07/2018 INTERIM HISTORY: This 52-year-old woman who was admitted with paraparesis, also had possible meningeal carcinomatosis. No chest pain. No palpitations. No fever. PHYSICAL EXAM: Alert and oriented x3. Pulse 88, blood pressure 140/60, respiration 20, temperature 97.2, pulse ox 98% on room air. HEENT: Conjunctivae normal. Oral mucosa moist. NECK is no jugular venous distention. No carotid bruit. No lymph node enlargement. Cardiovascular: S1, S2. Respirations: Breath sounds diminished in the bases. No rhonchi. No crackles. ABDOMEN: Soft, nontender. Legs are no edema. No swelling. Central nervous system: Mild diffuse weakness. LABS: WBC 6.2, hemoglobin 9.8, glucose 129. ASSESSMENT: 1. 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 2. Gait dysfunction. 3. Severe back pain with failure of outpatient treatment. 4. Carcinoma of the breast with metastasis and sacral METS on radiation therapy. 5. Diffuse skeletal involvement of the lumbosacral spine with a fracture of the lower thoracic and compression deformities of T10, L1, L3-L5. 6. History of cholecystectomy. 7. Anemia secondary to malignancy. 8. Increased alkaline phosphatase. 9. FULL CODE. RECOMMENDATIONS AND DISCUSSION: Recommend to continue current medications, monitoring and symptomatic treatment. Otherwise, at this time, I recommend continue the pain medication. Continue the PT/OT evaluation. sample worker and case picker is working towards obtaining an ECF rehab at this time. Guarded prognosis. Further recommendations to follow. MMODL / IJN: [id number] /
--- NOTE | 2018-04-07 19:03 | P.PN ---
Subjective Progress Note Date: 04/07/18 Principal diagnosis: Metastatic Breast Cancer Patient has no acute complaints over night, Seen and evaluated in follow-up today Objective - Vital Signs Vital signs: Vital Signs Temp 97.6 F 04/07/18 05:00 Pulse 88 04/07/18 16:00 Resp 20 04/07/18 16:00 BP 141/64 04/07/18 05:00 Pulse Ox 98 04/07/18 05:00 Intake & Output 04/06/18 04/07/18 04/07/18 18:59 06:59 18:59 Intake Total 011 060 3262 Balance 858 710 1134 Weight 62.596 kg 62.596 kg Intake: Oral 291 819 1503 Other: Voiding Method Toilet Toilet Toilet Bedside Commode Bedside Commode Bedside Commode # Voids 7 3 4 - Exam Constitutional General appearance: Present: average body habitus, cooperative, mild distress - EENT Eyes: Present: anicteric sclerae - Respiratory Details: respirations even and unlabored - Cardiovascular Rhythm: regular - Gastrointestinal General gastrointestinal: Present: soft - Integumentary Integumentary Comment(s): multiple insect bites on body - Neurologic Neurologic: Present: CNII-XII intact - Musculoskeletal Musculoskeletal: Present: generalized weakness - Psychiatric Psychiatric: Present: A&O x's 3, appropriate affect, intact judgment & insight - Labs CBC & Chem 7: 04/07/18 06:48 04/07/18 06:48 Labs: Abnormal Lab Results - Last 24 Hours (Table) 04/06/18 04/07/18 04/07/18 Range/Units 20:12 06:48 06:48 RBC 3.19 L (3.80-5.40) m/uL Hgb 9.8 L (11.4-16.0) gm/dL Hct 31.3 L (34.0-46.0) % RDW 18.5 H (11.5-15.5) % Plt Count 459 H (150-450) k/uL Lymphocytes # 0.2 L (1.0-4.8) k/uL BUN 26 H (7-17) mg/dL Glucose 119 H (74-99) mg/dL POC Glucose (mg/dL) 176 H (75-99) mg/dL Calcium 8.2 L (8.4-10.2) mg/dL 04/07/18 04/07/18 04/07/18 Range/Units 06:54 10:52 17:10 RBC (3.80-5.40) m/uL Hgb (11.4-16.0) gm/dL Hct (34.0-46.0) % RDW (11.5-15.5) % Plt Count (150-450) k/uL Lymphocytes # (1.0-4.8) k/uL BUN (7-17) mg/dL Glucose (74-99) mg/dL POC Glucose (mg/dL) 129 H 185 H 190 H (75-99) mg/dL Calcium (8.4-10.2) mg/dL Assessment and Plan Plan: Assessment and Plan (1) Impaired mobility and ADLs Narrative/Plan: Pt states plan is to go to rehab for a period of time after DC due to weakness and needs to learn how to use her assistive devices. As noted the patient had extensive imaging with MRI during her recent admission , which showed no evidence of cord compression. The destructive lesion on the right side of the sacrum is new. This is likely causing compression on the lumbosacral nerve plexus. The patient's symptoms are consistent with the same. - The patient's symptoms were likely worsened as she was not taking the prescribed dose of steroids, and was also exerting herself with weightbearing, much more so than the hospital. She feels improved with initiation of high- dose IV steroids, as well as bedrest. - She was discharged with Dexamethasone and PPI last admission although she failed to fill and take as directed. She has been re-educated as she should not abruptly stop dexamethasone and the importance of dexamethasone as an anti- inflammatory to decrease the pressure on this nerve. - As noted there is no evidence of cord compression this time. The patient was evaluated by orthopedic spine surgery last week. Case was also discussed extensively with radiation oncology. - The patient underwent simulation and has started radiation to the lesion. - She will plan to be discharged to rehabilitation. I have provided the RN today with written RX for her Xanax, MS CONTIN (long acting at increased dose of 30mg po TID) as well as short acting percocet. - I have sent transmitted prescriptions for her arimidex, Dexamethasone, and Protonix to [facility] to ensure these are available during rehabilitation. - Medical Oncology will continue to manage her opioid contract and a MAPS has been pulled and filed in her chart. (2) Intractable pain Narrative/Plan: Pain is from malignancy. Continue steroids, taper slowly, pt has Rx for steroids at home. Complete radiation Current Visit: Yes Status: Acute Priority: High Code(s): R52 - PAIN, UNSPECIFIED SNOMED Code(s): 11452558 (3) Metastatic breast cancer Narrative/Plan: - Hold Ibrance, cont AI ARIMIDEX - PATIENT DOES NOT TAKE TAMOXIFEN, she will continue on anastrazole (arimidex) while receiving radiation and during rehab. - I have updated this in SEP and on her discharge medications as well as transmitted a new RX so she will ensure available at discharge. SHe will Follow up with Primary Oncologist Dr. Hope already scheduled Pt educated that her Ibrance is NOT to be refrigerated. ALso educated she will hold ibrance until follow-up and at the direction od Dr. Hope Current Visit: Yes Status: Acute Priority: High Code(s): C50.919 - MALIGNANT NEOPLASM OF UNSP SITE OF UNSPECIFIED FEMALE BREAST SNOMED Code(s): 700902043
[2018-04-07 20:56] LABS: Glucose,Whole Blood 169 mg/dL (75-99)
[2018-04-07] MEDS: HYDROCORTISONE 1% CREAM 30 GM TUBE TOPICAL PRN (21:15)
[2018-04-07] MEDS: RIVAROXABAN 20 MG TAB PO SCH (21:15)
[2018-04-07] MEDS: diphenhydrAMINE 25 MG CAP PO PRN (23:00)
[2018-04-08] MEDS: DEXAMETHASONE SOD PHOSPHATE 4 MG/ML 1 ML VIAL IV SCH ×4 (00:36→17:12)
[2018-04-08] MEDS: oxyCODONE-APAP 10-325MG 1 EACH TAB PO PRN ×3 (04:05→20:51)
[2018-04-08] MEDS: MORPHINE SULFATE ER 15 MG TABLET PO SCH ×4 (06:50→22:21)
[2018-04-08 07:33] LABS: Glucose,Whole Blood 134 mg/dL (75-99)
[2018-04-08] MEDS: INSULIN ASPART 100 UNIT/ML 1 ML 10 ML VIAL SQ SCH ×4 (07:39→20:51)
[2018-04-08] MEDS: ANASTROZOLE 1 MG TAB PO SCH (08:19)
[2018-04-08] MEDS: GABAPENTIN 100 MG CAP PO SCH ×2 (08:19→20:51)
[2018-04-08] MEDS: MAGNESIUM OXIDE 400 MG TAB PO SCH (08:19)
[2018-04-08] MEDS: ASPIRIN 325 MG TAB PO SCH (08:19)
[2018-04-08] MEDS: BISACODYL 5 MG TABLET.DR PO SCH (08:19)
[2018-04-08] MEDS: MELOXICAM 7.5 MG TAB PO SCH (08:19)
[2018-04-08] MEDS: PANTOPRAZOLE 40 MG TABLET PO SCH ×2 (08:19→17:12)
[2018-04-08 10:56] LABS: Glucose,Whole Blood 199 mg/dL (75-99)
[2018-04-08] MEDS: THIAMINE 100 MG TAB PO SCH (11:40)
[2018-04-08] MEDS: FOLIC ACID 1 MG TAB PO SCH (11:40)
[2018-04-08] MEDS: MULTIVITAMINS, THERA 1 EACH TAB PO SCH (11:40)
[2018-04-08 15:18] LABS: Appearance,Urine Clear (Clear); Bilirubin,Urine Negative (Negative); Blood,Urine Negative (Negative); Color,Urine Light Yellow; Glucose,Urine (UA) Negative (Negative); Ketones,Urine Negative (Negative); Leukocyte Esterase,Urine Negative (Negative); Nitrite,Urine Negative (Negative); PH, Urine 6.5 (5.0-8.0); Protein,Urine Negative (Negative); Specific Gravity,Urine 1.006 (1.001-1.035); Urobilinogen,Urine <2.0 mg/dL (<2.0)
[2018-04-08 17:10] LABS: Glucose,Whole Blood 153 mg/dL (75-99)
--- NOTE | 2018-04-08 17:37 | PN ---
PROGRESS NOTE DATE OF SERVICE: 04/08/2018 This 52-year-old woman who was admitted with paraparesis and weakness is being closely monitored. ECF rehab is being planned at this time. No chest pain. No palpitations. Patient finished the current course of radiation therapy. On exam, alert and oriented x3. Pulse 91, blood pressure 140/62, respiration 16, temperature 98 degrees, pulse ox 97% on room air. HEENT: Conjunctivae normal. Oral mucosa moist. NECK: No jugular venous distention. No carotid bruit. No lymph node enlargement. CARDIOVASCULAR SYSTEM: S1, S2 muffled. RESPIRATORY SYSTEM: Breath sounds diminished at the bases. A few scattered rhonchi and crackles. ABDOMEN: Soft, non-tender. LEGS: No edema. No swelling. NERVOUS SYSTEM: Mild diffuse weakness. LABS: WBC 6.8, hemoglobin 9.8. ASSESSMENT: 1. 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 2. Gait dysfunction. 3. Severe back pain with failure of outpatient treatment. 4. Carcinoma of the breast with metastasis and sacral metastases, on radiation therapy. 5. Diffuse skeletal involvement of the lumbosacral spine with a fracture of the lower thoracic and compression deformities of T10, L1, L3, L5. 6. History of cholecystectomy. 7. Anemia secondary to malignancy. 8. Increased alkaline phosphatase. 9. FULL CODE. RECOMMENDATIONS AND DISCUSSION: I recommend to continue current medications, continue with the monitoring and symptomatic treatment. At this time I recommend continuing with PT/OT evaluation. Guarded prognosis. Further recommendations to follow. MMODL / IJN: [id number] /
[2018-04-08 20:27] LABS: Glucose,Whole Blood 173 mg/dL (75-99)
[2018-04-08] MEDS: diphenhydrAMINE 25 MG CAP PO PRN (20:51)
[2018-04-08] MEDS: RIVAROXABAN 20 MG TAB PO SCH (20:51)
[2018-04-09] MEDS: DEXAMETHASONE SOD PHOSPHATE 4 MG/ML 1 ML VIAL IV SCH ×2 (00:36→07:28)
[2018-04-09] MEDS: oxyCODONE-APAP 10-325MG 1 EACH TAB PO PRN ×2 (01:24→12:52)
[2018-04-09] MEDS: MORPHINE SULFATE ER 15 MG TABLET PO SCH ×3 (07:26→22:29)
[2018-04-09] MEDS: PANTOPRAZOLE 40 MG TABLET PO SCH ×2 (07:31→18:05)
[2018-04-09] MEDS: ASPIRIN 325 MG TAB PO SCH (07:32)
[2018-04-09] MEDS: MELOXICAM 7.5 MG TAB PO SCH (07:33)
[2018-04-09] MEDS: GABAPENTIN 100 MG CAP PO SCH ×2 (07:33→21:33)
[2018-04-09] MEDS: MAGNESIUM OXIDE 400 MG TAB PO SCH (07:33)
[2018-04-09] MEDS: ANASTROZOLE 1 MG TAB PO SCH (07:33)
[2018-04-09 07:34] LABS: Glucose,Whole Blood 180 mg/dL (75-99)
[2018-04-09] MEDS: BISACODYL 5 MG TABLET.DR PO SCH (07:49)
[2018-04-09] MEDS: INSULIN ASPART 100 UNIT/ML 1 ML 10 ML VIAL SQ SCH ×4 (07:58→21:33)
[2018-04-09] MEDS: diphenhydrAMINE 25 MG CAP PO PRN (11:01)
[2018-04-09] MEDS ORDERED: methylPREDNISolone SOD SUCCI 125 MG/2 ML VIAL IV STA (11:09)
[2018-04-09 11:19] LABS: Glucose,Whole Blood 196 mg/dL (75-99)
[2018-04-09] MEDS ORDERED: MENTHOL-CAMPHOR LOTION 222 APPLIC/222 ML BOTTLE TOPICAL PRN (11:34)
[2018-04-09] MEDS: MULTIVITAMINS, THERA 1 EACH TAB PO SCH (11:48)
[2018-04-09 17:06] LABS: Glucose,Whole Blood 172 mg/dL (75-99)
[2018-04-09] MEDS: diphenhydrAMINE 50 MG CAP PO SCH (18:05)
[2018-04-09] MEDS: methylPREDNISolone SOD SUCCI 125 MG/2 ML VIAL IV SCH (18:06)
[2018-04-09 20:26] LABS: Glucose,Whole Blood 159 mg/dL (75-99)
[2018-04-09] MEDS: RIVAROXABAN 20 MG TAB PO SCH (21:33)
--- NOTE | 2018-04-09 22:26 | PN ---
PROGRESS NOTE DATE OF SERVICE: 04/09/2018. INTERVAL HISTORY: This 52-year-old woman who was admitted with paraparesis and weakness improved significantly. Patient has significant itching all over the body. No chest pain. No palpitations. Patient has had some diarrhea. EXAM: Alert, oriented x3. Pulse 93, blood pressure 110/77, respirations 20, temperature 97.8, pulse ox 97% room air. HEENT: Conjunctivae normal. NECK: No JVD. CARDIOVASCULAR: S1 and S2 muffled. LUNGS: Breath sounds diminished at the bases. Few scattered rhonchi and crackles. ABDOMEN: Soft, nontender. Legs no edema. LABS: Noted. Accu-Cheks 172. UA is unremarkable. ASSESSMENT: 1. Paraparesis and weakness both legs, possibly secondary to meningeal carcinomatosis or metastatic breast cancer possibly. 2. Gait dysfunction. 3. Severe back pain with failure of outpatient treatment. 4. Carcinoma of the breast with sacral metastasis, on radiation therapy. 5. Diffuse itching of undetermined etiology. 6. Diffuse skeletal involvement, lumbosacral spine with fracture of the lower thoracic compression deformities at T10, L1, L3-L5. 7. History of cholecystectomy. 8. Anemia secondary to malignancy. 9. Increased alkaline phosphatase. 10.FULL CODE. RECOMMENDATIONS: Recommend to continue current management, monitoring and current treatment at this time. I recommend continue with current medications. I would recommend high- dose steroids as well as local treatment for itching and continue to monitor. Further recommendations to follow. Prognosis guarded. MMODL / IJN: [id number] / MTDImer
[2018-04-10] MEDS: diphenhydrAMINE 50 MG CAP PO SCH ×5 (00:16→23:45)
[2018-04-10] MEDS: methylPREDNISolone SOD SUCCI 125 MG/2 ML VIAL IV SCH ×4 (00:17→17:22)
[2018-04-10] MEDS: oxyCODONE-APAP 10-325MG 1 EACH TAB PO PRN ×2 (01:10→11:55)
[2018-04-10 07:13] LABS: Glucose,Whole Blood 116 mg/dL (75-99)
[2018-04-10] MEDS: MORPHINE SULFATE ER 15 MG TABLET PO SCH ×3 (07:17→22:29)
[2018-04-10] MEDS: INSULIN ASPART 100 UNIT/ML 1 ML 10 ML VIAL SQ SCH ×4 (08:18→20:52)
[2018-04-10] MEDS: ASPIRIN 325 MG TAB PO SCH (08:30)
[2018-04-10] MEDS: MELOXICAM 7.5 MG TAB PO SCH (08:30)
[2018-04-10] MEDS: ANASTROZOLE 1 MG TAB PO SCH (08:30)
[2018-04-10] MEDS: GABAPENTIN 100 MG CAP PO SCH ×2 (08:31→20:41)
[2018-04-10] MEDS: PANTOPRAZOLE 40 MG TABLET PO SCH ×2 (08:31→17:22)
[2018-04-10] MEDS: MAGNESIUM OXIDE 400 MG TAB PO SCH (08:32)
[2018-04-10 09:00] LABS: Anisocytosis Slight; Basophils % (A) 0 %; Eosinophils % (A) 0 %; HCT 30.8 % (34.0-46.0); HGB 9.7 gm/dL (11.4-16.0); Hypochromasia Slight; Lymphocytes # (A) 0.2 k/uL (1.0-4.8); Lymphocytes % (A) 3 %; MCH 31.1 pg (25.0-35.0); MCHC 31.3 g/dL (31.0-37.0); MCV 99.2 fL (80.0-100.0); Macrocytosis Moderate; Mean Platelet Volume 6.6; Monocytes # (A) 0.3 k/uL (0-1.0); Monocytes % (A) 4 %; Neutrophils # (A) 7.1 k/uL (1.3-7.7); Neutrophils % (A) 93 %; Platelet Count 386 k/uL (150-450); RBC 3.11 m/uL (3.80-5.40); RDW 19.1 % (11.5-15.5); WBC 7.6 k/uL (3.8-10.6)
[2018-04-10 09:34] LABS: Anion Gap 9 mmol/L; Blood Urea Nitrogen 23 mg/dL (7-17); Calcium 8.3 mg/dL (8.4-10.2); Carbon Dioxide 29 mmol/L (22-30); Chloride 102 mmol/L (98-107); Glucose 135 mg/dL (74-99); Potassium 4.4 mmol/L (3.5-5.1); Sodium 140 mmol/L (137-145)
[2018-04-10 11:49] LABS: Glucose,Whole Blood 122 mg/dL (75-99)
[2018-04-10] MEDS: MULTIVITAMINS, THERA 1 EACH TAB PO SCH (11:55)
[2018-04-10] MEDS: HYDROCORTISONE 1% CREAM 30 GM TUBE TOPICAL PRN (17:23)
[2018-04-10 17:29] LABS: Glucose,Whole Blood 258 mg/dL (75-99)
--- NOTE | 2018-04-10 20:12 | PN ---
PROGRESS NOTE DATE OF SERVICE: 04/10/2018 INTERVAL HISTORY: This 52-year-old woman who was admitted with paraparesis and weakness is being closely monitored. PT, OT evaluated the patient. ECF preauthorization is pending at this time. No chest pain. No palpitations. No fever. EXAM: Alert and oriented x3. Pulse is 117, blood pressure is 106/60, respiration 20, temperature 97.8, pulse ox 97% on room air. HEENT: Conjunctivae normal. CARDIOVASCULAR: S1, S2 muffled. RESPIRATORY SYSTEM: Breath sounds diminished at the bases. A few scattered rhonchi and crackles. ABDOMEN: Soft, nontender. LEGS: No edema. NERVOUS SYSTEM: No focal deficits. LABS: Labs are at this time shows WBC 7.6, hemoglobin is 9.7, sodium 140, potassium 4.4, glucose 135, calcium is 8.3. ASSESSMENT: 1. 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 2. Gait dysfunction. 3. Severe back pain with failure of outpatient treatment. 4. Carcinoma of the breast with sacral metastasis on radiation therapy. 5. Diffuse itching of undetermined etiology, possible allergic reaction. 6. Diffuse skeletal involvement of the lumbosacral spine with fracture of the lower thoracic compression deformity of T10, L1, L3-L5. 7. History of cholecystectomy. 8. Anemia, secondary to malignancy. 9. Increased alkaline phosphatase. 10.FULL CODE. RECOMMENDATIONS AND DISCUSSION: I recommend to continue current management, continue monitoring and symptomatic treatment. At this time I recommend continue with IV steroids. Continue the rest of the medication. PT/OT evaluation and monitor blood sugars closely. ECF rehab. Further recommendations to follow. MMODL / IJN: [id number] /
[2018-04-10] MEDS: RIVAROXABAN 20 MG TAB PO SCH (20:40)
[2018-04-10 20:46] LABS: Glucose,Whole Blood 163 mg/dL (75-99)
[2018-04-10] MEDS: methylPREDNISolone SOD SUCCI 40 MG/ML 1 ML VIAL IV SCH (23:45)
[2018-04-11] MEDS: oxyCODONE-APAP 10-325MG 1 EACH TAB PO PRN ×2 (04:41→20:39)
[2018-04-11] MEDS: MORPHINE SULFATE ER 15 MG TABLET PO SCH ×2 (06:04→17:40)
[2018-04-11] MEDS: diphenhydrAMINE 50 MG CAP PO SCH ×4 (06:04→20:36)
[2018-04-11 07:00] LABS: Glucose,Whole Blood 113 mg/dL (75-99)
[2018-04-11] MEDS: INSULIN ASPART 100 UNIT/ML 1 ML 10 ML VIAL SQ SCH ×4 (08:13→20:33)
[2018-04-11] MEDS: HYDROCORTISONE 1% CREAM 30 GM TUBE TOPICAL PRN (09:24)
[2018-04-11] MEDS: methylPREDNISolone SOD SUCCI 40 MG/ML 1 ML VIAL IV SCH ×2 (09:28→17:43)
[2018-04-11] MEDS: GABAPENTIN 100 MG CAP PO SCH ×2 (09:40→20:36)
[2018-04-11] MEDS: ASPIRIN 325 MG TAB PO SCH (09:40)
[2018-04-11] MEDS: PANTOPRAZOLE 40 MG TABLET PO SCH ×2 (09:40→17:42)
[2018-04-11] MEDS: ANASTROZOLE 1 MG TAB PO SCH (09:41)
[2018-04-11] MEDS: MELOXICAM 7.5 MG TAB PO SCH (09:41)
[2018-04-11] MEDS: MAGNESIUM OXIDE 400 MG TAB PO SCH (09:41)
[2018-04-11] MEDS ORDERED: diphenhydrAMINE 50 MG CAP PO SCH (10:00)
[2018-04-11] MEDS ORDERED: MORPHINE SULFATE 4 MG/ML SYRINGE IVP ONE (11:00)
[2018-04-11 11:35] LABS: Glucose,Whole Blood 96 mg/dL (75-99)
[2018-04-11] MEDS: MULTIVITAMINS, THERA 1 EACH TAB PO SCH (13:08)
[2018-04-11 17:28] LABS: Glucose,Whole Blood 169 mg/dL (75-99)
[2018-04-11 20:21] LABS: Glucose,Whole Blood 122 mg/dL (75-99)
[2018-04-11] MEDS: RIVAROXABAN 20 MG TAB PO SCH (20:36)
[2018-04-11 23:00] VITALS: RESP 18
[2018-04-12] MEDS: MORPHINE SULFATE ER 15 MG TABLET PO SCH ×3 (00:04→15:30)
[2018-04-12] MEDS: diphenhydrAMINE 50 MG CAP PO SCH ×5 (00:07→15:31)
[2018-04-12] MEDS: methylPREDNISolone SOD SUCCI 40 MG/ML 1 ML VIAL IV SCH ×3 (00:07→15:31)
[2018-04-12 05:53] VITALS: TEMP 97.7
[2018-04-12 07:00] LABS: Glucose,Whole Blood 146 mg/dL (75-99)
[2018-04-12] MEDS: ASPIRIN 325 MG TAB PO SCH (08:54)
[2018-04-12] MEDS: MAGNESIUM OXIDE 400 MG TAB PO SCH (08:54)
[2018-04-12] MEDS: PANTOPRAZOLE 40 MG TABLET PO SCH (08:54)
[2018-04-12] MEDS: ANASTROZOLE 1 MG TAB PO SCH (08:54)
[2018-04-12] MEDS: GABAPENTIN 100 MG CAP PO SCH (08:54)
[2018-04-12] MEDS: INSULIN ASPART 100 UNIT/ML 1 ML 10 ML VIAL SQ SCH ×2 (08:55→12:07)
[2018-04-12] MEDS: MELOXICAM 7.5 MG TAB PO SCH (08:55)
[2018-04-12 09:43] LABS: ALT 38 U/L (9-52); AST 52 U/L (14-36); Albumin 2.8 g/dL (3.5-5.0); Alkaline Phosphatase 187 U/L (38-126); Anion Gap 8 mmol/L; Blood Urea Nitrogen 22 mg/dL (7-17); Calcium 8.1 mg/dL (8.4-10.2); Carbon Dioxide 28 mmol/L (22-30); Chloride 102 mmol/L (98-107); Glucose 221 mg/dL (74-99); Potassium 4.7 mmol/L (3.5-5.1); Sodium 138 mmol/L (137-145); Total Bilirubin 0.3 mg/dL (0.2-1.3); Total Protein 5.4 g/dL (6.3-8.2)
[2018-04-12 10:00] LABS: Anisocytosis Slight; Basophils % (A) 0 %; Eosinophils % (A) 0 %; HCT 32.8 % (34.0-46.0); HGB 9.8 gm/dL (11.4-16.0); Hypochromasia Moderate; Lymphocytes # (A) 0.2 k/uL (1.0-4.8); Lymphocytes % (A) 2 %; MCH 29.9 pg (25.0-35.0); MCV 99.8 fL (80.0-100.0); Macrocytosis Moderate; Mean Platelet Volume 6.5; Monocytes # (A) 0.2 k/uL (0-1.0); Monocytes % (A) 2 %; Neutrophils % (A) 96 %; Platelet Count 348 k/uL (150-450); RBC 3.29 m/uL (3.80-5.40); WBC 9.5 k/uL (3.8-10.6)
--- NOTE | 2018-04-12 10:41 | P.PN ---
Subjective Progress Note Date: 04/11/18 Principal diagnosis: Metastatic breast cancer Severe back pain and paresthesias Patient is a 52-year-old female with a known history of breast cancer and metastasis to the bone was admitted to hospital with paresthesias and weakness. Patient is on pain medications and PTOT recommends ECF transfer. 04/11/2018 Patient is still complaining of back pain which is slightly improved. Patient also complaining of itching and rash over the right thigh is healing well also. A schulz does have multiple skin lesions likely due to flea bites as per patient. Patient has a dog at home which is infested with fleas. Denied any complaints of fever or chills. No nausea vomiting or abdominal pain. No complaints of chest pain or shortness of breath. All other review of systems negative except the above. Denied any, soft and leg weakness or bowel or bladder incontinence. Current medications reviewed. Objective - Vital Signs Vital signs: Vital Signs Temp 97.7 F 04/11/18 08:31 Pulse 92 04/11/18 08:31 Resp 14 04/11/18 12:23 BP 121/78 04/11/18 08:31 Pulse Ox 98 04/11/18 08:31 Intake & Output 04/10/18 04/11/18 04/11/18 18:59 06:59 18:59 Intake Total 750 480 Output Total 1 Balance 749 480 Weight 62.596 kg Intake: Oral 750 480 Output: Stool 1 Other: Voiding Method Toilet Toilet Toilet # Voids 1 1 - Exam PHYSICAL EXAMINATION: Patient is lying in the bed comfortably, no acute distress, awake alert and oriented.. HEENT: Normocephalic. Neck is supple. Pupils reactive. Nostrils clear. Oral cavity is moist. Ears reveal no drainage. Neck reveals no JVD, carotid bruits, or thyromegaly. CHEST EXAMINATION: Trachea is central. Symmetrical expansion. Lung umanzor clear to auscultation and percussion. CARDIAC: Normal S1, S2 with no gallops. No murmurs ABDOMEN: Soft. Bowel sounds normal. No organomegaly. No abdominal bruits. Extremities: reveal no edema. No clubbing or cyanosis Neurologically awake, alert, oriented x3 with well-coordinated movements. No focal deficits noted Skin: Patient does have skin lesions. Especially on the hands and legs. No purulent drainage noted. Healing well. Psychiatric: Coperative. Nonsuicidal Musculoskeletal: No joint swelling or deformity. Normal range of motion. 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 PT OT is following. Patient was started on methylprednisolone 40 mg every 8 hourly this be continued. Monitor blood sugar level. Encourage ambulation and PTOT. Awaiting ECF transfer. Prognosis is guarded. Time with Patient: Greater than 30
[2018-04-12 12:01] LABS: Glucose,Whole Blood 164 mg/dL (75-99)
[2018-04-12] MEDS: MULTIVITAMINS, THERA 1 EACH TAB PO SCH (12:06)
[2018-04-12] MEDS: CEPHALEXIN 500 MG CAP PO SCH ×2 (12:06→15:31)
[2018-04-12 12:14] VITALS: BP 127/95; PULSE 110
--- NOTE | 2018-04-12 16:19 | P.DS ---
Providers Date of admission: 04/02/18 14:11 Expected date of discharge: 04/12/18 Attending physician: Mavis Cline Consults: 04/02/18 14:43 Consult Physician Stat Consulting Provider: Yonny Aldrich Consult Reason/Comments: Breast Ca, intractable pain, unable for ADLs Do you want consulting provider notified?: Yes 04/02/18 19:41 Consult Physician Routine Consulting Provider: Miquel Arenas Consult Reason/Comments: radiation Do you want consulting provider notified?: Yes, Notify in am [facility] Course: Discharge diagnosis Paresthesias and weakness of both legs 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 Patient is on pain medications and PTOT recommends ECF transfer. 04/11/2018 Patient is still complaining of back pain which is slightly improved. Patient also complaining of itching and rash over the right thigh is healing well also. A schulz does have multiple skin lesions likely due to flea bites as per patient. Patient has a dog at home which is infested with fleas. Denied any complaints of fever or chills. No nausea vomiting or abdominal pain. No complaints of chest pain or shortness of breath. All other review of systems negative except the above. Denied any, soft and leg weakness or bowel or bladder incontinence. 04/12/2018 Patient says that her pain is much better now. Denied any paresthesias. Patient will be continued on dexamethasone and pain management as an outpatient. Otherwise patient is stable to be discharged to rehab. No fever no chills. No nausea vomiting or abdominal pain. Patient was noted to have pushed a rash on the right forearm. Patient be continued on Keflex 500 mg 3 times a day for 5 days total. Follow with oncology and primary care physician as outpatient. Plan: Patient was continued on pain management and continue to monitor closely. PT OT is following. Patient was started on methylprednisolone 40 mg every 8 hourly. Continue with dexamethasone as an outpatient.. Monitored blood sugar level. Encourage ambulation and PTOT. Awaiting ECF transfer. Prognosis is guarded. Follow-up with oncology clinic as an outpatient. PHYSICAL EXAMINATION: Patient is lying in the bed comfortably, no acute distress, awake alert and oriented.. HEENT: Normocephalic. Neck is supple. Pupils reactive. Nostrils clear. Oral cavity is moist. Ears reveal no drainage. Neck reveals no JVD, carotid bruits, or thyromegaly. CHEST EXAMINATION: Trachea is central. Symmetrical expansion. Lung umanzor clear to auscultation and percussion. CARDIAC: Normal S1, S2 with no gallops. No murmurs ABDOMEN: Soft. Bowel sounds normal. No organomegaly. No abdominal bruits. Extremities: reveal no edema. No clubbing or cyanosis Neurologically awake, alert, oriented x3 with well-coordinated movements. No focal deficits noted Skin: Patient does have skin lesions. Especially on the hands and legs. No purulent drainage noted. Healing well. Psychiatric: Coperative. Nonsuicidal Musculoskeletal: No joint swelling or deformity. Normal range of motion. Vital Signs 04/12/18 12:12 Temperature 97.7 F Pulse Rate [ 110 H Pulse Oximetery ] Respiratory 18 Rate Blood Pressure 127/95 [Left Arm] O2 Sat by Pulse 98 Oximetry Total time taken greater than 35 minutes including 18 minutes for counseling and coordination of care. Patient Condition at Discharge: Stable Plan - Discharge Summary Discharge Rx Participant: No New Discharge Prescriptions: New Bisacodyl [Dulcolax] 10 mg PO DAILY tablet. Folic Acid 1 mg PO DAILY@1200 tab Hydrocortisone Cream [Hydrocortisone 1% Cream] 1 applic TOPICAL TID PRN applic PRN Reason: Skin Irritation Polyethylene Glycol 3350 [Miralax] 17 gm PO DAILY PRN powd.pack PRN Reason: Constipation Thiamine [Vitamin B-1] 100 mg PO DAILY@1200 tab INSULIN LISPRO (HumaLOG) [humaLOG] 0 unit SQ ACHS #1 vial ALPRAZolam [Xanax] 0.25 mg PO TID PRN #90 tab PRN Reason: Anxiety Morphine Sulfate ER [Ms Contin] 30 mg PO Q8H #90 tablet Ondansetron [Zofran] 4 mg PO Q6H PRN #45 vial PRN Reason: Nausea And Vomiting oxyCODONE-APAP 10-325MG [Percocet 10-325 mg] 1 each PO Q6HR PRN #60 tab PRN Reason: MODERATE Pain Anastrozole [Arimidex] 1 mg PO DAILY #90 tab Menthol-Camphor Lotion [Sarna Lotion 0.5%-0.5%] 1 applic TOPICAL TID PRN ml PRN Reason: itching Cephalexin [Keflex] 500 mg PO TID 5 Days #15 cap Continue EPINEPHrine (Auto Inject) [Epipen] 0.3 mg IM ONCE PRN PRN Reason: Anaphylaxis Cetirizine HCl [Zyrtec] 10 mg PO DAILY PRN PRN Reason: Allergy Symptoms Methocarbamol [Robaxin] 1,000 mg PO Q8H PRN PRN Reason: Muscle Spasm Magnesium Oxide [Mag-Ox] 400 mg PO DAILY Gabapentin [Neurontin] 100 mg PO BID Aspirin 325 mg PO DAILY Multivitamins, Thera [Multivitamin (formulary)] 1 tab PO DAILY diphenhydrAMINE [Benadryl] 25 mg PO QID PRN PRN Reason: Allergy Symptoms Sennosides-Docusate Sodium [Senokot-S] 1 tab PO DAILY Rivaroxaban [Xarelto] 20 mg PO HS Calcium Carb/Vitamin D3/Vit K1 [Citracal Soft Chew] 1 tab PO DAILY Celecoxib [CeleBREX] 200 mg PO BID Pantoprazole [Protonix] 40 mg PO AC-BID #60 tablet. Morphine Sulfate ER [Ms Contin] 30 mg PO Q8H #9 tablet oxyCODONE-APAP 10-325MG [Percocet 10-325 mg] 1 tab PO Q4H PRN #18 tab PRN Reason: Pain Temazepam [Restoril] 15 mg PO HS PRN #3 cap PRN Reason: Insomnia Dexamethasone 4 mg PO Q8HR #60 tablet Discontinued Tamoxifen Citrate 20 mg PO DAILY Anastrozole [Arimidex] 1 mg PO DAILY tab Discharge Medication List Cetirizine HCl [Zyrtec] 10 mg PO DAILY PRN 07/04/15 [History] EPINEPHrine (Auto Inject) [Epipen] 0.3 mg IM ONCE PRN 07/04/15 [History] Magnesium Oxide [Mag-Ox] 400 mg PO DAILY 06/07/17 [History] Methocarbamol [Robaxin] 1,000 mg PO Q8H PRN 06/07/17 [History] Gabapentin [Neurontin] 100 mg PO BID 09/12/17 [History] Aspirin 325 mg PO DAILY 02/10/18 [History] Calcium Carb/Vitamin D3/Vit K1 [Citracal Soft Chew] 1 tab PO DAILY 02/10/18 [ History] Celecoxib [CeleBREX] 200 mg PO BID 02/10/18 [History] Multivitamins, Thera [Multivitamin (formulary)] 1 tab PO DAILY 02/10/18 [History ] Rivaroxaban [Xarelto] 20 mg PO HS 02/10/18 [History] Sennosides-Docusate Sodium [Senokot-S] 1 tab PO DAILY 02/10/18 [History] diphenhydrAMINE [Benadryl] 25 mg PO QID PRN 02/10/18 [History] Pantoprazole [Protonix] 40 mg PO AC-BID #60 tablet. 03/30/18 [Rx] ALPRAZolam [Xanax] 0.25 mg PO TID PRN #90 tab 04/07/18 [Rx] Anastrozole [Arimidex] 1 mg PO DAILY #90 tab 04/07/18 [Rx] Bisacodyl [Dulcolax] 10 mg PO DAILY tablet. 04/07/18 [Rx] Dexamethasone 4 mg PO Q8HR #60 tablet 04/07/18 [Rx] Folic Acid 1 mg PO DAILY@1200 tab 04/07/18 [Rx] Hydrocortisone Cream [Hydrocortisone 1% Cream] 1 applic TOPICAL TID PRN applic 04/07/18 [Rx] INSULIN LISPRO (HumaLOG) [humaLOG] 0 unit SQ ACHS #1 vial 04/07/18 [Rx] Morphine Sulfate ER [Ms Contin] 30 mg PO Q8H #9 tablet 04/07/18 [Rx] Morphine Sulfate ER [Ms Contin] 30 mg PO Q8H #90 tablet 04/07/18 [Rx] Ondansetron [Zofran] 4 mg PO Q6H PRN #45 vial 04/07/18 [Rx] Polyethylene Glycol 3350 [Miralax] 17 gm PO DAILY PRN powd.pack 04/07/18 [Rx] Temazepam [Restoril] 15 mg PO HS PRN #3 cap 04/07/18 [Rx] Thiamine [Vitamin B-1] 100 mg PO DAILY@1200 tab 04/07/18 [Rx] oxyCODONE-APAP 10-325MG [Percocet 10-325 mg] 1 each PO Q6HR PRN #60 tab [Rx] oxyCODONE-APAP 10-325MG [Percocet 10-325 mg] 1 tab PO Q4H PRN #18 tab 04/07/18 [ Rx] Cephalexin [Keflex] 500 mg PO TID 5 Days #15 cap 04/12/18 [Rx] Menthol-Camphor Lotion [Sarna Lotion 0.5%-0.5%] 1 applic TOPICAL TID PRN ml [Rx] Follow up Appointment(s)/Referral(s): Miquel Arenas MD [STAFF PHYSICIAN] - 05/08/18 2:00 pm (Follow up appt id Tuesday May 08, 2018 at 2pm at [facility]) Juanito Parnell DO [Primary Care Provider] - 1 Week (After discharge from subacute rehab) Viviane Hope MD [STAFF PHYSICIAN] - 04/17/18 2:30 pm Activity/Diet/Wound Care/Special Instructions: [facility]: Cardiac Activity: as tolerated
== END 2018-04-12 17:21 | DRG 544 ==
LOC: EC 10:21 → 5ONC 14:11 → 5MS5E 04-09 17:55
PROVIDERS: ADMIT Hospitalist; ATTEND Hospitalist
PROC: DP0C1ZZ Beam Radiation of Other Bone using Photons 1 - 10 MeV (ICD-10-PCS; principal; 2018-04-04)
DX: C79.51 Secondary malignant neoplasm of bone (principal); G54.1 Lumbosacral plexus disorders; C50.911 Malignant neoplasm of unspecified site of right female breast; G89.3 Neoplasm related pain (acute) (chronic); D63.0 Anemia in neoplastic disease; G43.909 Migraine, unspecified, not intractable, without status migrainosus; G89.4 Chronic pain syndrome; S70.361A Insect bite (nonvenomous), right thigh, initial encounter; R35.0 Frequency of micturition; R39.15 Urgency of urination; R26.9 Unspecified abnormalities of gait and mobility; R74.8 Abnormal levels of other serum enzymes; M19.91 Primary osteoarthritis, unspecified site; Z17.0 Estrogen receptor positive status [ER+]; Z79.82 Long term (current) use of aspirin; Z79.811 Long term (current) use of aromatase inhibitors; Z79.01 Long term (current) use of anticoagulants; Z79.1 Long term (current) use of non-steroidal anti-inflammatories (NSAID); Z79.891 Long term (current) use of opiate analgesic; Z79.52 Long term (current) use of systemic steroids; Z79.899 Other long term (current) drug therapy; Z87.311 Personal history of (healed) other pathological fracture; Z87.891 Personal history of nicotine dependence; Z96.612 Presence of left artificial shoulder joint; Z90.49 Acquired absence of other specified parts of digestive tract; Z91.041 Radiographic dye allergy status; Z91.040 Latex allergy status; Z91.013 Allergy to seafood; Z91.018 Allergy to other foods; W57.XXXA Bitten or stung by nonvenomous insect and other nonvenomous arthropods, initial encounter
CPT/HCPCS: 36415; 71045; 77295; 77300; 77332; 77334; 77387; 77412; 77470; 80048; 80053; 81003; 83036; 83735; 85025; 87086; 93005; 96360; 99285

== ENCOUNTER 2018-04-29 12:57 | Inpatient (IN) | payer OTHER ==
[2018-04-29] MEDS ORDERED: SODIUM CHLORIDE 0.9% 500 ML 500 ML IV ONE (13:00)
[2018-04-29] MEDS ORDERED: DEXTROSE 50%-WATER 50 ML SYRINGE IVP STA ×2 (13:01→15:52)
[2018-04-29 13:04] LABS: Glucose,Whole Blood 39 mg/dL (75-99)
--- NOTE | 2018-04-29 13:08 | ED ---
General Adult HPI - General Stated complaint: Weakness Time Seen by Provider: 04/29/18 12:57 Source: RN notes reviewed - History of Present Illness Initial comments: This is a 52-year-old female who has a past medical history significant for metastatic breast cancer. Patient was at a snf and she is a no code. Patient was found to be altered all night long and blood sugars were in the 40s all night long. They called EMS because she continued to be altered today EMS arrived blood sugar was 60 for them. Patient is unable to give any history and there is no family member with the patient and there is no caregiver with the patient. - Related Data Home Medications Medication Instructions Recorded Confirmed Cetirizine HCl [Zyrtec] 10 mg PO DAILY PRN 07/04/15 04/02/18 EPINEPHrine (Auto Inject) [Epipen] 0.3 mg IM ONCE PRN 07/04/15 04/02/18 Magnesium Oxide [Mag-Ox] 400 mg PO DAILY 06/07/17 04/02/18 Methocarbamol [Robaxin] 1,000 mg PO Q8H PRN 06/07/17 04/02/18 Gabapentin [Neurontin] 100 mg PO BID 09/12/17 04/02/18 Aspirin 325 mg PO DAILY 02/10/18 04/02/18 Calcium Carb/Vitamin D3/Vit K1 1 tab PO DAILY 02/10/18 04/02/18 [Citracal Soft Chew] Celecoxib [CeleBREX] 200 mg PO BID 02/10/18 04/02/18 Multivitamins, Thera [Multivitamin 1 tab PO DAILY 02/10/18 04/02/18 (formulary)] Rivaroxaban [Xarelto] 20 mg PO HS 02/10/18 04/02/18 Sennosides-Docusate Sodium 1 tab PO DAILY 02/10/18 04/02/18 [Senokot-S] diphenhydrAMINE [Benadryl] 25 mg PO QID PRN 02/10/18 04/02/18 Previous Rx's Medication Instructions Recorded Pantoprazole [Protonix] 40 mg PO AC-BID #60 tablet. 03/30/18 ALPRAZolam [Xanax] 0.25 mg PO TID PRN #90 tab 04/07/18 Anastrozole [Arimidex] 1 mg PO DAILY #90 tab 04/07/18 Bisacodyl [Dulcolax] 10 mg PO DAILY tablet. 04/07/18 Dexamethasone 4 mg PO Q8HR #60 tablet 04/07/18 Folic Acid 1 mg PO DAILY@1200 tab 04/07/18 Hydrocortisone Cream 1 applic TOPICAL TID PRN applic 04/07/18 [Hydrocortisone 1% Cream] INSULIN LISPRO (HumaLOG) [humaLOG] 0 unit SQ ACHS #1 vial 04/07/18 Morphine Sulfate ER [Ms Contin] 30 mg PO Q8H #9 tablet 04/07/18 Morphine Sulfate ER [Ms Contin] 30 mg PO Q8H #90 tablet 04/07/18 Ondansetron [Zofran] 4 mg PO Q6H PRN #45 vial 04/07/18 Polyethylene Glycol 3350 [Miralax] 17 gm PO DAILY PRN powd.pack 04/07/18 Temazepam [Restoril] 15 mg PO HS PRN #3 cap 04/07/18 Thiamine [Vitamin B-1] 100 mg PO DAILY@1200 tab 04/07/18 oxyCODONE-APAP 10-325MG [Percocet 1 each PO Q6HR PRN #60 tab 04/07/18 10-325 mg] oxyCODONE-APAP 10-325MG [Percocet 1 tab PO Q4H PRN #18 tab 04/07/18 10-325 mg] Cephalexin [Keflex] 500 mg PO TID 5 Days #15 cap 04/12/18 Menthol-Camphor Lotion [Sarna 1 applic TOPICAL TID PRN ml 04/12/18 Lotion 0.5%-0.5%] Allergies Allergy/AdvReac Type Severity Reaction Status Date / Time avocado Allergy Anaphylaxis Verified 04/29/18 15:36 Iodinated Contrast- Oral and Allergy Swelling Verified 04/29/18 15:36 IV Dye latex Allergy Rash/Hives/ Verified 04/29/18 15:36 swelling palm oil Allergy Rash/Hives Verified 04/29/18 15:36 shellfish derived [Shellfish] Allergy Swelling Verified 04/29/18 15:36 wheat Allergy Swelling Verified 04/29/18 15:36 coconut AdvReac Nausea & Verified 04/29/18 15:36 Vomiting & Diarrhea artificial sweetener AdvReac Unknown Unknown Uncoded 04/29/18 13:17 Review of Systems ROS Statement: Those systems with pertinent positive or pertinent negative responses have been documented in the HPI. ROS Other: All systems not noted in ROS Statement are negative. Past Medical History Past Medical History: Cancer Additional Past Medical History / Comment(s): FX to HEAD of RADIUS 05/20/15, HX OF MIGRAINE, CHRONIC PAIN RT KNEE, Thoracic fracture 06/05/17, Sprained Left ankle & Left Shoulder, Bilateral Hip pain. breast CA with mets to bone History of Any Multi-Drug Resistant Organisms: None Reported Past Surgical History: Cholecystectomy, Orthopedic Surgery Additional Past Surgical History / Comment(s): SX RT KNEE 3-4, Right Radius repair Additional Past Anesthesia/Blood Transfusion Reaction / Comment(s): STATES TAKES A LONG TIME TO "GO TO SLEEP" Past Psychological History: No Psychological Hx Reported Smoking Status: Former smoker Past Alcohol Use History: None Reported Past Drug Use History: None Reported - Past Family History Mother Family Medical History: Unable to Obtain Additional Family Medical History / Comment(s): PT ADOPTED General Exam - General Exam Comments Initial Comments: GENERAL: Patient is well-developed and well-nourished. Patient is nontoxic and well- hydrated and is in mild distress. ENT: Neck is soft and supple. No significant lymphadenopathy is noted. Oropharynx is clear. Moist mucous membranes. Neck has full range of motion without eliciting any pain. EYES: The sclera were anicteric and conjunctiva were pink and moist. Extraocular movements were intact and pupils were equal round and reactive to light. Eyelids were unremarkable. PULMONARY: Unlabored respirations. Good breath sounds bilaterally. No audible rales rhonchi or wheezing was noted. CARDIOVASCULAR: Patient is tachycardic at about 140 beats a minute ABDOMEN: Patient groans when I touch her belly appears to be very tender SKIN: Skin is clear with no lesions or rashes and otherwise unremarkable. NEUROLOGIC: Patient is is arousable but cannot answer any basic questions. Unable to complete focused exam MUSCULOSKELETAL: Normal extremities with adequate strength and full range of motion. LYMPHATICS: No significant lymphadenopathy is noted PSYCHIATRIC: Unable to evaluate Course Vital Signs 04/29/18 04/29/18 04/29/18 13:03 13:34 13:42 Temperature 102.2 F H Pulse Rate 145 H 151 H Respiratory 16 16 Rate Blood Pressure 98/57 100/72 O2 Sat by Pulse 85 L 100 Oximetry 04/29/18 04/29/18 04/29/18 13:58 14:26 14:57 Temperature Pulse Rate 151 H 112 H 141 H Respiratory 16 16 16 Rate Blood Pressure 83/52 116/63 119/67 O2 Sat by Pulse 99 100 100 Oximetry 04/29/18 15:21 Temperature Pulse Rate 150 H Respiratory 16 Rate Blood Pressure 106/67 O2 Sat by Pulse 100 Oximetry Medical Decision Making - Medical Decision Making EKG sinus tachycardia at 152 bpm MO interval 118 QRS is 68 QT interval is 264 QTC is 419. Patient's EKG shows no ST segment elevation or depression Patient was determined to be septic at 13:42 when we received a rectal temperature of 102 CT of the brain showed no acute abnormality. Patient is a no code and paperwork is with the patient. We are making multiple attempts to call the family so they can determine if he would like surgery are not. CT of the abdomen and pelvis shows moderate amount of pneumoperitoneum in all multiple places in the abdomen there is air-fluid level seen in the region of the uterus patient also has some free fluid in the pelvis. Spoke with Dr. Son Cline he agreed to admit the patient and I consult surgery. I spoke with Dr. Nicole Rivera did not believe this patient being a no code and with cancer was a surgical candidate. We will continue to make attempts at getting a hold of the next of kin - Lab Data Result diagrams: 04/29/18 13:05 04/29/18 14:10 Lab Results 04/29/18 04/29/18 04/29/18 Range/Units 13:00 13:05 13:05 WBC (3.8-10.6) k/uL RBC (3.80-5.40) m/uL Hgb (11.4-16.0) gm/dL Hct (34.0-46.0) % MCV (80.0-100.0) fL MCH (25.0-35.0) pg MCHC (31.0-37.0) g/dL RDW (11.5-15.5) % Plt Count (150-450) k/uL Neutrophils % (Manual) % Band Neutrophils % % Lymphocytes % (Manual) % Monocytes % (Manual) % Eosinophils % (Manual) % Metamyelocytes % % Myelocytes % % Neutrophils # (Manual) (1.3-7.7) k/uL Lymphocytes # (Manual) (1.0-4.8) k/uL Monocytes # (Manual) (0-1.0) k/uL Eosinophils # (Manual) (0-0.7) k/uL Metamyelocytes # (Man) (0) k/uL Myelocytes # (Manual) (0) k/uL Nucleated RBCs (0-0) /100 WBC Polychromasia Hypochromasia Anisocytosis Macrocytosis PT (9.0-12.0) sec INR (<1.2) APTT (22.0-30.0) sec Sodium (137-145) mmol/L Potassium (3.5-5.1) mmol/L Chloride (98-107) mmol/L Carbon Dioxide (22-30) mmol/L Anion Gap mmol/L BUN (7-17) mg/dL Creatinine (0.52-1.04) mg/dL Est GFR (CKD-EPI)AfAm (>60 ml/min/1.73 sqM) Est GFR (CKD-EPI)NonAf (>60 ml/min/1.73 sqM) Glucose (74-99) mg/dL POC Glucose (mg/dL) 39 L (75-99) mg/dL POC Glu Corporate Director Of Pharmacy ID Elda Hairston Plasma Lactic Acid Konstantin 2.9 H* (0.7-2.0) mmol/L Calcium (8.4-10.2) mg/dL Total Bilirubin (0.2-1.3) mg/dL AST (14-36) U/L ALT (9-52) U/L Alkaline Phosphatase (38-126) U/L Ammonia 22 (<30) umol/L Total Creatine Kinase 70 (30-135) U/L CK-MB (CK-2) 0.6 (0.0-2.4) ng/mL CK-MB (CK-2) Rel Index 0.9 Troponin I 0.019 (0.000-0.034) ng/mL Total Protein (6.3-8.2) g/dL Albumin (3.5-5.0) g/dL Urine Color Urine Appearance (Clear) Urine pH (5.0-8.0) Ur Specific [place] (1.001-1.035) Urine Protein (Negative) Urine Glucose (UA) (Negative) Urine Ketones (Negative) Urine Blood (Negative) Urine Nitrite (Negative) Urine Bilirubin (Negative) Urine Urobilinogen (<2.0) mg/dL Ur Leukocyte Esterase (Negative) Urine RBC (0-5) /hpf Urine WBC (0-5) /hpf Urine WBC Clumps (None) /hpf Ur Squamous Epith Cells (0-4) /hpf Urine Bacteria (None) /hpf Granular Casts (0) /lpf Urine Mucus (None) /hpf Urine Opiates Screen (NotDetected) Ur Oxycodone Screen (NotDetected) Urine Methadone Screen (NotDetected) Ur Propoxyphene Screen (NotDetected) Ur Barbiturates Screen (NotDetected) U Tricyclic Antidepress (NotDetected) Ur Phencyclidine Scrn (NotDetected) Ur Amphetamines Screen (NotDetected) U Methamphetamines Scrn (NotDetected) U Benzodiazepines Scrn (NotDetected) Urine Cocaine Screen (NotDetected) U Marijuana (THC) Screen (NotDetected) 04/29/18 04/29/18 04/29/18 Range/Units 13:05 13:05 13:05 WBC 16.4 H (3.8-10.6) k/uL RBC 2.48 L (3.80-5.40) m/uL Hgb 7.8 L D (11.4-16.0) gm/dL Hct 23.6 L (34.0-46.0) % MCV 95.5 (80.0-100.0) fL MCH 31.3 (25.0-35.0) pg MCHC 32.8 (31.0-37.0) g/dL RDW 19.3 H (11.5-15.5) % Plt Count 269 (150-450) k/uL Neutrophils % (Manual) 73 % Band Neutrophils % 8 % Lymphocytes % (Manual) 3 % Monocytes % (Manual) 7 % Eosinophils % (Manual) 1 % Metamyelocytes % 9 % Myelocytes % 1 % Neutrophils # (Manual) 13.20 H (1.3-7.7) k/uL Lymphocytes # (Manual) 0.49 L (1.0-4.8) k/uL Monocytes # (Manual) 1.15 H (0-1.0) k/uL Eosinophils # (Manual) 0.16 (0-0.7) k/uL Metamyelocytes # (Man) 1.48 H (0) k/uL Myelocytes # (Manual) 0.16 H (0) k/uL Nucleated RBCs 5 H (0-0) /100 WBC Polychromasia Present Hypochromasia Slight Anisocytosis Slight Macrocytosis Slight PT 10.9 (9.0-12.0) sec INR 1.1 (<1.2) APTT 23.7 (22.0-30.0) sec Sodium 134 L (137-145) mmol/L Potassium 6.4 H* (3.5-5.1) mmol/L Chloride 103 (98-107) mmol/L Carbon Dioxide 19 L (22-30) mmol/L Anion Gap 12 mmol/L BUN 73 H (7-17) mg/dL Creatinine 1.93 H (0.52-1.04) mg/dL Est GFR (CKD-EPI)AfAm 34 (>60 ml/min/1.73 sqM) Est GFR (CKD-EPI)NonAf 30 (>60 ml/min/1.73 sqM) Glucose 42 L* (74-99) mg/dL POC Glucose (mg/dL) (75-99) mg/dL POC Glu Corporate Director Of Pharmacy ID Plasma Lactic Acid Konstantin (0.7-2.0) mmol/L Calcium 7.0 L (8.4-10.2) mg/dL Total Bilirubin 0.7 (0.2-1.3) mg/dL AST 72 H (14-36) U/L ALT 51 (9-52) U/L Alkaline Phosphatase 311 H (38-126) U/L Ammonia (<30) umol/L Total Creatine Kinase (30-135) U/L CK-MB (CK-2) (0.0-2.4) ng/mL CK-MB (CK-2) Rel Index Troponin I (0.000-0.034) ng/mL Total Protein 4.4 L (6.3-8.2) g/dL Albumin 2.0 L (3.5-5.0) g/dL Urine Color Urine Appearance (Clear) Urine pH (5.0-8.0) Ur Specific [place] (1.001-1.035) Urine Protein (Negative) Urine Glucose (UA) (Negative) Urine Ketones (Negative) Urine Blood (Negative) Urine Nitrite (Negative) Urine Bilirubin (Negative) Urine Urobilinogen (<2.0) mg/dL Ur Leukocyte Esterase (Negative) Urine RBC (0-5) /hpf Urine WBC (0-5) /hpf Urine WBC Clumps (None) /hpf Ur Squamous Epith Cells (0-4) /hpf Urine Bacteria (None) /hpf Granular Casts (0) /lpf Urine Mucus (None) /hpf Urine Opiates Screen (NotDetected) Ur Oxycodone Screen (NotDetected) Urine Methadone Screen (NotDetected) Ur Propoxyphene Screen (NotDetected) Ur Barbiturates Screen (NotDetected) U Tricyclic Antidepress (NotDetected) Ur Phencyclidine Scrn (NotDetected) Ur Amphetamines Screen (NotDetected) U Methamphetamines Scrn (NotDetected) U Benzodiazepines Scrn (NotDetected) Urine Cocaine Screen (NotDetected) U Marijuana (THC) Screen (NotDetected) 04/29/18 04/29/18 04/29/18 Range/Units 13:20 13:23 14:10 WBC (3.8-10.6) k/uL RBC (3.80-5.40) m/uL Hgb (11.4-16.0) gm/dL Hct (34.0-46.0) % MCV (80.0-100.0) fL MCH (25.0-35.0) pg MCHC (31.0-37.0) g/dL RDW (11.5-15.5) % Plt Count (150-450) k/uL Neutrophils % (Manual) % Band Neutrophils % % Lymphocytes % (Manual) % Monocytes % (Manual) % Eosinophils % (Manual) % Metamyelocytes % % Myelocytes % % Neutrophils # (Manual) (1.3-7.7) k/uL Lymphocytes # (Manual) (1.0-4.8) k/uL Monocytes # (Manual) (0-1.0) k/uL Eosinophils # (Manual) (0-0.7) k/uL Metamyelocytes # (Man) (0) k/uL Myelocytes # (Manual) (0) k/uL Nucleated RBCs (0-0) /100 WBC Polychromasia Hypochromasia Anisocytosis Macrocytosis PT (9.0-12.0) sec INR (<1.2) APTT (22.0-30.0) sec Sodium (137-145) mmol/L Potassium (3.5-5.1) mmol/L Chloride (98-107) mmol/L Carbon Dioxide (22-30) mmol/L Anion Gap mmol/L BUN (7-17) mg/dL Creatinine (0.52-1.04) mg/dL Est GFR (CKD-EPI)AfAm (>60 ml/min/1.73 sqM) Est GFR (CKD-EPI)NonAf (>60 ml/min/1.73 sqM) Glucose (74-99) mg/dL POC Glucose (mg/dL) 172 H 141 H (75-99) mg/dL POC Glu Corporate Director Of Pharmacy ID Petitpren, Elda Petitpren, Elda Plasma Lactic Acid Konstantin (0.7-2.0) mmol/L Calcium (8.4-10.2) mg/dL Total Bilirubin (0.2-1.3) mg/dL AST (14-36) U/L ALT (9-52) U/L Alkaline Phosphatase (38-126) U/L Ammonia (<30) umol/L Total Creatine Kinase (30-135) U/L CK-MB (CK-2) (0.0-2.4) ng/mL CK-MB (CK-2) Rel Index Troponin I (0.000-0.034) ng/mL Total Protein (6.3-8.2) g/dL Albumin (3.5-5.0) g/dL Urine Color Urine Appearance (Clear) Urine pH (5.0-8.0) Ur Specific [place] (1.001-1.035) Urine Protein (Negative) Urine Glucose (UA) (Negative) Urine Ketones (Negative) Urine Blood (Negative) Urine Nitrite (Negative) Urine Bilirubin (Negative) Urine Urobilinogen (<2.0) mg/dL Ur Leukocyte Esterase (Negative) Urine RBC (0-5) /hpf Urine WBC (0-5) /hpf Urine WBC Clumps (None) /hpf Ur Squamous Epith Cells (0-4) /hpf Urine Bacteria (None) /hpf Granular Casts (0) /lpf Urine Mucus (None) /hpf Urine Opiates Screen Detected H (NotDetected) Ur Oxycodone Screen Detected H (NotDetected) Urine Methadone Screen Not Detected (NotDetected) Ur Propoxyphene Screen Not Detected (NotDetected) Ur Barbiturates Screen Not Detected (NotDetected) U Tricyclic Antidepress Not Detected (NotDetected) Ur Phencyclidine Scrn Not Detected (NotDetected) Ur Amphetamines Screen Not Detected (NotDetected) U Methamphetamines Scrn Not Detected (NotDetected) U Benzodiazepines Scrn Not Detected (NotDetected) Urine Cocaine Screen Not Detected (NotDetected) U Marijuana (THC) Screen Not Detected (NotDetected) 04/29/18 04/29/18 04/29/18 Range/Units 14:10 15:05 15:14 WBC (3.8-10.6) k/uL RBC (3.80-5.40) m/uL Hgb (11.4-16.0) gm/dL Hct (34.0-46.0) % MCV (80.0-100.0) fL MCH (25.0-35.0) pg MCHC (31.0-37.0) g/dL RDW (11.5-15.5) % Plt Count (150-450) k/uL Neutrophils % (Manual) % Band Neutrophils % % Lymphocytes % (Manual) % Monocytes % (Manual) % Eosinophils % (Manual) % Metamyelocytes % % Myelocytes % % Neutrophils # (Manual) (1.3-7.7) k/uL Lymphocytes # (Manual) (1.0-4.8) k/uL Monocytes # (Manual) (0-1.0) k/uL Eosinophils # (Manual) (0-0.7) k/uL Metamyelocytes # (Man) (0) k/uL Myelocytes # (Manual) (0) k/uL Nucleated RBCs (0-0) /100 WBC Polychromasia Hypochromasia Anisocytosis Macrocytosis PT (9.0-12.0) sec INR (<1.2) APTT (22.0-30.0) sec Sodium (137-145) mmol/L Potassium 6.4 H* (3.5-5.1) mmol/L Chloride (98-107) mmol/L Carbon Dioxide (22-30) mmol/L Anion Gap mmol/L BUN (7-17) mg/dL Creatinine (0.52-1.04) mg/dL Est GFR (CKD-EPI)AfAm (>60 ml/min/1.73 sqM) Est GFR (CKD-EPI)NonAf (>60 ml/min/1.73 sqM) Glucose (74-99) mg/dL POC Glucose (mg/dL) 104 H (75-99) mg/dL POC Glu Corporate Director Of Pharmacy ID Elda Hairston Plasma Lactic Acid Konstantin (0.7-2.0) mmol/L Calcium (8.4-10.2) mg/dL Total Bilirubin (0.2-1.3) mg/dL AST (14-36) U/L ALT (9-52) U/L Alkaline Phosphatase (38-126) U/L Ammonia (<30) umol/L Total Creatine Kinase (30-135) U/L CK-MB (CK-2) (0.0-2.4) ng/mL CK-MB (CK-2) Rel Index Troponin I (0.000-0.034) ng/mL Total Protein (6.3-8.2) g/dL Albumin (3.5-5.0) g/dL Urine Color Yellow Urine Appearance Cloudy H (Clear) Urine pH 6.0 (5.0-8.0) Ur Specific [place] 1.013 (1.001-1.035) Urine Protein 2+ H (Negative) Urine Glucose (UA) Negative (Negative) Urine Ketones Negative (Negative) Urine Blood Moderate H (Negative) Urine Nitrite Negative (Negative) Urine Bilirubin Negative (Negative) Urine Urobilinogen 2.0 (<2.0) mg/dL Ur Leukocyte Esterase Large H (Negative) Urine RBC 8 H (0-5) /hpf Urine WBC 58 H (0-5) /hpf Urine WBC Clumps Few H (None) /hpf Ur Squamous Epith Cells 2 (0-4) /hpf Urine Bacteria Rare H (None) /hpf Granular Casts 4 (0) /lpf Urine Mucus Occasional H (None) /hpf Urine Opiates Screen (NotDetected) Ur Oxycodone Screen (NotDetected) Urine Methadone Screen (NotDetected) Ur Propoxyphene Screen (NotDetected) Ur Barbiturates Screen (NotDetected) U Tricyclic Antidepress (NotDetected) Ur Phencyclidine Scrn (NotDetected) Ur Amphetamines Screen (NotDetected) U Methamphetamines Scrn (NotDetected) U Benzodiazepines Scrn (NotDetected) Urine Cocaine Screen (NotDetected) U Marijuana (THC) Screen (NotDetected) Critical Care Time Critical Care Time: Yes Total Critical Care Time: 35 Disposition Clinical Impression: Pneumoperitoneum, Hyperkalemia, Anemia, Renal insufficiency, Sepsis Disposition: ADMITTED IP TO THIS [facility] Referrals: Tony Olson MD [Primary Care Provider] - 1-2 days Time of Disposition: 15:50
[2018-04-29 13:29] LABS: INR 1.1 (<1.2); Partial Thromboplastin Time 23.7 sec (22.0-30.0); Prothrombin Time 10.9 sec (9.0-12.0)
[2018-04-29] MEDS ORDERED: diphenhydrAMINE 50 MG/ML 1 ML VIAL IVP STA (13:30)
[2018-04-29] MEDS ORDERED: DEXTROSE 5%-0.9% NACL 1,000 ML IV SCH (13:30)
[2018-04-29] MEDS ORDERED: FAMOTIDINE 20 MG/2 ML VIAL IV STA (13:30)
[2018-04-29] MEDS ORDERED: methylPREDNISolone SOD SUCCI 125 MG/2 ML VIAL IV STA (13:30)
[2018-04-29 13:31] LABS: Anisocytosis Slight; HCT 23.6 % (34.0-46.0); Hypochromasia Slight; MCH 31.3 pg (25.0-35.0); MCHC 32.8 g/dL (31.0-37.0); MCV 95.5 fL (80.0-100.0); Macrocytosis Slight; Mean Platelet Volume 7.5; Platelet Count 269 k/uL (150-450); RBC 2.48 m/uL (3.80-5.40); RDW 19.3 % (11.5-15.5)
[2018-04-29 13:32] LABS: HGB 7.8 gm/dL (11.4-16.0)
[2018-04-29 13:34] LABS: Total Bilirubin 0.7 mg/dL (0.2-1.3); Total Protein 4.4 g/dL (6.3-8.2)
[2018-04-29 13:34] LABS: Glucose,Whole Blood 172 mg/dL (75-99)
[2018-04-29 13:43] LABS: Lactic Acid, Venous 2.9 mmol/L (0.7-2.0); Potassium 6.4 mmol/L (3.5-5.1)
[2018-04-29] MEDS ORDERED: ACETAMINOPHEN IV (For NPO) 1,000 MG in EMPTY BAG 1 BAG IVPB STA (13:50)
[2018-04-29 13:54] LABS: Creatine Kinase MB 0.6 ng/mL (0.0-2.4); Troponin I 0.019 ng/mL (0.000-0.034)
[2018-04-29 14:06] LABS: Amphetamine Screen,Urine Not Detected (NotDetected); Barbiturate Screen,Urine Not Detected (NotDetected); Benzodiazepines Screen,Urine Not Detected (NotDetected); Cocaine Screen,Urine Not Detected (NotDetected); Methadone Screen, Urine Not Detected (NotDetected); Opiate Screen,Urine Detected (NotDetected); Oxycodone Screen, Urine Detected (NotDetected); Phencyclidine Screen,Urine Not Detected (NotDetected); Tricyclic Antidepressant,Urine Not Detected (NotDetected); Urn Cannabinoid Scrn Not Detected (NotDetected)
[2018-04-29 14:13] LABS: Band Neutrophils % 8 %; Eosinophils # (M) 0.16 k/uL (0-0.7); Lymphocytes # (M) 0.49 k/uL (1.0-4.8); Metamyelocytes # (M) 1.48 k/uL (0); Metamyelocytes % 9 %; Monocytes # (M) 1.15 k/uL (0-1.0); Myelocytes # (M) 0.16 k/uL (0); Myelocytes % 1 %; Neutrophils % (M) 73 %; Nucleated Red Blood Cells 5 /100 WBC (0-0); Total Cells Counted 200; WBC 16.4 k/uL (3.8-10.6)
[2018-04-29 14:13] LABS: Glucose,Whole Blood 141 mg/dL (75-99)
[2018-04-29 14:14] LABS: Polychromasia Present
[2018-04-29] MEDS ORDERED: IBUPROFEN IV 600 MG in SODIUM CHLORIDE 0.9% 250 ML IV ONE (15:00)
[2018-04-29] MEDS ORDERED: SODIUM CHLORIDE 0.9% 2,000 ML IV ONE (15:02)
[2018-04-29] MEDS ORDERED: cefTRIAXone 2,000 MG in SODIUM CHLORIDE 0.9% 100 ML IVPB STA (15:02)
[2018-04-29 15:19] LABS: Glucose,Whole Blood 104 mg/dL (75-99)
--- NOTE | 2018-04-29 15:20 | CT ---
EXAMINATION TYPE: CT brain wo con DATE OF EXAM: 04/29/2018 COMPARISON: NONE HISTORY: Altered mental status. CT DLP: 2306 mGycm. Automated Exposure Control for Dose Reduction was Utilized. TECHNIQUE: CT scan of the head is performed without contrast. FINDINGS: There is no acute intracranial hemorrhage, mass effect, or midline shift identified. No suspicious extra cranial fluid collection is seen. The ventricles and sulci are within normal limits in size. The globes are intact and the visualized sinuses are clear. Multifocal calvarial osseous me tastasis is seen with the largest lesion in the right frontal bone measuring up to 3 cm with near ero marcella of the inner table. 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 No acute intracrani al hemorrhage, mass effect, or midline shift is seen.
[2018-04-29] MEDS ORDERED: PIPERACILLIN-TAZOBACTAM 3.375 GM in DEXTROSE/WATER 1 50ML.BAG IVPB STA (15:39)
--- NOTE | 2018-04-29 15:40 | CT ---
EXAMINATION TYPE: CT abdomen pelvis wo con DATE OF EXAM: 04/29/2018 COMPARISON: 01/23/2018 HISTORY: Low blood sugar, increased heart rate and lethargy. Pt poor historian. CT DLP: 966 mGycm Automated exposure control for dose reduction was used. TECHNIQUE: Helical acquisition of images was performed from the lung bases through the pelvis. FINDINGS: LUNG BASES: High density posterior basilar segment bilateral atelectasis is present. Right breast car cinoma and right abnormal axillary lymph node containing a biopsy marker is appreciated. LIVER/GB: Unremarkable unenhanced morphology. Gallbladder is surgically absent. PANCREAS: Pancreatic parenchymal atrophy is seen. SPLEEN: No significant abnormality is seen. ADRENALS: Minimal thickening of the left adrenal gland is seen although this maintains a normal adren iform shape likely related to adrenal gland hyperplasia. KIDNEYS: No hydronephrosis or nephrolithiasis is seen. FREE AIR: Large amount of pneumoperitoneum is seen throughout the abdomen. Air is also noted within the posterior mediastinum adjacent to the esophagus. Free air is also seen adjacent to the lesser cur vature. Additionally there is hiatal expected region of the uterus with an air-fluid level using the urinary bladder contains a Arias catheter. Some inflammatory changes seen in the left mid abdomen. ADENOPATHY: No greater than 1 cm short axis lymph node within the abdomen or pelvis. REPRODUCTIVE ORGANS: No significant abnormality is seen URINARY BLADDER: No significant abnormality is seen. OSSEOUS STRUCTURES: Diffuse osseous metastasis and postoperative changes partially visualized of the left shoulder are again seen as seen on the prior exams. Right hip arthroplasty is also seen. Multip le compression deformities are similar to the priors. These appear pathologic. BOWEL: Inflammatory change surrounds the small bowel abutting the decompressed urinary bladder right paracentrally on image 65 and within the left mid abdomen such as on series 3 image 42 and 43. No di stinct site of perforation is seen. Moderate colonic stool burden is noted. IMPRESSION: MODERATE PNEUMOPERITONEUM THERE IS MULTIFOCAL WITH FOCI ON THE ESOPHAGUS, LESSER CURVATURE THE STOMAC H, THROUGHOUT THE ABDOMEN, AND WITHIN THE LEFT HEMIPELVIS WITH AIR-FLUID LEVEL SEEN IN THE REGION OF THE UTERUS. ETIOLOGY FOR THE HOLLOW VISCERAL PERFORATION IS UNCLEAR ALTHOUGH FAVORED TO BE IN THE PEL VIS. AIR-FLUID LEVEL IN THE REGION OF THE HIGH DENSITY UTERUS THAT ABUTS THE DECOMPRESSED URINARY TRACY DDER COULD RELATE TO FISTULA WITH HIGH DENSITY IN THE ENDOMETRIUM RELATED TO BLOOD PRODUCTS OR LEIOMY MEY. ADJACENT FREE FLUID HOWEVER IS NEW FROM THE PRIOR. FINDINGS RELAYED TO DR. HALL BY DR. HAMMOND AT 1 536 ON 04/29/2018.
[2018-04-29 15:43] LABS: Appearance,Urine Cloudy (Clear); Bacteria,Urine Rare /hpf; Bilirubin,Urine Negative (Negative); Blood,Urine Moderate (Negative); Color,Urine Yellow; Glucose,Urine (UA) Negative (Negative); Granular Casts,Urine 4 /lpf (0); Ketones,Urine Negative (Negative); Leukocyte Esterase,Urine Large (Negative); Mucus,Urine Occasional /hpf; Nitrite,Urine Negative (Negative); Protein,Urine 2+ (Negative); RBC,Urine 8 /hpf (0-5); Specific Gravity,Urine 1.013 (1.001-1.035); Squamous Epithelial Cell,Urine 2 /hpf (0-4); WBC,Urine 58 /hpf (0-5)
[2018-04-29] MEDS ORDERED: CALCIUM CHLORIDE 1,000 MG in SODIUM CHLORIDE 0.9% 100 ML IVPB STA (15:51)
[2018-04-29] MEDS ORDERED: SODIUM BICARB 8.4% 50 ML SYR (1 MEQ/ML) IV ONE (15:52)
[2018-04-29] MEDS ORDERED: INSULIN REGULAR 100 UNIT/ML VIAL IV ONE (15:53)
[2018-04-29] MEDS ORDERED: SODIUM POLYSTYRENE SULFONATE 30 GM/120 ML BOTTLE RECTAL STA (15:53)
[2018-04-29] MEDS ORDERED: SODIUM CHLORIDE 0.9% 1,000 ML IV ONE (15:54)
[2018-04-29] MEDS ORDERED: SODIUM BICARB 8.4% 50 ML SYR (1 MEQ/ML) IV STA (16:51)
[2018-04-29 16:53] LABS: Glucose,Whole Blood 106 mg/dL (75-99)
[2018-04-29 18:12] LABS: Glucose,Whole Blood 156 mg/dL (75-99)
[2018-04-29] MEDS ORDERED: MORPHINE SULFATE 4 MG/ML SYRINGE IVP PRN (18:24)
[2018-04-29] MEDS ORDERED: LORazepam 2 MG/ML INJ IV PRN ×2 (18:25→20:43)
[2018-04-29] MEDS ORDERED: SODIUM CHLORIDE 0.9% 1,000 ML IV SCH (18:30)
[2018-04-29 19:41] LABS: Anisocytosis Slight; Hypochromasia Marked; MCH 30.2 pg (25.0-35.0); MCHC 30.4 g/dL (31.0-37.0); MCV 99.5 fL (80.0-100.0); Macrocytosis Moderate; Mean Platelet Volume 7.7; Platelet Count 281 k/uL (150-450); RBC 1.91 m/uL (3.80-5.40); RDW 18.9 % (11.5-15.5)
--- NOTE | 2018-04-29 19:42 | XR ---
EXAMINATION TYPE: XR chest 2V DATE OF EXAM: 04/29/2018 COMPARISON: 9 and 18 HISTORY: Shortness of breath and breast cancer. TECHNIQUE: Frontal and lateral views of the chest are obtained. FINDINGS: Low lung volumes creating crowding of the pulmonary vasculature and multifocal linear atel ectasis. Cardia mediastinal silhouette remains relatively enlarged given lung volumes. Pneumoperitone um is redemonstrated. Left humeral arthroplasty is seen. IMPRESSION: Pneumoperitoneum which was communicated with the ER physician at [address] abdome n pelvis. Low lung volumes. Crowding of the pulmonary vasculature and multifocal atelectasis. No foca l consolidation to suggest pneumonia.
[2018-04-29 19:49] LABS: HGB 5.8 gm/dL (11.4-16.0)
[2018-04-29 20:23] LABS: Band Neutrophils % 9 %; Lymphocytes # (M) 0.16 k/uL (1.0-4.8); Monocytes # (M) 1.13 k/uL (0-1.0); Neutrophils % (M) 83 %; Nucleated Red Blood Cells 4 /100 WBC (0-0); Total Cells Counted 100; WBC 16.1 k/uL (3.8-10.6)
[2018-04-29 20:24] LABS: Polychromasia Present
[2018-04-29 20:27] VITALS: BP 108/74; BMI 26.4
[2018-04-29] MEDS ORDERED: SCOPOLAMINE 1.5MG/72HR PATCH TRANSDERM SCH (20:45)
[2018-04-29] MEDS: MORPHINE SULFATE (100 MG/2 ML) 100 MG in SODIUM CHLORIDE 0.9% 100 ML IV SCH (21:41)
[2018-04-29] MEDS: SODIUM CHLORIDE 0.9% 1,000 ML IV SCH (21:54)
--- NOTE | 2018-04-29 22:35 | HP ---
HISTORY AND PHYSICAL CHIEF COMPLAINT: Lethargy. HISTORY OF PRESENT ILLNESS: This 52-year-old woman with a past medical history of multiple medical problems including fracture head of the radius, history of migraine, chronic pain, right cholecystectomy being followed Dr. Fletcher in the outpatient setting was recently found to have CA of breast with multiple metastasis. Most recently, the patient in the hospital with back pain. Patient had sacral tumor. The patient had radiation. Subsequently patient is in rehab for continued monitoring and rehabilitation. In the rehab the patient is apparently complaining abdominal pain and this morning the patient became unresponsive and the patient was taken to [facility] for further evaluation and treatment. Patient is NO CODE. The patient was found to be hypoglycemic. Sugars were in the 40. Currently the patient is unable to provide a clear history. Most history taken from my discussion with the ER physician and discussion with staff and discussion with hospice at the bedside. CT scan of the abdomen and pelvis was done at the ER which showed significant free air and moderate pneumoperitoneum which is multifocal with induced of stomach and throughout the abdomen and within the left hemipelvis. Also air fluid level is also seen in the region of uterus. Also viscus perforation was suspected and the patient admitted for evaluation. Patient started on broad-spectrum IV antibiotics. As mentioned earlier, the patient is NO CODE, NO CPR, NO VENT, and the patient is not a candidate for aggressive treatment. Surgery consultation has been sought as well. PAST MEDICAL HISTORY: History of breast cancer with multiple metastasis and recent history as mentioned earlier. History of fracture radius, history of migraine, history of right knee pain, history of cholecystectomy. MEDICATIONS: Prior to admission include home medications are: 1. Oxycodone 10 mg q.4h p.r.n. 2. Glucotrol 5 mg a.c. b.i.d. 3. Bentyl 20 mg q.i.d. p.r.n. 4. Kenalog 1 application b.i.d. 5. Vitamin B1 100 mg. 6. Colace/Senokot-S 1 tablet p.o. daily. 7. Xarelto 20 mg p.o. q.h.s. 8. MiraLAX 17 g p.o. daily p.r.n. 9. Zofran 4 mg q.6h p.r.n. 10.Omeprazole 20 mg p.o. daily. 11.Multivitamins 1 p.o. daily. 12.30 mg p.o. q.8 p.r.n. 13.Cephalexin 1000 mg p.o. q.8h p.r.n. 14.Biofreeze 1 application t.i.d. 15.Magnesium oxide 400 mg p.o. daily. 16.Claritin 10 mg p.o. daily. 17.Aspercreme 1 application t.i.d. 18.NovoLog t.i.d. 19.Hydrocortisone cream 1 application t.i.d. 20.Neurontin 100 mg p.o. b.i.d. 21.Folic acid 1 mg p.o. daily. 22.EpiPen 0.3 mg p.r.n. 23.Dexamethasone 4 mg p.o. q.h.s. 24.Zyrtec 10 mg p.o. daily. 25.Celebrex 200 mg p.o. b.i.d. 26.Vitamin D3 1 tablet p.o. daily. 27.Dulcolax 10 mg b.i.d. 28.Aspirin 325 mg daily. 29.Arimidex 1 mg p.o. daily. ALLERGIES: AVACARD, IODINATED CONTRAST AND LATEX, PALM OIL, SHELLFISH, WHEAT, COCONUT AND ARTIFICIAL SWEETENER. Family history, social history and review of systems could not be taken. The patient is adopted. PHYSICAL EXAM: Patient is stuporous. Pulse 106, blood pressure 130/35, respiration 18, temperature 98.8, pulse ox 100 percent on 2 L. HEENT: Conjunctivae normal. Oral mucosa moist. Neck is no jugular venous distention. No carotid bruit. No lymph node enlargement. CARDIOVASCULAR: S1, S2. RESPIRATORY: Breath sounds diminished in the bases. A few scattered rhonchi. ABDOMEN: Soft, distended. Mild diffuse tenderness present. Bowel sounds absent. LEGS: No edema, no swelling. NERVOUS SYSTEM: Higher functions as mentioned. Moves all 4 limbs. No focal motor deficit. LYMPHATICS: No lymphadenopathy in the neck, axillae, groin. SKIN: No ulcer, rash, bleeding. LABS: At this time shows UA noted. WBC 16, hemoglobin 7.8, sodium 130, potassium 6.4, creatinine 1.93, plasma lactic 92.9. ASSESSMENT: 1. Abdominal viscus perforation with possible peritonitis and sepsis. 2. Change in mental status secondary to metabolic acidosis secondary to sepsis. 3. Hyperkalemia. 4. Increased lactic acid. 5. Increased WBC. 6. Anemia. 7. History of carcinoma breast with metastasis. 8. History of recent radiation to the sacrum. 9. History of fracture radius. 10.History of thoracic infection. 11.History of bilateral hip pain. 12.History of breast cancer with metastasis. 13.History of cholecystectomy. 14.Remote history of nicotine dependence. 15.NO CODE, NO CPR, NO VENT. RECOMMENDATIONS AND DISCUSSION: In this 52-year-old woman who presented with multiple complex medical issues, we will monitor the patient closely. Continue the current management and symptomatic treatment. As mentioned earlier this patient has got extensive metastasis and has extremely grave prognosis. The patient is not a surgical candidate. I discussed Dr. Rivera and also ER physician. I also discussed with the family. I would recommend continue the IV antibiotics. The prognosis extremely guarded because of multiple complex medical issues and the family will get in touch with the other family members and continue to monitor. Prognosis guarded. Further recommendations to follow. See orders for details. MMODL / IJN: [id number] / MTDD
[2018-04-30] MEDS ORDERED: PIPERACILLIN-TAZOBACTAM 3.375 GM in DEXTROSE/WATER 1 50ML.BAG IVPB SCH
[2018-04-30] MEDS ORDERED: ACETAMINOPHEN SUPPOSITORY 650 MG SUPP RECTAL PRN (08:55)
[2018-04-30] MEDS ORDERED: ACETAMINOPHEN IV (For NPO) 1,000 MG in EMPTY BAG 1 BAG IVPB PRN (12:32)
--- NOTE | 2018-04-30 14:59 | P.PN ---
Subjective Progress Note Date: 04/30/18 Principal diagnosis: Altered mental status I am dictating progress note for Dr. Cline Interval history: This is a 52-year-old female who has a past medical history significant for metastatic breast cancer. Patient was at a snf and she is a no code. Patient was found to be a partly all night long and blood sugars were in the 40s all night long. They called EMS because she continued to be lethargic today EMS arrived blood sugar was 60 for them. Patient is unable to give any history and there is no family member with the patient and there is no caregiver with the patient. Patient was admitted to the inpatient unit. Dr. Cline hard spent in discussion with family, CODE STATUS changed to DO NOT RESUSCITATE with comfort care 04/30/2018 Patient was seen and examined this morning. She is continued to be lethargic, not in any acute discomfort. She is on IV morphine drip for comfort. She is using oxygen per nasal cannula. Family at bedside. Objective - Vital Signs Vital signs: Vital Signs Temp 102.7 F H 04/30/18 08:00 Pulse 144 H 04/30/18 12:00 Resp 12 04/30/18 12:00 BP 108/74 04/29/18 20:05 Pulse Ox 98 04/30/18 04:00 Intake & Output 04/29/18 04/30/18 04/30/18 18:59 06:59 18:59 Intake Total 265 100 Output Total 1200 Balance -935 100 Weight 69.717 kg 78.5 kg Intake: Intake, IV Titration 265 100 Amount Dextrose 5%-0.9% NaCl 1, 225 000 ml @ 75 mls/hr IV . [id number] ESTEFANY Rx#:[id number] Sodium Chloride 0.9% 1, 40 100 000 ml @ 20 mls/hr IV . Q24H ESTEFANY Rx#:[id number] Oral 0 Output: Urine 1200 Other: Voiding Method Indwelling Catheter Indwelling Catheter - Exam PHYSICAL EXAM: VITAL SIGNS: as mentioned above GENERAL: Patient is laying bed, lethargic, noted any acute discomfort HEENT: Noormocephalic CARDIOVASCULAR: S1, S2 muffled. No murmur RESPIRATION: Breath sounds diminished . ABDOMEN: Soft, .Bowel sounds heard. LEGS: No edema. no swelling Active Medications Acetaminophen (Tylenol Suppository) 650 mg RECTAL Q4HR PRN PRN Reason: Fever and/or Mild Pain Last Admin: 04/30/18 10:45 Dose: 650 mg Morphine Sulfate 100 mg/ (Sodium Chloride) 102 mls @ 1.02 mls/hr IV .Q24H ESTEFANY; Protocol Last Admin: 04/29/18 21:41 Dose: 1 mg/hr, 1.02 mls/hr Sodium Chloride (Saline 0.9%) 1,000 mls @ 20 mls/hr IV .Q24H ESTEFANY Last Admin: 04/29/18 21:54 Dose: 20 mls/hr Acetaminophen 1,000 mg/ IV (Solution) 100 mls @ 400 mls/hr IVPB Q4HR PRN PRN Reason: Fever Stop: 05/01/18 00:14 Lorazepam (Ativan) 1 mg IV Q6HR PRN PRN Reason: Anxiety Scopolamine (Transderm-Scop 1.5mg/72hr Patch) 1 patch TRANSDERM Q72H ESTEFANY Last Admin: 04/29/18 21:41 Dose: 1 patch - Labs CBC & Chem 7: 04/29/18 19:00 04/29/18 14:10 Labs: Abnormal Lab Results - Last 24 Hours (Table) 04/29/18 04/29/18 04/29/18 Range/Units 14:10 15:05 15:14 WBC (3.8-10.6) k/uL RBC (3.80-5.40) m/uL Hgb (11.4-16.0) gm/dL Hct (34.0-46.0) % MCHC (31.0-37.0) g/dL RDW (11.5-15.5) % Neutrophils # (Manual) (1.3-7.7) k/uL Lymphocytes # (Manual) (1.0-4.8) k/uL Monocytes # (Manual) (0-1.0) k/uL Nucleated RBCs (0-0) /100 WBC Potassium 6.4 H* (3.5-5.1) mmol/L POC Glucose (mg/dL) 104 H (75-99) mg/dL Plasma Lactic Acid Konstantin (0.7-2.0) mmol/L Urine Appearance Cloudy H (Clear) Urine Protein 2+ H (Negative) Urine Blood Moderate H (Negative) Ur Leukocyte Esterase Large H (Negative) Urine RBC 8 H (0-5) /hpf Urine WBC 58 H (0-5) /hpf Urine WBC Clumps Few H (None) /hpf Urine Bacteria Rare H (None) /hpf Urine Mucus Occasional H (None) /hpf 04/29/18 04/29/18 04/29/18 Range/Units 16:25 17:58 19:00 WBC (3.8-10.6) k/uL RBC (3.80-5.40) m/uL Hgb (11.4-16.0) gm/dL Hct (34.0-46.0) % MCHC (31.0-37.0) g/dL RDW (11.5-15.5) % Neutrophils # (Manual) (1.3-7.7) k/uL Lymphocytes # (Manual) (1.0-4.8) k/uL Monocytes # (Manual) (0-1.0) k/uL Nucleated RBCs (0-0) /100 WBC Potassium (3.5-5.1) mmol/L POC Glucose (mg/dL) 106 H 156 H (75-99) mg/dL Plasma Lactic Acid Konstantin 4.2 H* (0.7-2.0) mmol/L Urine Appearance (Clear) Urine Protein (Negative) Urine Blood (Negative) Ur Leukocyte Esterase (Negative) Urine RBC (0-5) /hpf Urine WBC (0-5) /hpf Urine WBC Clumps (None) /hpf Urine Bacteria (None) /hpf Urine Mucus (None) /hpf 04/29/18 Range/Units 19:00 WBC 16.1 H (3.8-10.6) k/uL RBC 1.91 L (3.80-5.40) m/uL Hgb 5.8 L* D (11.4-16.0) gm/dL Hct 19.0 L* (34.0-46.0) % MCHC 30.4 L (31.0-37.0) g/dL RDW 18.9 H (11.5-15.5) % Neutrophils # (Manual) 14.80 H (1.3-7.7) k/uL Lymphocytes # (Manual) 0.16 L (1.0-4.8) k/uL Monocytes # (Manual) 1.13 H (0-1.0) k/uL Nucleated RBCs 4 H (0-0) /100 WBC Potassium (3.5-5.1) mmol/L POC Glucose (mg/dL) (75-99) mg/dL Plasma Lactic Acid Konstantin (0.7-2.0) mmol/L Urine Appearance (Clear) Urine Protein (Negative) Urine Blood (Negative) Ur Leukocyte Esterase (Negative) Urine RBC (0-5) /hpf Urine WBC (0-5) /hpf Urine WBC Clumps (None) /hpf Urine Bacteria (None) /hpf Urine Mucus (None) /hpf Microbiology - Last 24 Hours (Table) 04/29/18 14:10 Blood Culture Gram Stain - Preliminary Blood 04/29/18 14:10 Blood Culture - Final Blood Assessment and Plan Assessment: 1. Metastatic breast cancer 2. Pneumoperitoneum 3. Sepsis 4. Hypokalemia Plan: Continue current medications. Patient is DO NOT RESUSCITATE with comfort care. Patient is on IV morphine drip, titrate for comfort. Monitor patient closely. Prognosis is grave. Continue supportive care. The impression and plan of care has been dictated as directed. : I performed a history and examination of this patient, discussed the same with the dictator. I agree with the dictator's note ,documented as a scribe. Any additional findings or plans will be noted.
[2018-04-30] MEDS: SODIUM CHLORIDE 0.9% 1,000 ML IV SCH (20:13)
[2018-04-30 20:22] VITALS: PULSE 146; TEMP 102.2
[2018-04-30] MEDS: MORPHINE SULFATE (100 MG/2 ML) 100 MG in SODIUM CHLORIDE 0.9% 100 ML IV SCH (22:34)
[2018-05-01 01:26] VITALS: RESP 30
--- NOTE | 2018-05-01 22:23 | DS ---
DISCHARGE SUMMARY PRIMARY CAUSE OF : Metastatic breast cancer stage IV. OTHER DIAGNOSES: 1. Abdominal viscus perforation with possible peritonitis and sepsis. 2. Change in mental status secondary to metabolic acidosis secondary to severe sepsis. 3. Hyperkalemia. 4. Increased lactic acid. 5. Increased WBC. 6. Anemia. 7. History of recent radiation . 8. History of fractured radius. 9. History of bilateral hip pain. 10.History of breast cancer with METS. 11.History of cholecystectomy. 12.Remote history of nicotine dependence. 13.NO CODE AND NO CPR, NO VENT. HISTORY OF PRESENT ILLNESS: This is a 52-year-old woman with a past medical history of multiple medical problems including CA breast with METS, was recently admitted to [facility]. Patient had received radiation of the sacrum. Subsequently patient was sent to the rehab and the patient is complaining of abdominal pain and the patient presented with abdominal viscous perforation and severe sepsis and multiple other complications. Surgery was consulted. The patient deemed not a candidate for any surgery and the patient is started on IV antibiotics and treated symptomatically. The prognosis extremely guarded throughout hospitalization. The patient continues to be stuporous. The case was discussed with the family on multiple occasions. They are aware of the grave prognosis. The patient was subsequently transitioned to hospice care and the patient succumbed to her above illnesses as mentioned. The prognosis remained guarded throughout hospitalization. Please refer to multiple notes and consultations, staff notes for further information. DARRENL / RAJENDRA: [id number] / MTDD
--- NOTE | 2018-05-04 07:42 | CDI ---
Last Revision, June 2017 Documentation Clarification Form Date: 05/04/18 From: Denisse Figueredo Phone: If you have a question regarding this query, please contact Barbara Aceves at [phone] between 8am and 5pm. Admit Date: 04/29/2018 3:54:00 PM Patient Name: Swati Valera Visit Number: [id number] Discharge Date: 05/01/18 ATTENTION: The Clinical Documentation Specialists (CDI) and [facility] Coding Staff appreciate your assistance in clarifying documentation. Please respond to the clarification below the line at the bottom and electronically sign. The CDI & [facility] Coding staff will review the response and follow-up if needed. Please note: Queries are made part of the Legal Health Record. If you have any questions, please contact the author of this message via ITS. Mavis Bower MD Altered mental status was documented in the H&P, discharge summary and 04/30 progress note. Patient history/risk factors: Patient has a history of breast cancer with multiple metastasis. The patient was admitted for pneumoperioneum, perforated viscus and severe sepsis. Clinical Indicators: Unresponsive. Labs: WBCs 16.4, H&H 7.8/23.6 & 5.8/19.0, Lactic acid 2.9, Potassium 6.4, glucose 42 CT: Clvarial osseous metastasis without evidence of pathological fracture. No acute intracranial hemorrhage, mass effect or midline shift is seen. Treatment: IV Zosyn, IV solumedrol. Patient was made comfort care. In your professional opinion, please clarify the etiology of the altered mental status, if known. Delirium (specify cause): Dementia (if know, specify Type and if with/without Behavioral Disturbance) Encephalopathy (specify Type and Underlying Medical Illness) Other condition (please specify) Unable to determine Encephalopathy metabolic MTDD
== END 2018-05-01 00:09 | disposition expired | DRG 871 ==
LOC: EC 12:57 → 6SEL 15:54
PROVIDERS: ADMIT Hospitalist; ATTEND Hospitalist
DX: A41.9 Sepsis, unspecified organism (principal); K65.9 Peritonitis, unspecified; G93.41 Metabolic encephalopathy; C79.51 Secondary malignant neoplasm of bone; C79.9 Secondary malignant neoplasm of unspecified site; E87.2 Acidosis; C50.919 Malignant neoplasm of unspecified site of unspecified female breast; E16.2 Hypoglycemia, unspecified; E87.5 Hyperkalemia; N28.9 Disorder of kidney and ureter, unspecified; R65.20 Severe sepsis without septic shock; G43.909 Migraine, unspecified, not intractable, without status migrainosus; G89.29 Other chronic pain; M25.561 Pain in right knee; D64.9 Anemia, unspecified; K66.8 Other specified disorders of peritoneum; Z51.5 Encounter for palliative care; Z79.01 Long term (current) use of anticoagulants; Z79.811 Long term (current) use of aromatase inhibitors; Z79.82 Long term (current) use of aspirin; Z79.899 Other long term (current) drug therapy; Z90.49 Acquired absence of other specified parts of digestive tract; Z87.891 Personal history of nicotine dependence; Z66 Do not resuscitate; Z91.041 Radiographic dye allergy status; Z91.013 Allergy to seafood; Z88.8 Allergy status to other drugs, medicaments and biological substances; Z91.018 Allergy to other foods; Z92.3 Personal history of irradiation
CPT/HCPCS: 36415; 70450; 71046; 74176; 80053; 80306; 81001; 82140; 82550; 82553; 83605; 84132; 84484; 85025; 85610; 85730; 87040; 87077; 87186; 96361; 96365; 96366; 96367; 96374; 96375; 96376; 99291